=== PATIENT | female | born 1945 | race Caucasian/White ===

== ENCOUNTER 2017-04-05 08:14 | Inpatient (IN) | payer MEDICARE, OTHER ==
[~2017-04-05] VITALS: Ht 177.8 cm; Wt 104.3 kg
[2017-04-05] VITALS (7 sets, daily range): BP systolic 123–159; BP diastolic 62–77
[~2017-04-05 08:14] MED LIST: FLUT1AER IH; GLUC-144 PO; IRON150C3 PO; KCL20TCR; LOSA1TAB20 PO; LOSA1TAB70 PO; METO-272 PO; MTP25TSR; NF-SOLIF5T PO
[2017-04-05 09:19] LABS: BASOPHILS % (AUTO) 1 % (0-10); EOSINOPHILS # (AUTO) 0.6 10^3/uL (0.0-0.3); EOSINOPHILS % (AUTO) 8 % (0-10); LYMPHOCYTES # (AUTO) 1.2 X 10^3 (1.0-4.0); LYMPHOCYTES % (AUTO) 17 % (12-44); MEAN CORPUSCULAR HEMOGLOBIN 17 PG (25-34); MEAN CORPUSCULAR HGB CONC 27 G/DL (32-36); MEAN CORPUSCULAR VOLUME 64 FL (80-99); MONOCYTES # (AUTO) 0.7 X 10^3 (0.0-1.0); MONOCYTES % (AUTO) 9 % (0-12); NEUTROPHILS # (AUTO) 4.9 X 10^3 (1.8-7.8); NEUTROPHILS % (AUTO) 66 % (42-75); PLATELET COUNT 246 10^3/uL (130-400); RED BLOOD COUNT 4.01 10^6/uL (4.35-5.85); RED CELL DISTRIBUTION WIDTH 22.9 % (10.0-14.5); WHITE BLOOD COUNT 7.4 10^3/uL (4.3-11.0)
[2017-04-05 09:24] LABS: BILIRUBIN,URINE NEGATIVE (NEGATIVE); KETONES,URINE NEGATIVE (NEGATIVE); LEUKOCYTE ESTERASE ,URINE 3+ (NEGATIVE); NITRITE,URINE NEGATIVE (NEGATIVE); PH,URINE 6 (5-9); PROTEIN,URINE 3+ (NEGATIVE); UROBILINOGEN,URINE NORMAL (NORMAL)
[2017-04-05 09:28] LABS: CALCIUM OXALATE CRYSTALS,UR RARE /LPF; SQUAMOUS EPITHELIAL CELL,UR 25-50 /HPF
[2017-04-05 09:30] LABS: INR 1.2 (0.8-1.4)
[2017-04-05 09:38] LABS: ALANINE AMINOTRANSFERASE 16 U/L (0-55); ALBUMIN 3.4 GM/DL (3.2-4.5); ANION GAP 10 MMOL/L (5-14); ASPARTATE AMINO TRANSFERASE 16 U/L (5-34); BILIRUBIN,TOTAL 0.7 MG/DL (0.1-1.0); BLOOD UREA NITROGEN 14 MG/DL (7-18); BUN/CREATININE RATIO 20 (0-20); CALCIUM 8.9 MG/DL (8.5-10.1); CARBON DIOXIDE 26 MMOL/L (21-32); CHLORIDE 104 MMOL/L (98-107); CREATININE SERUM 0.69 MG/DL (0.60-1.30); GFR ESTIMATED > 60; GLUCOSE 115 MG/DL (70-105); HEMOLYSIS 1 (-100-29); ICTERUS 0.6 (-100-1.9); LIPEMIA -3 (-100-49); POTASSIUM 3.8 MMOL/L (3.6-5.0); SODIUM 140 MMOL/L (135-145); TOTAL PROTEIN 6.2 GM/DL (6.4-8.2); hs C REACTIVE PROTEIN 2.14 MG/DL (0.00-0.50)
--- NOTE | 2017-04-05 09:39 | Diagnostic Imaging Report ---
INDICATION: Cough and congestion, shortness of breath. Compared 03/28/2016 FINDINGS: The lungs are clear. The heart and vessels normal. There is no effusion or pneumothorax. IMPRESSION: No acute appearing abnormality Dictated by: Dictated on workstation # [id number]
--- NOTE | 2017-04-05 09:46 | ED General ---
General Chief Complaint: Cough/Cold/Flu Symptoms Stated Complaint: ANEMIA Nursing Triage Note: pt has had cough for several weeks. she was seen at [facility] et had testing done. she reports persistent weakness et soa. diagnosed with severe anemia. she had positive occult stool. started taking iron . plans to have colonoscopy after 04/14/17. Nursing Sepsis Screen: No Definite Risk Source of Information: Patient, Old Records Exam Limitations: No Limitations History of Present Illness Time Seen by Provider: 08:24 Initial Comments This 71-year-old woman presents to the emergency room with complaints of significant weakness and dyspnea on exertion for about a month. She notes not feeling well since January when she had a bladder procedure done at [facility]. She has a history of bladder cancer which has been intermittently treated for about the last 10 years. She has had some other minor abnormalities she notes including some bruising under the left eye and a gout flare about 10 days ago. She was evaluated for anemia by Hemoccult card at Dr. Chavez's office. She was notified this was positive. Arrangements were made for endoscopy scheduled in April. Review of her chart reveals EGD and colonoscopy performed by Dr. Grayson last May. There was evidence of possible gastric, duodenal, and colon hemorrhage. She was on NSAIDs at the time and has since stopped NSAIDs and has been taking antacid therapy. She denies any pain at this time. She also has had a cough recently but no fever. Allergies and Home Medications Allergies Coded Allergies: No Known Drug Allergies (Verified , 05/19/07) Home Medications Ferrous Sulfate 325 Mg Tablet, 325 MG PO BID, (Reported) Fluticasone/Vilanterol 1 Each Blst.w.dev, 1 EACH IH BID PRN for WHEEZING, ( Reported) Hydrocodone/Acetaminophen 1 Each Tablet, 1 EACH PO Q8H PRN for PAIN, (Reported) Losartan/Hydrochlorothiazide 1 Each Tablet, 1 EACH PO DAILY, (Reported) Metoprolol Succinate 50 Mg Tab.sr.24h, 50 MG PO DAILY, (Reported) Solifenacin Succinate 5 Mg Tablet, 5 MG PO DAILY, (Reported) Constitutional: see HPI EENTM: see HPI Respiratory: see HPI Cardiovascular: no symptoms reported Gastrointestinal: see HPI Genitourinary: see HPI : No Musculoskeletal: no symptoms reported Skin: see HPI Psychiatric/Neurological: No Symptoms Reported Hematologic/Lymphatic: See HPI Immunological/Allergic: see HPI Past Jtvfgbx-Ahoqox-Zabjgs Hx Patient Social History Alcohol Use: Denies Use Recreational Drug Use: No Type Used: Cigarettes Recent Foreign Travel: No Contact w/Someone Who Travel: No Recent Infectious Disease Expo: No Immunizations Up To Date Date of Pneumonia Vaccine: May 30, 2015 Surgeries HX Surgeries: Yes (left TKR) Surgeries: Abdominal (colonoscopy and EGD) Respiratory Hx Respiratory Disorders: No Cardiovascular Hx Cardiac Disorders: Yes Cardiac Disorders: Hypertension Neurological Hx Neurological Disorders: No Reproductive System : No Hx Reproductive Disorders: No Genitourinary Hx Genitourinary Disorders: Yes (bladder cancer) Gastrointestinal Hx Gastrointestinal Disorders: Yes Gastrointestinal Disorders: Gastrointestinal Bleed Musculoskeletal Hx Musculoskeletal Disorders: Yes (ARTHRITIS) Endocrine Hx Endocrine Disorders: No HEENT HX ENT Disorders: No Cancer Hx Cancer: Yes Cancer: Bladder Psychosocial Hx Psychiatric Problems: No Blood Transfusions Hx Blood Disorders: Yes (anemia) Physical Exam Vital Signs Vital Sign - Last 12Hours 04/05/17 04/05/17 04/05/17 08:43 11:03 11:25 Temp 97.8 Pulse 93 Resp 20 B/P (MAP) 148/62 Pulse Ox 98 O2 Delivery Room Air Capillary Refill : Less Than 3 Seconds General Appearance: No Apparent Distress, WD/WN HEENT: PERRL/EOMI, Normal ENT Inspection, Pharynx Normal Neck: Normal Inspection Respiratory: Lungs Clear, Normal Breath Sounds, No Accessory Muscle Use, No Respiratory Distress Cardiovascular: Regular Rate, Rhythm, No Edema, No Murmur Gastrointestinal: Normal Bowel Sounds, Non Tender, Soft Extremity: Normal Inspection Neurologic/Psychiatric: Alert, Oriented x3, No Motor/Sensory Deficits, Normal Mood/Affect, hand ii blocker II-XII Norm as Tested Skin: Normal Color, Warm/Dry Progress/Results/Core Measures Results/Orders Lab Results Laboratory Tests Test 04/05/17 09:08 04/05/17 09:10 04/05/17 21:55 04/06/17 06:10 Range/Units White Blood Count 7.4 4.3-11.0 10^3/uL Red Blood Count 4.01 L 4.35-5.85 10^6/uL Hemoglobin 6.9 *L 8.8 #L 8.6 L 11.5-16.0 G/DL Hematocrit 26 L 30 L 30 L 35-52 % Mean Corpuscular Volume 64 L 80-99 FL Mean Corpuscular Hemoglobin 17 L 25-34 PG Mean Corpuscular Hemoglobin Concent 27 L 32-36 G/DL Red Cell Distribution Width 22.9 H 10.0-14.5 % Platelet Count 246 130-400 10^3/uL Mean Platelet Volume 9.0 7.4-10.4 FL Neutrophils (%) (Auto) 66 42-75 % Lymphocytes (%) (Auto) 17 12-44 % Monocytes (%) (Auto) 9 0-12 % Eosinophils (%) (Auto) 8 0-10 % Basophils (%) (Auto) 1 0-10 % Neutrophils # (Auto) 4.9 1.8-7.8 X 10^3 Lymphocytes # (Auto) 1.2 1.0-4.0 X 10^3 Monocytes # (Auto) 0.7 0.0-1.0 X 10^3 Eosinophils # (Auto) 0.6 H 0.0-0.3 10^3/uL Basophils # (Auto) 0.0 0.0-0.1 10^3/uL Prothrombin Time 15.0 H 12.2-14.7 SEC INR Comment 1.2 0.8-1.4 Activated Partial Thromboplast Time 31 24-35 SEC Sodium Level 140 135-145 MMOL/L Potassium Level 3.8 3.6-5.0 MMOL/L Chloride Level 104 98-107 MMOL/L Carbon Dioxide Level 26 21-32 MMOL/L Anion Gap 10 5-14 MMOL/L Blood Urea Nitrogen 14 7-18 MG/DL Creatinine 0.69 0.60-1.30 MG/DL Estimat Glomerular Filtration Rate > 60 BUN/Creatinine Ratio 20 0-20 Glucose Level 115 H 70-105 MG/DL Calcium Level 8.9 8.5-10.1 MG/DL Iron Level 10 L 35-180 ug/dL Total Iron Binding Capacity 425 H 280-380 ug/dL Unsaturated Iron Binding Capacity 415 ug/dL Transferrin % Saturation 2 L 15-50 % Ferritin 22.1 15.0-150.0 ng/mL Total Bilirubin 0.7 0.1-1.0 MG/DL Aspartate Amino Transf (AST/SGOT) 16 5-34 U/L Alanine Aminotransferase (ALT/SGPT) 16 0-55 U/L Alkaline Phosphatase 95 40-136 U/L C-Reactive Protein High Sensitivity 2.14 H 0.00-0.50 MG/DL Total Protein 6.2 L 6.4-8.2 GM/DL Albumin 3.4 3.2-4.5 GM/DL Urine Color YELLOW Urine Clarity SLIGHTLY CLOUDY Urine pH 6 5-9 Urine Specific [place] 1.015 L 1.016-1.022 Urine Protein 3+ H NEGATIVE Urine Glucose (UA) NEGATIVE NEGATIVE Urine Ketones NEGATIVE NEGATIVE Urine Nitrite NEGATIVE NEGATIVE Urine Bilirubin NEGATIVE NEGATIVE Urine Urobilinogen NORMAL NORMAL MG/DL Urine Leukocyte Esterase 3+ H NEGATIVE Urine RBC (Auto) 1+ H NEGATIVE Urine RBC RARE /HPF Urine WBC 10-25 H /HPF Urine Squamous Epithelial Cells 25-50 H /HPF Urine Crystals PRESENT H /LPF Urine Calcium Oxalate Crystals RARE H /LPF Urine Bacteria NEGATIVE /HPF Urine Casts NONE /LPF Urine Mucus NEGATIVE /LPF Urine Culture Indicated YES Micro Results Microbiology 04/05/17 Urine Culture - Preliminary, Resulted My Orders Orders - IVAN HARRELL MD Saline Lock/Iv-Start (04/05/17 08:24) Cbc With Automated Diff (04/05/17 08:24) Comprehensive Metabolic Panel (04/05/17 09:04) Hs C Reactive Protein (04/05/17 09:04) Protime With Inr (04/05/17 09:04) Partial Thromboplastin Time (04/05/17 09:04) Ua Culture If Indicated (04/05/17 09:04) Chest Pa/Lat (2 View) (04/05/17 09:04) Urine Culture (04/05/17 09:10) Red Cells Leukocytes Reduced (04/05/17 09:30) Type And Screen (04/05/17 09:30) Ns Iv 1000 Ml (Sodium Chloride 0.9%) (04/05/17 10:03) Red Cells Leukocytes Reduced (04/05/17 10:07) Pantoprazole Injection (Protonix Injecti (04/05/17 10:15) Iron Tibc %Sat & Ferritin (04/05/17 10:14) Medications Given in ED Vital Signs/I&O Vital Sign - Last 12Hours 04/06/17 04/06/17 04/06/17 04:00 08:00 09:00 Temp 98.4 97.1 Pulse 82 80 Resp 18 20 B/P (MAP) 152/82 135/61 Pulse Ox 92 97 O2 Delivery Room Air Room Air Room Air Blood Pressure Mean: 90 Progress Note : Progress Note Patient was found to be severely anemic. 2 units of PRBCs were ordered for transfusion with 2 units to be held. Protonix 40 mg IV was ordered to be given in the ER. Urinary tract infection will be treated with Rocephin on the floor. Blood transfusion will be started on the floor as well. I reviewed risks and benefits of transfusion with the patient and she verbally consents. Diagnostic Imaging Diagonstic Imaging: Xray Plain Films/CT/US/NM/MRI: chest Comments Chest X reviewed by me and report reviewed. See report below: NAME: EDITH ROMERO [facility] REC#: [id number] PT STATUS: REG ER : 1945 PHYSICIAN: IVAN HARRELL MD ADMIT DATE: 04/05/17/ER Draft Date of Exam:04/05/17 CHEST PA/LAT (2 VIEW) INDICATION: Cough and congestion, shortness of breath. Compared 03/28/2016 FINDINGS: The lungs are clear. The heart and vessels normal. There is no effusion or pneumothorax. IMPRESSION: No acute appearing abnormality Dictated on workstation # [id number] Dict: 04/05/1721 Trans: 04/05/17 0939 [facility] [id number] Interpreted by: DIONNA KENYON Departure Communication Time/Spoke to Admitting Phy: 10:[address] tAkinson Time/Spoke to Consulting Physi: 10:05 Communication/Consulting Dr. Freeman Impression Impression: Primary Impression: Severe anemia Additional Impressions: Dyspnea on exertion GI bleed Qualified Codes: K92.2 - Gastrointestinal hemorrhage, unspecified Urinary tract infection Qualified Codes: N39.0 - Urinary tract infection, site not specified History of bladder cancer Generalized weakness Disposition: ADMITTED INPATIENT Condition: Improved Decision to Admit Reason: Admit from ER (General) Decision to Admit/Date: Apr 05, 2017 Time/Decision to Admit Time: 09:45 Departure-Patient Inst. Referrals: KEYONA CHAVEZ DO (PCP/Family) Primary Care Physician IVAN HARRELL MD Apr 05, 2017 09:46
[2017-04-05] MEDS ORDERED: NS IV 1000 ML 1,000 ML IV ONE (10:03)
[2017-04-05] MEDS ORDERED: PANTOPRAZOLE 40 MG/10 ML (PROTONIX) VIAL IV ONE (10:15)
[2017-04-05] MEDS ORDERED: CATHETER FLUSH 10 ML SYR IV PRN (11:45)
[2017-04-05] MEDS ORDERED: ONDANSETRON 4 MG/2 ML (SDV) Z0FRAN IV PRN (11:45)
[2017-04-05] MEDS: cefTRIAXone 1 GM/NS 50 ML IVPB IV SCH ×2 (11:46)
[2017-04-05] MEDS: NS IV 1000 ML 1,000 ML IV SCH (11:51)
--- NOTE | 2017-04-05 12:34 | History & Physical-Hospitalist ---
HPI History of Present Illness: HPI/Chief Complaint CC: Severe weakness and dyspnea with severe anemia with hemoglobin 6.9 HPI: This is a 71-year-old white female clinic patient of Dr. Chavez with a past medical history of GI bleed due to ulcers in May 2016 after she was scoped by Dr. Grayson and history of bladder cancer managed at [facility] with recent bladder procedure in January 2017 the presents to the hospital due to weakness and dyspnea that worsened to the point that she can no longer make it around her house. She was found to have hemoglobin of 6.9 and had a history of Hemoccult positive at Dr. Chavez's office so Scopes were arranged at that time for April but she is worsen to the point that she has to have transfusions and likely endoscopy while she is in the hospital. Currently she denies any abdominal pain no melena and no hematochezia and no hematemesis. Source: patient Exam Limitations: no limitations Date Seen 04/05/17 Time Seen by Provider: 11:15 Attending Physician Cyndy Lilly DO PCP Ian Chavez DO Referring Physician Date of Admission Apr 05, 2017 at 10:33 Home Medications & Allergies Home Medications Reviewed patient Home Medication Reconciliation Form Allergies Allergies Coded Allergies No Known Drug Allergies (Verified05/19/07) Past Ternpcm-Aitdep-Floahz Hx Patient Social History Marrital Status: Employed/Student: retired Alcohol Use: Denies Use Recreational Drug Use: No Type Used: Cigarettes Recent Foreign Travel: No Contact w/other who traveled: No Recent Infectious Disease Expo: No Immunizations Up To Date Date of Pneumonia Vaccine: May 30, 2015 Surgeries HX Surgeries: Yes (left TKR) Surgeries: Abdominal (colonoscopy and EGD) Respiratory Hx Respiratory Disorders: No Cardiovascular Hx Cardiovascular Disorders: Yes Cardiac Disorders: Hypertension Neurological Hx Neurological Disorders: No Reproductive System : No Hx Reproductive Disorders: No Genitourinary Hx Genitourinary Disorders: Yes (bladder cancer) Genitourinary Disorders: Bladder Infection Gastrointestinal Hx Gastrointestinal Disorders: Yes Gastrointestinal Disorders: Gastrointestinal Bleed, Esophagitis Musculoskeletal Hx Musculoskeletal Disorders: Yes (ARTHRITIS) Musculoskeletal Disorders: Arthritis Endocrine Hx Endocrine Disorders: No HEENT HX ENT Disorders: No Cancer Hx Cancer: Yes Cancer: Bladder Psychosocial Hx Psychiatric Problems: No Blood Transfusions Hx Blood Disorders: Yes (anemia) Review of Systems Date Seen by Provider: Apr 05, 2017 Time Seen by Provider: 11:15 Constitutional: see HPI, dizziness, weakness EENTM: no symptoms reported Respiratory: dyspnea on exertion Cardiovascular: no symptoms reported Gastrointestinal: constipation Genitourinary: no symptoms reported Musculoskeletal: back pain Skin: no symptoms reported Psychiatric/Neurological: No Symptoms Reported All Other Systems Reviewed Negative Unless Noted: Yes Physical Exam Physical Exam Vital Signs Vital Sign - Last 12Hours 04/05/17 08:43 Temp 97.8 Pulse 93 Resp 20 B/P (MAP) 148/62 Capillary Refill : Less Than 3 Seconds General Appearance: No Apparent Distress, WD/WN, Chronically ill, Other (pale) Eyes: Bilateral Eye Normal Inspection, Bilateral Eye PERRL HEENT: PERRL/EOMI, Normal ENT Inspection, Pharynx Normal Neck: Full Range of Motion, Normal Inspection, Non Tender, Supple, Carotid Bruit Respiratory: Chest Non Tender, Lungs Clear, Normal Breath Sounds, No Accessory Muscle Use, No Respiratory Distress Cardiovascular: Regular Rate, Rhythm, No Edema, No Gallop, No JVD, No Murmur, Normal Peripheral Pulses Gastrointestinal: Normal Bowel Sounds, No Organomegaly, No Pulsatile Mass, Non Tender, Soft Back: Normal Inspection, No CVA Tenderness, No Vertebral Tenderness Extremity: Normal Capillary Refill, Normal Inspection, Normal Range of Motion, Non Tender, No Calf Tenderness, No Pedal Edema Neurologic/Psychiatric: Alert, Oriented x3, No Motor/Sensory Deficits, Normal Mood/Affect Skin: Normal Color, Warm/Dry Lymphatic: No Adenopathy Results Results/Procedures Lab Laboratory Tests 04/05/17 09:08 Assessment/Plan Admission Diagnosis Assessment: Dyspnea with weakness and severe anemia hemoglobin 6.9 in need of transfusions with a history of gastric ulcer bleed last year History of bladder cancer managed at [facility] Hypertension GERD Asthma Assessment and Plan Plan: Transfuse 2 units of packed red blood cells Consult Dr. Freeman for endoscopies Iron workup Reconcile all home meds when completed CYNDY LILLY DO Apr 05, 2017 12:34
[2017-04-05] MEDS ORDERED: HYDR-3812 PO (12:37)
[2017-04-05] MEDS ORDERED: FERR-74 PO (12:39)
--- NOTE | 2017-04-05 16:26 | Consultation ---
History of Present Illness History of Present Illness Patient Consulted On(cielo/time) 04/05/17 12:40 Date of Admission History of Present Illness consult for anemia from Dr. Atkinson Patientis a 71-year-old female who states that she's been feeling weak for approximately 5 weeks. Patient states that she would get short of breath while walking around her house. Patient was found to have occult positive stool recently in Dr. Chavez's office. She has history of gastric ulcer in 2016 she states, she was noted to have angiodysplasia of the GI tract along with gastritis. Patient does not have any significant abdominal pain she states. She is just easily fatigued. She has not noticed any blood in her stools. She does state there dark but she does take iron. She denies any nausea vomiting fever sweats chills or chest pain. Allergies and Home Medications Allergies Coded Allergies: No Known Drug Allergies (Verified , 05/19/07) Home Medications Ferrous Sulfate 325 Mg Tablet, 325 MG PO BID, (Reported) Fluticasone/Vilanterol 1 Each Blst.w.dev, 1 EACH IH BID PRN for WHEEZING, ( Reported) Glucosamine HCl/Chondr [place] A Na 1 Each Tablet, 1 EACH PO DAILY, (Reported) Hydrocodone/Acetaminophen 1 Each Tablet, 1 EACH PO Q8H PRN for PAIN, (Reported) Losartan/Hydrochlorothiazide 1 Each Tablet, 1 EACH PO DAILY, (Reported) Metoprolol Succinate 50 Mg Tab.sr.24h, 50 MG PO DAILY, (Reported) Solifenacin Succinate 5 Mg Tablet, 5 MG PO DAILY, (Reported) Past Chposud-Thdacf-Edlkkt Hx Patient Social History Alcohol Use: Denies Use Recreational Drug Use: No Type Used: Cigarettes Recent Foreign Travel: No Contact w/Someone Who Travel: No Recent Infectious Disease Expo: No Recent Hopitalizations: No Physical Abuse Screen: No Sexual Abuse: No Immunizations Up To Date Date of Pneumonia Vaccine: May 30, 2015 Seasonal Allergies Seasonal Allergies: No Surgeries HX Surgeries: Yes (left TKR) Surgeries: Abdominal, Hysterectomy Respiratory Hx Respiratory Disorders: No Respiratory Disorders: Pneumonia Cardiovascular Hx Cardiac Disorders: Yes Cardiac Disorders: Hypertension Neurological Hx Neurological Disorders: No Reproductive System : No Hx Reproductive Disorders: No Sexually Transmitted Disease: No HIV/AIDS: No Female Reproductive Disorders: Denies Genitourinary Hx Genitourinary Disorders: Yes (bladder cancer) Genitourinary Disorders: Bladder Infection Gastrointestinal Hx Gastrointestinal Disorders: Yes Gastrointestinal Disorders: Gastrointestinal Bleed, Esophagitis Musculoskeletal Hx Musculoskeletal Disorders: Yes (ARTHRITIS) Musculoskeletal Disorders: Arthritis Endocrine Hx Endocrine Disorders: No HEENT HX ENT Disorders: No HEENT Disorders: Cataract Loss of Vision: Denies Hearing Impairment: Denies Cancer Hx Cancer: Yes Cancer: Bladder Psychosocial Hx Psychiatric Problems: No Blood Transfusions Hx Blood Disorders: Yes (anemia) Family Medical History Significant Family History: No Pertinent Family Hx Review of Systems-General Date Seen by Provider: Apr 05, 2017 Time Seen by Provider: 12:40 Constitutional: weakness EENTM: no symptoms reported Respiratory: dyspnea on exertion Cardiovascular: no symptoms reported Gastrointestinal: see HPI Genitourinary: no symptoms reported Musculoskeletal: no symptoms reported Skin: no symptoms reported Psychiatric/Neurological: No Symptoms Reported Physical Exam-General Problems Physical Exam Vital Signs Vital Sign - Last 12Hours 04/05/17 04/05/17 04/05/17 08:43 11:03 11:25 Temp 97.8 Pulse 93 Resp 20 B/P (MAP) 148/62 Pulse Ox 98 O2 Delivery Room Air Capillary Refill : Less Than 3 Seconds General Appearance: no apparent distress HEENT: PERRL/EOMI, normal ENT inspection Neck: supple Respiratory: no respiratory distress, no accessory muscle use Cardiovascular: regular rate, rhythm Gastrointestinal: non tender, soft, No distended, No guarding, No rebound Rectal: deferred Back: normal inspection Extremities: non-tender, normal inspection Neurologic/Psychiatric: alert, normal mood/affect, oriented x 3 Skin: warm/dry Data Review Labs Laboratory Tests 04/05/17 09:08: White Blood Count 7.4, Red Blood Count 4.01L, Hemoglobin 6.9*L, Hematocrit 26L, Mean Corpuscular Volume 64L, Mean Corpuscular Hemoglobin 17L, Mean Corpuscular Hemoglobin Concent 27L, Red Cell Distribution Width 22.9H, Platelet Count 246, Mean Platelet Volume 9.0, Neutrophils (%) (Auto) 66, Lymphocytes (%) (Auto) 17, Monocytes (%) (Auto) 9, Eosinophils (%) (Auto) 8, Basophils (%) (Auto) 1, Neutrophils # (Auto) 4.9, Lymphocytes # (Auto) 1.2, Monocytes # (Auto) 0.7, Eosinophils # (Auto) 0.6H, Basophils # (Auto) 0.0, Prothrombin Time 15.0H, INR Comment 1.2, Activated Partial Thromboplast Time 31, Sodium Level 140, Potassium Level 3.8, Chloride Level 104, Carbon Dioxide Level 26, Anion Gap 10, Blood Urea Nitrogen 14, Creatinine 0.69, Estimat Glomerular Filtration Rate > 60 , BUN/Creatinine Ratio 20, Glucose Level 115H, Calcium Level 8.9, Total Bilirubin 0.7, Aspartate Amino Transf (AST/SGOT) 16, Alanine Aminotransferase ( ALT/SGPT) 16, Alkaline Phosphatase 95, C-Reactive Protein High Sensitivity 2.14H , Total Protein 6.2L, Albumin 3.4 04/05/17 09:10: Urine Color YELLOW, Urine Clarity SLIGHTLY CLOUDY, Urine pH 6, Urine Specific [place] 1.015L, Urine Protein 3+H, Urine Glucose (UA) NEGATIVE, Urine Ketones NEGATIVE, Urine Nitrite NEGATIVE, Urine Bilirubin NEGATIVE, Urine Urobilinogen NORMAL, Urine Leukocyte Esterase 3+H, Urine RBC (Auto) 1+H, Urine RBC RARE, Urine WBC 10-25H, Urine Squamous Epithelial Cells 25-50H, Urine Crystals PRESENTH, Urine Calcium Oxalate Crystals RAREH, Urine Bacteria NEGATIVE, Urine Casts NONE, Urine Mucus NEGATIVE, Urine Culture Indicated YES Assessment/Plan Assessment/Plan Assessment/Plan patient is 71-year-old female with severe anemia with a hemoglobin of 6.9. She is recent outpatient Hemoccult positive stool she has a history of gastric ulcer and angiodysplasia along the GI tract, history of bladder cancer hypertension Patient is being transfused 2 units packed red blood cells. We will continue to monitor hemoglobin. Would place on Protonix 40 mg IV twice a day. Will transfuse as needed. We'll possibly plan on endoscopy inpatient if does not stabilize. Nothing by mouth after midnight Clinical Quality Measures DVT/VTE Risk/Contraindication: Risk Factor Score Per Nursin RFS Level Per Nursing on Admit: 4+=Very High TRACE ROMERO DO Apr 05, 2017 4:25 pm
[2017-04-05] MEDS ORDERED: fentaNYL INJECTION 100 MCG/2 ML AMP IVP PRN (17:00)
[2017-04-05] MEDS ORDERED: ACETAMINOPHEN 500 MG TAB (TYLENOL) PO PRN (17:00)
[2017-04-05] MEDS ORDERED: ONDANSETRON 4 MG/2 ML (SDV) Z0FRAN IVP PRN (17:00)
[2017-04-05] MEDS ORDERED: HYDROcodone/APAP 5 MG/325 MG (LORTAB) TAB PO PRN (17:00)
[2017-04-05] MEDS ORDERED: ALPRAZolam 0.25 MG (XANAX) TAB PO PRN (17:00)
[2017-04-05] MEDS ORDERED: RT-ADVAIR HFA 115/21 MCG PER PUFF IH PRN (20:00)
[2017-04-05] MEDS: PANTOPRAZOLE 40 MG/10 ML (PROTONIX) VIAL IV SCH (21:52)
[2017-04-06] VITALS: BP 131/67
[2017-04-06] MEDS: NS IV 1000 ML 1,000 ML IV SCH (01:41)
[2017-04-06 04:00] VITALS: BP 152/82
[2017-04-06] MEDS ORDERED: TROSPIUM 20 MG (SANCTURA) TAB PO SCH (06:00)
[2017-04-06 06:55] LABS: FERRITIN 22.1 ng/mL (15.0-150.0)
[2017-04-06 08:00] VITALS: BP 135/61
[2017-04-06] MEDS ORDERED: IRON SUCROSE INJECTION 200 MG in NS (IVPB) 100 ML IV SCH (08:00)
[2017-04-06] MEDS: PANTOPRAZOLE 40 MG/10 ML (PROTONIX) VIAL IV SCH (08:54)
[2017-04-06] MEDS: cefTRIAXone 1 GM/NS 50 ML IVPB IV SCH ×2 (08:55)
[2017-04-06] MEDS ORDERED: HYDROCHLOROTHIAZIDE 25 MG (HCTZ) TAB PO SCH (09:00)
[2017-04-06] MEDS ORDERED: meTOproloL SUCCINATE 50 MG (TOPROL XL) TAB PO SCH (09:00)
[2017-04-06] MEDS ORDERED: LOSARTAN 50 MG (COZAAR) TAB PO SCH (09:00)
--- NOTE | 2017-04-06 09:12 | Progress Note ---
Subjective Time Seen by Provider: 08:40 Subjective/Events-last exam Patient sitting up by her bed. Even respirations. No distress. Denies any n/v. Denies any dark tarry stools. Objective Exam Vital Signs Date Time Temp Pulse Resp B/P (MAP) Pulse Ox O2 Delivery O2 Flow Rate FiO2 04/06/17 04:00 98.4 82 18 152/82 92 Room Air 04/06/17 00:00 98.0 78 16 131/67 95 Room Air 04/05/17 19:15 99.4 83 20 159/68 95 Room Air 04/05/17 19:15 99.4 83 20 159/68 95 Room Air 04/05/17 17:02 99.0 89 20 147/75 96 Room Air 04/05/17 16:45 98.9 84 20 144/77 97 Room Air 04/05/17 16:45 98.9 84 20 144/77 97 Room Air 04/05/17 15:02 98.7 78 20 151/77 98 Room Air 04/05/17 13:05 98.2 80 20 123/70 98 Room Air 04/05/17 12:41 98.7 85 20 133/62 99 Room Air 04/05/17 12:00 Room Air 04/05/17 11:25 99.3 85 18 133/62 99 Room Air 04/05/17 11:03 90 18 98 I & O 04/06/17 07:00 Intake Total 0 ml Output Total 600 ml Balance -600 ml Capillary Refill : Less Than 3 Seconds General Appearance: No Apparent Distress, WD/WN, Chronically ill, Other (pale) HEENT: PERRL/EOMI, Normal ENT Inspection, Pharynx Normal Neck: Full Range of Motion, Normal Inspection, Non Tender Respiratory: Chest Non Tender, No Accessory Muscle Use, No Respiratory Distress Cardiovascular: Regular Rate, Rhythm, Normal Peripheral Pulses Gastrointestinal: non tender, soft, no organomegaly, No distended, No guarding , No rebound Extremity: Normal Capillary Refill, Normal Inspection, Normal Range of Motion, Non Tender, No Calf Tenderness, No Pedal Edema Neurologic/Psychiatric: Alert, Oriented x3, No Motor/Sensory Deficits, Normal Mood/Affect Skin: Normal Color, Warm/Dry Lymphatic: No Adenopathy Results Lab Laboratory Tests Test 04/05/17 09:08 6/25/17 09:10 04/05/17 21:55 04/06/17 06:10 Range/Units White Blood Count 7.4 4.3-11.0 10^3/uL Red Blood Count 4.01 L 4.35-5.85 10^6/uL Hemoglobin 6.9 *L 8.8 #L 8.6 L 11.5-16.0 G/DL Hematocrit 26 L 30 L 30 L 35-52 % Mean Corpuscular Volume 64 L 80-99 FL Mean Corpuscular Hemoglobin 17 L 25-34 PG Mean Corpuscular Hemoglobin Concent 27 L 32-36 G/DL Red Cell Distribution Width 22.9 H 10.0-14.5 % Platelet Count 246 130-400 10^3/uL Mean Platelet Volume 9.0 7.4-10.4 FL Neutrophils (%) (Auto) 66 42-75 % Lymphocytes (%) (Auto) 17 12-44 % Monocytes (%) (Auto) 9 0-12 % Eosinophils (%) (Auto) 8 0-10 % Basophils (%) (Auto) 1 0-10 % Neutrophils # (Auto) 4.9 1.8-7.8 X 10^3 Lymphocytes # (Auto) 1.2 1.0-4.0 X 10^3 Monocytes # (Auto) 0.7 0.0-1.0 X 10^3 Eosinophils # (Auto) 0.6 H 0.0-0.3 10^3/uL Basophils # (Auto) 0.0 0.0-0.1 10^3/uL Prothrombin Time 15.0 H 12.2-14.7 SEC INR Comment 1.2 0.8-1.4 Activated Partial Thromboplast Time 31 24-35 SEC Sodium Level 140 135-145 MMOL/L Potassium Level 3.8 3.6-5.0 MMOL/L Chloride Level 104 98-107 MMOL/L Carbon Dioxide Level 26 21-32 MMOL/L Anion Gap 10 5-14 MMOL/L Blood Urea Nitrogen 14 7-18 MG/DL Creatinine 0.69 0.60-1.30 MG/DL Estimat Glomerular Filtration Rate > 60 BUN/Creatinine Ratio 20 0-20 Glucose Level 115 H 70-105 MG/DL Calcium Level 8.9 8.5-10.1 MG/DL Iron Level 10 L 35-180 ug/dL Total Iron Binding Capacity 425 H 280-380 ug/dL Unsaturated Iron Binding Capacity 415 ug/dL Transferrin % Saturation 2 L 15-50 % Ferritin 22.1 15.0-150.0 ng/mL Total Bilirubin 0.7 0.1-1.0 MG/DL Aspartate Amino Transf (AST/SGOT) 16 5-34 U/L Alanine Aminotransferase (ALT/SGPT) 16 0-55 U/L Alkaline Phosphatase 95 40-136 U/L C-Reactive Protein High Sensitivity 2.14 H 0.00-0.50 MG/DL Total Protein 6.2 L 6.4-8.2 GM/DL Albumin 3.4 3.2-4.5 GM/DL Urine Color YELLOW Urine Clarity SLIGHTLY CLOUDY Urine pH 6 5-9 Urine Specific Parkin 1.015 L 1.016-1.022 Urine Protein 3+ H NEGATIVE Urine Glucose (UA) NEGATIVE NEGATIVE Urine Ketones NEGATIVE NEGATIVE Urine Nitrite NEGATIVE NEGATIVE Urine Bilirubin NEGATIVE NEGATIVE Urine Urobilinogen NORMAL NORMAL MG/DL Urine Leukocyte Esterase 3+ H NEGATIVE Urine RBC (Auto) 1+ H NEGATIVE Urine RBC RARE /HPF Urine WBC 10-25 H /HPF Urine Squamous Epithelial Cells 25-50 H /HPF Urine Crystals PRESENT H /LPF Urine Calcium Oxalate Crystals RARE H /LPF Urine Bacteria NEGATIVE /HPF Urine Casts NONE /LPF Urine Mucus NEGATIVE /LPF Urine Culture Indicated YES Laboratory Tests 04/05/17 09:08: White Blood Count 7.4, Red Blood Count 4.01L, Hemoglobin 6.9*L, Hematocrit 26L, Mean Corpuscular Volume 64L, Mean Corpuscular Hemoglobin 17L, Mean Corpuscular Hemoglobin Concent 27L, Red Cell Distribution Width 22.9H, Platelet Count 246, Mean Platelet Volume 9.0, Neutrophils (%) (Auto) 66, Lymphocytes (%) (Auto) 17, Monocytes (%) (Auto) 9, Eosinophils (%) (Auto) 8, Basophils (%) (Auto) 1, Neutrophils # (Auto) 4.9, Lymphocytes # (Auto) 1.2, Monocytes # (Auto) 0.7, Eosinophils # (Auto) 0.6H, Basophils # (Auto) 0.0, Prothrombin Time 15.0H, INR Comment 1.2, Activated Partial Thromboplast Time 31, Sodium Level 140, Potassium Level 3.8, Chloride Level 104, Carbon Dioxide Level 26, Anion Gap 10, Blood Urea Nitrogen 14, Creatinine 0.69, Estimat Glomerular Filtration Rate > 60 , BUN/Creatinine Ratio 20, Glucose Level 115H, Calcium Level 8.9, Iron Level 10L , Total Iron Binding Capacity 425H, Unsaturated Iron Binding Capacity 415, Transferrin % Saturation 2L, Ferritin 22.1, Total Bilirubin 0.7, Aspartate Amino Transf (AST/SGOT) 16, Alanine Aminotransferase (ALT/SGPT) 16, Alkaline Phosphatase 95, C-Reactive Protein High Sensitivity 2.14H, Total Protein 6.2L, Albumin 3.4 04/05/17 09:10: Urine Color YELLOW, Urine Clarity SLIGHTLY CLOUDY, Urine pH 6, Urine Specific Parkin 1.015L, Urine Protein 3+H, Urine Glucose (UA) NEGATIVE, Urine Ketones NEGATIVE, Urine Nitrite NEGATIVE, Urine Bilirubin NEGATIVE, Urine Urobilinogen NORMAL, Urine Leukocyte Esterase 3+H, Urine RBC (Auto) 1+H, Urine RBC RARE, Urine WBC 10-25H, Urine Squamous Epithelial Cells 25-50H, Urine Crystals PRESENTH, Urine Calcium Oxalate Crystals RAREH, Urine Bacteria NEGATIVE, Urine Casts NONE, Urine Mucus NEGATIVE, Urine Culture Indicated YES 04/05/17 21:55: Hemoglobin 8.8#L, Hematocrit 30L 04/06/17 06:10: Hemoglobin 8.6L, Hematocrit 30L Microbiology 04/05/17 Urine Culture - Preliminary, Resulted Assessment/Plan Assessment/Plan Assessment/Plan Anemia- H&H- 8.6 and 30 this morning HX bladder Cancer Hx gastric Ulcer HTN We will continue with Protonix IV 40 mg bid. Transfuse PRBC as needed. EGD this afternoon. Continue NPO. Freeman- Patient with no new complaints. Wanting food. Transfused yesterday. Denies n/v fever sweats chills shortness of breath or chest pain. general no acute distress heart reg lungs nonlabored abdomen soft no organomegaly nontender ext nontender alert and oriented anemia secondary to gi bleed, history of gastric ulcer angiodysplasia along gi tract hx bladder cancer, htn we discussed options wishes to proceed with egd for further evaluation npo protonix bid further recs pending egd Clinical Quality Measures DVT/VTE Risk/Contraindication: Risk Factor Score Per Nursin RFS Level Per Nursing on Admit: 4+=Very High REBECA JHA SENIOR OFFICER Apr 06, 2017 9:12 am TRACE FREEMNA DO Apr 06, 2017 11:00 am
--- NOTE | 2017-04-06 09:41 | Discharge Summary-Hospitalist ---
Diagnosis/Chief Complaint Date of Admission Apr 05, 2017 at 10:33 Date of Discharge Admission Diagnosis Assessment: Dyspnea with weakness and severe anemia hemoglobin 6.9 in need of transfusions with a history of gastric ulcer bleed last year History of bladder cancer managed at [facility] Hypertension GERD Asthma Discharge Diagnosis Assessment: Dyspnea with weakness and severe anemia hemoglobin 6.9 in need of transfusions with a history of gastric ulcer bleed last year and EGD revealed duodenitis and gastric ulcer again placed on appropriate meds History of bladder cancer managed at [facility] Hypertension GERD Asthma Plan: Transfuse 2 units of packed red blood cells Consult Dr. Freeman for endoscopies Iron workup Reconcile all home meds when completed Reason Hospital Visit/Course CC: Severe weakness and dyspnea with severe anemia with hemoglobin 6.9 HPI: This is a 71-year-old white female clinic patient of Dr. Chavez with a past medical history of GI bleed due to ulcers in May 2016 after she was scoped by Dr. Grayson and history of bladder cancer managed at [facility] with recent bladder procedure in January 2017 the presents to the hospital due to weakness and dyspnea that worsened to the point that she can no longer make it around her house. She was found to have hemoglobin of 6.9 and had a history of Hemoccult positive at Dr. Chavez's office so Scopes were arranged at that time for April but she is worsen to the point that she has to have transfusions and likely endoscopy while she is in the hospital. Currently she denies any abdominal pain no melena and no hematochezia and no hematemesis. Had an uneventful hospital course. Received 2 units of blood. EGD revealed no active bleeding but ulcers as likely source and was placed on Carafate and PPI and DC home in stable condition. Discharge Summary Discharge Physical Examination Allergies: Coded Allergies: No Known Drug Allergies (Verified , 05/19/07) Vitals & I&Os Vital Signs Date Time Temp Pulse Resp B/P (MAP) Pulse Ox O2 Delivery O2 Flow Rate FiO2 04/06/17 16:05 75 20 177/76 99 Room Air 04/06/17 12:00 98.2 Hospital Course Labs (last 24 hrs) Laboratory Tests 04/05/17 21:55: Hemoglobin 8.8#L, Hematocrit 30L 04/06/17 06:10: Hemoglobin 8.6L, Hematocrit 30L 04/06/17 14:04: Hemoglobin 8.5L, Hematocrit 29L Microbiology 04/05/17 Urine Culture - Preliminary, Resulted Pending Labs Laboratory Tests 04/06/17 14:04: Hemoglobin 8.5, Hematocrit 29 Discharge Home Medications: Active Scripts Active Carafate (Sucralfate) 1 Gm Tablet 1 Gm PO Q6H Protonix (Pantoprazole Sodium) 40 Mg Tablet.dr 40 Mg PO BID Reported Ferrous Sulfate 325 Mg Tablet 325 Mg PO BID Hydrocodon -Acetaminophen 5-325 (Hydrocodone/Acetaminophen) 1 Each Tablet 1 Each PO Q8H PRN Vesicare (Solifenacin Succinate) 5 Mg Tablet 5 Mg PO DAILY Breo Ellipta 100-25 Mcg INH (Fluticasone/Vilanterol) 1 Each Blst.w.dev 1 Each IH BID PRN Losartan-Hctz 100-25 mg Tab (Losartan/Hydrochlorothiazide) 1 Each Tablet 1 Each PO DAILY Metoprolol Succinate Xl 50 Mg (Metoprolol Succinate) 50 Mg Tab.sr.24h 50 Mg PO DAILY Instructions to patient/family Please see electonic discharge instructions given to patient. Clinical Quality Measures DVT/VTE Risk/Contraindication: Risk Factor Score Per Nursin RFS Level Per Nursing on Admit: 4+=Very High PRABHAKAR LILLY DO Apr 06, 2017 09:41
[2017-04-06 12:00] VITALS: BP 177/76
[2017-04-06] MEDS ORDERED: proPOfol 200 MG/20 ML (DIPRIVAN) VIAL IV ONE (13:08)
[2017-04-06] MEDS ORDERED: HURRICAINE EXT TUBE (BENZOCAINE) ONE (13:08)
[2017-04-06] MEDS ORDERED: NS IV 500 ML 500 ML ONE (13:08)
[2017-04-06] MEDS ORDERED: MIDAZOLAM 2 MG/2 ML (VERSED) VIAL ONE (13:18)
--- NOTE | 2017-04-06 13:40 | Progress Note-Post Operative ---
Post-Operative Progess Note Surgeon (s)/Graphics Specialist (s) Surgeon TRACE ROMERO DO Graphics Specialist: na Pre-Operative Diagnosis gi bleed, anemia Post-Operative Diagnosis duodenitis, small antral ulcer, small hiatal hernia Procedure & Operative Findings Date of Procedure 04/06/17 Procedure Performed/Findings egd c biopsy Anesthesia Type per mda Estimated Blood Loss Estimated blood loss (mL): none Specimens/Packing Specimens Removed antrum TRACE ROMERO DO Apr 06, 2017 1:40 pm
[2017-04-06] MEDS ORDERED: NS IV 500 ML 500 ML IV ONE (13:45)
[2017-04-06] MEDS ORDERED: HURRICAINE EXT TUBE (BENZOCAINE) XX ONE (13:45)
[2017-04-06] MEDS ORDERED: SUCR1TAB36 PO (14:07)
[2017-04-06] MEDS ORDERED: PANT40TA2 PO (14:07)
[2017-04-06 16:05] VITALS: BP 177/76
--- OUTSIDE RECORDS SUMMARY | 2017-04-06 18:19 | XMS REPORT | Continuity of Care Document ---
Author Author [facility] Organization [facility] Address Unknown Phone Unavailable Care Team Providers Care Apprentice Technician Name Role Phone Ian Chavez III PCP [phone] Source Comments Some departments are not documenting in the electronic medical record. If you do not see the information that you expected, contact Release of Information in the Health Information Management department at [phone] for further assistance in locating additional records.[facility] Active Allergies and Adverse Reactions No Known Allergies Current Medications Prescription Sig. Disp. Refills Start End Date Status Date losartan/hydrochlorothiaz Take by mouth daily. Active elisabeth (HYZAAR) 50/12.5 mg tablet solifenacin(+) (VESICARE) Take 10 mg by mouth Active 10 mg tablet daily. metoprolol XL (TOPROL XL) Take 50 mg by mouth Active 50 mg tablet daily. calcium carbonate Take 1,250 mg by mouth Active (OS-DANNIE) 1250 mg tablet daily. ferrous sulfate (FEOSOL, Take 325 mg by mouth Active FEROSUL) 325 mg (65 mg daily. Take on an empty iron) tablet stomach at least 1 hour before or 2 hours after food. ciprofloxacin (CIPRO) 500 Take 1 Tab by mouth twice 2 Tab 0 01/07/20 Active mg tablet daily. 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 Patient in agreement with plan. Smoking cessation counseling given. Most Recent Encounters Date Type Specialty Providers Description 01/26/2017 Hospital Truong Guan MD Bladder cancer (HCC) Encounter 01/26/2017 Anesthesia Sal Cancino MD Event 01/26/2017 Surgery Truong Guan MD BLUE LIGHT CYSTOSCOPY WITH TRANSURETHRAL RESECTION OF BLADDER TUMOR, BILATERAL RETROGRADE PYLEOGRAM, AND RIGHT URETEROSCOPY 01/09/2017 Prep for Case Urology Truong Guan MD 01/06/2017 [facility] Truong Guan MD Malignant neoplasm of Encounter bladder, unspecified (HCC) 01/06/2017 Procedure visit Urology Truong Guan MD Malignant neoplasm of urinary bladder, unspecified site (Primary Dx); Malignant neoplasm of overlapping sites of bladder (HCC) Social History Tobacco Use Types Packs/Day Years Used Date Current Every Day Smoker Cigarettes 1 50 Smokeless Tobacco: Never Used Alcohol Use Drinks/Week oz/Week Comments No 0 Standard 0.0 drinks or equivalent Last Filed Vital Signs Vital Sign Reading Time Taken Blood Pressure 165/44 01/26/2017 12:00 PM CDT Pulse 76 01/26/2017 12:00 PM CDT Temperature 36.7 C (98.1 F) 01/26/2017 11:30 AM CDT Respiratory Rate 14 12/02/2013 10:17 AM NUCLEAR MEDICINE PHYSICIAN Height 1.778 m (5' 10") 01/26/2017 8:43 AM CDT Weight 105.5 kg (232 lb 9.4 oz) 01/26/2017 8:43 AM CDT Body Mass Index 33.37 01/26/2017 8:43 AM CDT Oxygen Saturation 94% 01/26/2017 12:00 PM CDT Plan of Care Health Maintenance Due Date Last Done Comments Hepatitis C Screening 1945 Physical (Comprehensive) 1952 Exam Pertussis Vaccine 1956 Tetanus Vaccine 1962 Breast Cancer Screening 1985 Colorectal Cancer 1995 Screening Shingles Vaccine 2005 Osteoporosis Screening 2010 Prevnar/Pneumovax (#1) 2010 Influenza Vaccine 06/12/2017 Procedures from Last 3 Months Procedure Name Priority Date/Time Associated Diagnosis Comments TELEMETRY STRIPS-SCAN 01/27/2017 Results for this 12:35 PM CDT procedure are in the results section. BLUE LIGHT CYSTOSCOPY 01/26/2017 Bladder cancer (HCC) WITH TRANSURETHRAL 10:40 AM CDT RESECTION OF BLADDER TUMOR, BILATERAL RETROGRADE PYLEOGRAM, AND RIGHT URETEROSCOPY [place] CYSTOURETHROSCOPY Routine 01/11/2017 Malignant neoplasm of Results for this 4:56 PM CDT urinary bladder, procedure are in the unspecified site (HCC) results section. Results from Last 3 Months * TELEMETRY STRIPS-SCAN (01/27/2017 12:35 PM) Narrative Ordered by an unspecified provider. * NON-ASSISTANT SUPERINTENDENT FOR CURRICULUM CYTOLOGY (BODY FLUIDS/TISSUE) (01/26/2017 12:23 PM) Only the most recent of 2 results within the time period is included. Component Value Range Cytology [facility] [email or web address] Charissa Sesay MD, Director Cytopathology Department of Pathology and Laboratory Medicine [address] [place] [id number] Office: [phone] CYTOLOGY REPORT NAME: ZAIDA DEJESUS CYTOLOGY #: [id number] MR #: [id number] ALT ID #: [id number] #: [id number] LOCATION: DATE OF PROCEDURE: 01/26/2017 12:23 AGE: 71 SEX: F DATE RECEIVED: 01/26/2017 : 1945 TIME RECEIVED: 12:23 PHYSICIAN: TRUONG GUAN DATE OF REPORT: 01/27/2017 COPY TO: DATE OF PRINTIN01/27/2017 HISTORY: Date of Last Menstrual Period: None Given Menstrual History: None Given Contraceptive History: None Given Cancer History: None Given Infection History: None Given Treatment History: None Given Other Clinical Conditions: None Given CLINICAL DIAGNOSIS: 71 year old woman with history of high grade urothelial carcinoma. MATERIAL RECEIVED: A: Other Source (Cyto)-Upper tract kidney washing ################################################## ###################### Final Diagnosis: A. Upper tract kidney washing: Atypical urothelial cells present. Attestation: By this signature, I attest that I have personally formulated the final interpretation expressed in this report and that the above diagnosis is based upon my examination of the slides and/or other material indicated in this report. af/01/27/2017 +++Electronically Signed Out By Charissa Sesay MD, Attending Physician+++ Cervical cytology is a SCREENING TEST primarily for detecting cancers and precancerous lesions. This screening test has a well documented false negative rate. Your patient's pap test results should be interpreted in conjunction with history and clinical findings. Reported using [employer] terminology. ################################################## ###################### * SURGICAL PATHOLOGY (01/26/2017 11:11 AM) Component Value Range PATHOLOGY REPORT [facility] [email or web address] Charissa Sesay MD, PhD, Director of Anatomic Pathology Department of Pathology and Laboratory Medicine [address] [place] [id number] Surgical Pathology Office: [phone] SURGICAL PATHOLOGY REPORT NAME: ZAIDA DEJESUS SURG PATH #: [id number] MR #: [id number] SPECIMEN CLASS: SR BILLING #: [id number] ALT ID #: LOCATION: [id number] DATE OF PROCEDURE: 01/26/2017 AGE: 71 SEX: F DATE RECEIVED: 01/26/2017 : 1945 TIME RECEIVED: 11:11 PHYSICIAN: TRUONG GUAN DATE OF REPORT: 02/02/2017 COPY TO: DATE OF PRINTIN02/02/2017 ################################################## ###################### Final Diagnosis: A. Urothelial and squamous mucosa and muscularis propria, "bladder chips", transurethral resection: Marked inflammation, predominantly chronic with numerous eosinophils and focal detached acute inflammatory exudate, focal urothelial hyperplasia and focal reactive type atypia. Muscularis propria present. Attestation: By this signature, I attest that I have personally formulated the final interpretation expressed in this report and that the above diagnosis is based upon my examination of the slides and/or other material indicated in this report. +++Electronically Signed Out By+++ ksw/01/26/2017 Interpreted by: Larry Kahn MD, Attending Physician John Smith M.D. Resident 02/02/2017 ################################################## ###################### Material Received: A: bladder chips History: 71-year-old female with a clinical history of bladder cancer. Gross Description: A. Received in formalin labeled "bladder chips" is a 2.0 x 1.0 x 0.4 cm aggregate of irregular, pale evans, glistening soft tissue fragments. The specimen is entirely submitted in cassettes A1-A3. (jrz) jz/01/26/2017 John Smith M.D. Resident * CYSTOSCOPY (01/11/2017 4:56 PM) Narrative Truong Guan MD 01/11/20174:56 PM Surgeon:Truong Guan MD Preprocedure Diagnosis:Bladder cancer. Postprocedure Diagnosis:Bladder cancer. Operative Procedure:Cystourethroscopy. Anesthesia:Viscous lidocaine jelly, 10 cc. Indications for Operative Procedure:Zaida Dejesus is a 71 y.o. 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 She is now s/p BCG. Informed consent was obtained prior to proceeding. Description of Operative Procedure:The patient was taken to the procedure room and placed in a dorsal lithotomy position.Her genitalia were prepped in sterile fashion.10 cc of viscous lidocaine jelly was instilled per the urethra.The scope was placed at the meatus and then advanced into the bladder.The urethra was without any abnormalities. The bladder was entered without difficulty.There were no bladder neck contractures. Both ureteral orifices were identified in normal size, shape, and position.There multiple red injected areas in the bladder. There was no trabeculation of bladder wall.There are no tumor, stones and foreign bodies identified in the bladder. Retroflex view was performed.No new findings were made. The patient tolerated the procedure well. Plan: Will await cytology, but will likely proceed to blue light cystoscopy and TURBT: I discussed blue light cystoscopy and transurethral resection of bladder tumor in the operating room in detail. Risks, benefits, alternatives, and logistics were discussed. Risks discussed included but not limited to infection, bleeding, injury to urethra/bladder/ureter, bladder perforation, need for open surgery/urethral catheter/ureteral stent/blood transfusion/re-operation, inability to remove tumor, heart attack, stroke, deep venous thrombosis, pulmonary embolus, and . Informed consent was obtained. MD Roge Irving MD
--- OUTSIDE RECORDS SUMMARY | 2017-04-06 18:19 | XMS REPORT ---
Author Author [facility] Organization [facility] Address [address] [place], [place] [id number] Care Team Providers Care Oncology Physician Name Role Phone PCP Unavailable Allergies and Adverse Reactions Name Reaction Notes NO KNOWN DRUG ALLERGIES Plan of Treatment Not available. Medications Active Name Start Date Estimated Completion Date SIG Comments hydrocodone-acetaminophen oral tablet 5-325 mg losartan-hydrochlorothiazide oral tablet 50-12.5 mg metoprolol tartrate oral solifenacin oral trimethoprim oral tablet 100 mg Take one tablet BID for 2 days following each treatment Cipro oral tablet 250 mg take 1 tablet (250 mg) by oral route every 12 hours for 5 days Problem List Description Status Onset Cancer of bladder Active 01/15/2015 Cancer of bladder Active 02/05/2015 Carcinoma of bladder Active 02/12/2015 Carcinoma of bladder Active 02/20/2015 Cancer of bladder Active 04/26/2015 Carcinoma of bladder Active 04/26/2015 Vital Signs Date Time BP-Sys(mm[Hg] BP-Crys(mm[Hg]) HR(bpm) RR(rpm) Temp WT HT HC BMI BSA BMI Percentile O2 Sat(%) 01/08/2015 10:55:00 AM 232.75 lbs 70 in 33.40 kg/m2 2.28 m2 Social History Name Description Comments Alcohol Tobacco Current every day smoker History of Procedures Not available. Results Summary Data and Description Results 05/02/2015 8:53 AM COLOR YELLOW APPEARANCE HAZY SPEC GRAV 1.015 pH 5.0 PROTEIN TRACE GLUCOSE NEGATIVE KETONE NEGATIVE BILIRUBIN NEGATIVE BLOOD LARGE NITRITE NEGATIVE LEUK SCREEN MODERATE CASTS/LPF NEGATIVE CRYSTALS NEGATIVE MUCOUS THRDS NEGATIVE BACTERIA FEW EPITH CELLS NEGATIVE TRICHOMONAS NEGATIVE YEAST NEGATIVE History Of Immunizations Not available. History of Past Illness Name Date of Onset Comments Cancer of bladder 04/26/2015 Carcinoma of bladder 04/26/2015 Cancer of bladder Jan 15 2015 10:32AM Cancer of bladder Jan 22 2015 12:09PM Recurrent Cancer of bladder Jan 29 2015 2:32PM Recurrent Cancer of bladder Feb 05 2015 2:02PM Recurrent Carcinoma of bladder Feb 12 2015 1:41PM Recurrent Carcinoma of bladder Feb 20 2015 1:07PM Recurrent Cancer of bladder Apr 26 2015 2:33PM Recurrent Carcinoma of bladder Apr 26 2015 3:40PM Urinary incontinence May 01 2015 3:57PM Payers Insurance Name Company Name Plan Name Plan Number Policy Number Policy Group Number Start Date Medicare Part B Medicare Of [place] [id number] N/A [employer] [place] /AETNA Medicare Supplement Claims [id number] N /A History of Encounters Visit Date Visit Type Provider 04/26/2015 Procedures V Robert Gallegos MD 04/19/2015 Procedures V Robert Gallegos MD 02/19/2015 Office visit V Robert Gallegos MD 02/12/2015 Procedures V Robert Gallegos MD 02/05/2015 Procedures V Robert Gallegos MD 01/29/2015 Procedures V Robert Gallegos MD 01/22/2015 Procedures V Robert Gallegos MD 01/15/2015 Office visit V Robert Gallegos MD 01/08/2015 Office visit V Robert Gallegos MD
--- OUTSIDE RECORDS SUMMARY | 2017-04-06 18:19 | XMS REPORT ---
Author Author [facility] Organization [facility] Address [address] [place] [id number] Care Team Providers Care Rigger Apprentice Name Role Phone PCP Unavailable Allergies and Adverse Reactions Name Reaction Notes NO KNOWN DRUG ALLERGIES Plan of Treatment Not available. 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 Results Summary Not available. History Of Immunizations Not available. History of Past Illness Name Date of Onset Comments Cancer of bladder 02/05/2015 Carcinoma of bladder 02/12/2015 Cancer of bladder Jan 15 2015 10:32AM Cancer of bladder Jan 22 2015 12:09PM Recurrent Cancer of bladder Jan 29 2015 2:32PM Recurrent Cancer of bladder Feb 05 2015 2:02PM Recurrent Carcinoma of bladder Feb 12 2015 1:41PM Payers Insurance Name Company Name Plan Name Plan Number Policy Number Policy Group Number Start Date Medicare Part B Medicare Of [place] [id number] N/A [place] /AETNA Medicare Supplement Claims [id number] N /A History of Encounters Visit Date Visit Type Provider 02/12/2015 Procedures V Robert Gallegos MD 02/05/2015 Procedures V Robert Gallegos MD 01/29/2015 Procedures V Robert Gallegos MD 01/22/2015 Procedures V Robert Gallegos MD 01/15/2015 Office visit V Robert Gallegos MD 01/08/2015 Office visit V Robert Gallegos MD
--- OUTSIDE RECORDS SUMMARY | 2017-04-06 18:19 | XMS REPORT ---
Author Author [facility] Organization [facility] Address [address] [place] [phone] Care Team Providers Care Pens And Pencils Repairer Name Role Phone PCP Unavailable Allergies and Adverse Reactions Name Reaction Notes NO KNOWN DRUG ALLERGIES Plan of Treatment Not available. Medications Active Name Start Date Estimated Completion Date SIG Comments hydrocodone-acetaminophen oral tablet 5-325 mg losartan-hydrochlorothiazide oral tablet 50-12.5 mg metoprolol tartrate oral solifenacin oral Problem List Description Status Onset Cancer of bladder Active 01/15/2015 Cancer of bladder Active 02/05/2015 Vital Signs Date Time BP-Sys(mm[Hg] BP-Crys(mm[Hg]) HR(bpm) [...] of Onset Comments Cancer of bladder 02/05/2015 Cancer of bladder Jan 15 2015 10:32AM Cancer of bladder Jan 22 2015 12:09PM Recurrent Cancer of bladder Jan 29 2015 2:32PM Recurrent Cancer of bladder Feb 05 2015 2:02PM Payers Insurance Name Company Name Plan Name Plan Number Policy Number Policy Group Number Start Date Medicare Part B Medicare Of [place] [id number] N/A [place] /AETNA Medicare Supplement Claims [id number] N /A History of Encounters Visit Date Visit Type Provider 02/05/2015 Procedures V Robert Gallegos MD 01/29/2015 Procedures V Robert Gallegos MD 01/22/2015 Procedures Erlin Gallegos MD 01/15/2015 Office visit V Robert Gallegos MD 01/08/2015 Office visit Erlin Gallegos MD
--- OUTSIDE RECORDS SUMMARY | 2017-04-06 18:19 | XMS REPORT ---
Author Author [facility] Organization [facility] Address [address] [place] [phone] Care Team Providers Care Concrete Form Setter Name Role Phone PCP Unavailable Allergies and [...] Active 02/12/2015 Carcinoma of bladder Active 02/20/2015 Vital Signs Date Time BP-Sys(mm[Hg] BP-Crys(mm[Hg]) HR(bpm) [...] Cancer of bladder 02/05/2015 Carcinoma of bladder 02/20/2015 Cancer of bladder Jan 15 2015 10:32AM Cancer of bladder Jan 22 2015 12:09PM Recurrent Cancer of bladder Jan 29 2015 2:32PM Recurrent Cancer of bladder Feb 05 2015 2:02PM Recurrent Carcinoma of bladder Feb 12 2015 1:41PM Recurrent Carcinoma of bladder Feb 20 2015 1:07PM Payers Insurance Name Company Name Plan Name Plan Number Policy Number Policy Group Number Start Date Medicare Part B Medicare Of [place] [id number] N/A [place] /AETNA Medicare Supplement Claims [id number] N /A History of Encounters Visit Date Visit Type Provider 02/19/2015 Office visit V Robert Gallegos MD 02/12/2015 Procedures V Robert Gallegos MD 02/05/2015 Procedures V Robert Gallegos MD 01/29/2015 Procedures V Robert Gallegos MD 01/22/2015 Procedures V Robert Gallegos MD 01/15/2015 Office visit V Robert Gallegos MD 01/08/2015 Office visit V Robetr Gallegos MD
--- OUTSIDE RECORDS SUMMARY | 2017-04-06 18:20 | XMS REPORT | Continuity of Care Document ---
Author Author [facility] Organization [facility] Address Unknown Phone Unavailable Allergies Active Description Code Type Severity Reaction Onset Reported/Identified Relationship to Patient Clinical Status Yes NKANo Known Allergies NKA Miscellaneous Allergy Unknown N/ A 12/07/2006 Yes No Known Drug Allergies [id number] Drug Allergy Unknown N/ A 05/30/2016 Medications Problems Date Dx Coded Attending Type Code Diagnosis Diagnosed By 12/29/2011 Ot 786.2 COUGH 02/15/2013 YENI VENEGAS MD Ot 562.10 DIVERTICULOSIS COLON (W/O MENT OF HEMORR 02/15/2013 YENI VENEGAS MD Ot V12.72 PERSONAL HISTORY OF COLONIC POLYPS 02/15/2013 RUBI GUERERRO, YENI Dsouza Ot V76.51 SCREEN MAL NEOP-COLON 05/03/2015 PRECIOUS GUERRERO, CARLOS Sifuentes Ot 466.0 05/17/2015 Ot 188.9 05/17/2015 YENI VENEGAS MD Ot V72.84 05/17/2015 JUDD GUERRERO, VIOLETA Enamorado Ot 188.9 05/17/2015 JACKELIN LUNA MD Ot V76.12 05/17/2015 CARLOS LANG MD Ot 466.0 05/17/2015 Ot 786.2 05/17/2015 Ot 780.60 06/19/2015 KEYONA CORADO DO Ot V76.12 03/28/2016 Ot 786.2 COUGH 03/28/2016 Ot 780.60 FEVER, UNSPECIFIED 03/28/2016 Ot 188.9 MALIG ANTON BLADDER NOS 03/28/2016 YENI VENEGAS MD Ot V72.84 EXAM PRE-OPERATIVE NOS 03/28/2016 JUDD GUERRERO, VIOLETA Enamorado Ot 188.9 MALIG ANTON BLADDER NOS 03/28/2016 JACKELIN LUNA MD Ot V76.12 OTH SCREEN MAMMO-MALIGN NEOPLASM OF JANINA 03/28/2016 PRECIOUS GUERRERO, CARLOS Sifuentes Ot 466.0 ACUTE BRONCHITIS 03/28/2016 KEYONA CORADO DO Ot V76.12 OTH SCREEN MAMMO-MALIGN NEOPLASM OF JANINA 03/28/2016 Ot 786.2 COUGH 03/28/2016 Ot 780.60 FEVER, UNSPECIFIED 03/28/2016 KEYONA CORADO DO Ot V76.12 OTH SCREEN MAMMO-MALIGN NEOPLASM OF JANINA 04/10/2016 EDITH CORADOP Ot J44.9 CHRONIC OBSTRUCTIVE PULMONARY DISEASE, U 04/16/2016 EDITH CORADOP Ot J44.9 CHRONIC OBSTRUCTIVE PULMONARY DISEASE, U 04/18/2016 KEYONA CORADO DO Ot J44.9 CHRONIC OBSTRUCTIVE PULMONARY DISEASE, U 05/01/2016 EDITH CORADOP Ot J44.9 CHRONIC OBSTRUCTIVE PULMONARY DISEASE, U 05/28/2016 Ot 786.2 COUGH 05/28/2016 RUBI GUERRERO, YENI Dsouza Ot D64.9 ANEMIA, UNSPECIFIED 05/28/2016 RUBI GUERRERO, YENI Dsouza Ot R19.5 OTHER FECAL ABNORMALITIES 05/28/2016 RUBI GUERRERO, YENI Dsouza Ot Z01.818 ENCOUNTER FOR OTHER PREPROCEDURAL EXAMIN 05/29/2016 YENI VENEGAS MD Ot D64.9 ANEMIA, UNSPECIFIED 05/29/2016 YENI VENEGAS MD Ot R19.5 OTHER FECAL ABNORMALITIES 05/29/2016 RUBI GUERRERO, YENI Dsouza Ot Z01.818 ENCOUNTER FOR OTHER PREPROCEDURAL EXAMIN 05/30/2016 Ot 786.2 COUGH 05/30/2016 Ot 780.60 FEVER, UNSPECIFIED 05/30/2016 Ot 188.9 MALIG ANTON BLADDER NOS 05/30/2016 YENI VENEGAS MD Ot V72.84 EXAM PRE-OPERATIVE NOS 05/30/2016 JUDD GUERRERO, VOILETA Enamorado Ot 188.9 MALIG ANTON BLADDER NOS 05/30/2016 CHERYL GUERRERO, JACKELIN June Ot V76.12 OTH SCREEN MAMMO-MALIGN NEOPLASM OF JANINA 05/30/2016 PRECIOUS GUERRERO, CARLOS Sifuentes Ot 466.0 ACUTE BRONCHITIS 05/30/2016 KEYONA CORADO DO Ot V76.12 OTH SCREEN MAMMO-MALIGN NEOPLASM OF JANINA 05/30/2016 EDITH CORADO RACING MECHANIC Ot J44.9 CHRONIC OBSTRUCTIVE PULMONARY DISEASE, U 05/30/2016 KEYONA CORADO DO, Ot J44.9 CHRONIC OBSTRUCTIVE PULMONARY DISEASE, U 05/30/2016 YENI VENEGAS MD Ot D50.9 IRON DEFICIENCY ANEMIA, UNSPECIFIED 05/30/2016 YENI VENEGAS MD Ot K29.71 GASTRITIS, UNSPECIFIED, WITH BLEEDING 05/30/2016 YENI VENEGAS MD Ot K31.819 ANGIODYSPLASIA OF STOMACH AND DUODENUM W 05/30/2016 YENI VENEGAS MD Ot K55.20 ANGIODYSPLASIA OF COLON WITHOUT HEMORRHA 05/30/2016 YENI VENEGAS MD Ot K57.30 DVRTCLOS OF LG INT W/O PERFORATION OR AB 05/30/2016 YENI VENEGAS MD Ot R19.5 OTHER FECAL ABNORMALITIES 06/06/2016 YENI VENEGAS MD Ot D50.9 IRON DEFICIENCY ANEMIA, UNSPECIFIED 06/06/2016 YEIN VENEGAS MD Ot K29.71 GASTRITIS, UNSPECIFIED, WITH BLEEDING 06/06/2016 YENI VENEGAS MD Ot K31.819 ANGIODYSPLASIA OF STOMACH AND DUODENUM W 06/06/2016 YENI VENEGAS MD Ot K55.20 ANGIODYSPLASIA OF COLON WITHOUT HEMORRHA 06/06/2016 YENI VENEGAS MD Ot K57.30 DVRTCLOS OF LG INT W/O PERFORATION OR AB 06/06/2016 YENI VENEGAS MD Ot R19.5 OTHER FECAL ABNORMALITIES Procedures Results Encounters ACCT No. Visit Date/Time Discharge Status Pt. Type Provider Facility Loc./Unit Complaint [id number] 05/30/2016 09:40:00 2015 12:45:00 DIS Outpatient YENI VENEGAS MD [facility] ANEMIA; OCCULT POSITIVE STOOLS [id number] 05/28/2016 05:51:00 2015 14:30:00 DIS Outpatient YENI VENEGAS MD [facility] PREOP ANEMIA; OCCULT POSITIVE STOOLS [id number] 05/17/2015 10:31:00 2014 23:59:59 CLS Outpatient KEYONA CORADO DO [facility] RAD SCREENING [id number] 04/11/2015 11:39:00 2014 23:59:59 CLS Outpatient CARLOS LANG MD [facility] RAD SOB [id number] 10/26/2013 09:42:00 2013 23:59:59 CLS Outpatient JACKELIN LUNA MD [facility] RAD SCREENING [id number] 02/15/2013 08:21:00 2012 23:59:59 CLS Outpatient VIOLETA WHALEY MD [facility] RAD MALIGNANT NEOPLASM OF BLADDER [id number] 02/15/2013 08:12:00 2012 12:25:00 DIS Outpatient YENI VENEGAS MD [facility] SDC HISTORY OF POLYPS [id number] 02/10/2013 07:18:00 2012 23:59:59 CLS Outpatient YENI VENEGAS MD [facility] PREOP HISTORY OF POLYPS [id number] 04/09/2016 09:28:00 ACT Outpatient EDITH CORADO [facility] RT J44.9 [id number] 03/28/2016 10:03:00 ACT Outpatient KEYONA CORADO DO [facility] RAD CHRONIC OBSTRUCTIVE PULM DISEASE [id number] 03/28/2016 10:03:00 Document Registration [id number] 05/17/2015 10:32:00 Document Registration [id number] 05/17/2015 10:32:00 Document Registration [id number] 05/17/2015 10:31:00 Document Registration [id number] 12/30/2011 00:00:00 Document Registration [id number] 09/30/2011 10:51:00 Document Registration
--- OUTSIDE RECORDS SUMMARY | 2017-04-06 18:27 | XMS REPORT | Continuity of Care Document ---
Author Author [facility] Organization [facility] Address Unknown Phone Unavailable Care Team Providers Care Labor Relations Officer Name Role Phone Ian Chavez III PCP [phone] Source Comments Some departments are not documenting in the electronic medical record. 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 Results from Last 3 Months * TELEMETRY STRIPS-SCAN (01/27/2017 12:35 PM) Narrative Ordered by an unspecified provider. * NON-ANESTHESIA ASSISTANT CYTOLOGY (BODY FLUIDS/TISSUE) (01/26/2017 12:23 PM) Only the most recent of 2 results within the time period is included. Component Value Range Cytology [facility] [email or web address] Charissa Sesay MD, Director Cytopathology Department of Pathology and Laboratory Medicine [address] [place] [id number] Office: [phone] CYTOLOGY REPORT NAME: ZAIDA DEJESUS CYTOLOGY #: [id number] MR #: [id number] ALT ID #: BILLING #: [id number] LOCATION: DATE OF PROCEDURE: 01/26/2017 12:23 AGE: [...] with history and clinical findings. Reported using [employer] terminology. ################################################## ###################### * SURGICAL PATHOLOGY (01/26/2017 11:11 AM) Component Value Range PATHOLOGY REPORT [facility] [email or web address] Charissa Sesay MD, PhD, Director of Anatomic Pathology Department of Pathology and Laboratory Medicine [address] [place] [id number] Surgical Pathology Office: [phone] SURGICAL PATHOLOGY REPORT NAME: ZAIDA DEJESUS SURG PATH #: [id number] MR #: [id number] SPECIMEN CLASS: SR BILLING #: [id number] ALT ID #: LOCATION: [facility] DATE OF [...]
--- OUTSIDE RECORDS SUMMARY | 2017-04-06 18:27 | XMS REPORT | Continuity of Care Document ---
Author Author [facility] Organization [facility] Address Unknown Phone Unavailable Allergies Active Description Code Type Severity Reaction Onset Reported/Identified Relationship to Patient Clinical Status Yes NKANo Known Allergies NKA Miscellaneous Allergy Unknown N/ A 12/07/2006 Yes No Known Drug Allergies [id number] Drug Allergy Unknown N/ A 05/30/2016 Medications Problems Date Dx Coded Attending Type Code Diagnosis Diagnosed By 12/29/2011 Ot 786.2 COUGH 02/15/2013 YENI VENEGAS MD Ot 562.10 DIVERTICULOSIS COLON (W/O MENT OF HEMORR 02/15/2013 YENI VENEGAS MD Ot V12.72 PERSONAL HISTORY OF COLONIC POLYPS 02/15/2013 RUBI GUERRERO, YENI Dsouza Ot V76.51 SCREEN MAL NEOP-COLON [...] V72.84 EXAM PRE-OPERATIVE NOS 05/30/2016 JUDD GUERRERO, VIOLETA Enamorado Ot 188.9 MALIG ANTON BLADDER NOS 05/30/2016 CHERYL GUERRERO, JACKELIN June Ot V76.12 OTH SCREEN MAMMO-MALIGN NEOPLASM OF JANINA 05/30/2016 PRECIOUS GUERRERO, CARLOS Sifuentes Ot 466.0 ACUTE BRONCHITIS 05/30/2016 KEYONA CORADO DO Ot V76.12 OTH SCREEN MAMMO-MALIGN NEOPLASM OF JANINA 05/30/2016 EDITH CORADO NURSING HOME DIRECTOR Ot J44.9 CHRONIC OBSTRUCTIVE PULMONARY DISEASE, U [...] Ot D50.9 IRON DEFICIENCY ANEMIA, UNSPECIFIED 06/06/2016 YENI VENEGAS MD Ot K29.71 GASTRITIS, UNSPECIFIED, [...] Status Pt. Type Provider Facility Loc./Unit Complaint [id number] 05/30/2016 09:40:00 2015 12:45:00 DIS Outpatient YENI VENEGAS MD [facility] ANEMIA; OCCULT POSITIVE STOOLS [id number] 05/28/2016 05:51:00 2015 14:30:00 DIS Outpatient YENI VENEGAS MD [facility] PREOP ANEMIA; OCCULT POSITIVE STOOLS [id number] 05/17/2015 10:31:00 2014 23:59:59 CLS Outpatient KEYONA CORADO DO [facility] RAD SCREENING [id number] 04/11/2015 11:39:00 2014 23:59:59 CLS Outpatient CARLOS LANG MD [facility] RAD SOB [id number] 10/26/2013 09:42:00 2013 23:59:59 CLS Outpatient JACKELIN LUNA MD [facility] RAD SCREENING [id number] 02/15/2013 08:21:00 2012 23:59:59 CLS Outpatient VILOETA WHALEY MD [facility] RAD MALIGNANT NEOPLASM OF BLADDER [id number] 02/15/2013 08:12:00 2012 12:25:00 DIS Outpatient YENI VENEGAS MD [facility] SDC HISTORY OF POLYPS [id number] 02/10/2013 07:18:00 2012 23:59:59 CLS Outpatient YENI VENEGAS MD [facility] PREOP HISTORY OF POLYPS [id number] 04/09/2016 09:28:00 ACT Outpatient EDITH CORADO [facility] RT J44.9 [id number] 03/28/2016 10:03:00 ACT Outpatient KEYONA CORADO DO [facility] RAD CHRONIC OBSTRUCTIVE PULM DISEASE [id number] 03/28/2016 10:03:00 Document Registration [id number] 05/17/2015 10:32:00 Document Registration [id number] 05/17/2015 10:32:00 Document Registration [id number] 05/17/2015 10:31:00 Document Registration [id number] 12/30/2011 00:00:00 Document Registration [id number] 09/30/2011 10:51:00 Document Registration
--- NOTE | 2017-04-07 00:11 | OPERATIVE REPORT ---
DATE OF SERVICE: 04/06/2017 PREOPERATIVE DIAGNOSES: 1. Gastrointestinal bleed. 2. Anemia. POSTOPERATIVE DIAGNOSES: 1. Duodenitis. 2. Small antral ulcers. 3. Small hiatal hernia. PROCEDURE: EGD with biopsy. SURGEON: Trace Freeman DO ANESTHESIA: Per MDA. ESTIMATED BLOOD LOSS: None. COMPLICATIONS: None. INDICATIONS: The patient is a 71-year-old female who was found to be anemic with hemoglobin of 6.9. She was transfused. The patient was recommended to have an EGD for further evaluation. She understands the risks and benefits of procedure and wished to proceed with the procedure. Consent was signed in the chart. DESCRIPTION OF PROCEDURE: The patient was taken to the endoscopy suite. Timeout was performed. Scope was inserted in the mouth, down into esophagus, stomach and into the duodenum without difficulty. In the second portion of the duodenum, there are no polyps, mass or ulcerations. The scope continued to slowly track back. In the first portion, there is small amount of duodenitis present. Scope was continuously retracted back. At the pylorus, a small area of erythematous changes that also moved into the antrum, possibly a healing ulcer was present. The scope was continuously retracted back further into the stomach where it was further insufflated noting some small antral ulcers. There is no active bleeding. Biopsy of the antrum and one of the ulcers was obtained. The scope was then retroflexed noting a small hiatal hernia. There is no other pathology noted. The scope was returned to its normal position, slowly withdrawn into the esophagus. There are no polyps, mass or ulcerations within the duodenum. The scope was slowly retracted until completely removed. The patient tolerated the procedure well without any complications. She was taken to the recovery room in stable condition. RECOMMENDATIONS: The patient is to be on Protonix 40 mg b.i.d. and Carafate 1 gram four times a day. We will slowly advance diet starting off with clear liquids. We will continue long-term on Protonix 40 mg daily after 2 to 4 weeks of the twice a day treatment. Job ID: [id number] DocumentID: [id number] Dictated Date: 04/06/2017 14:16:48 Power Supply Engineer Date: 04/06/2017 23:54:04 Dictated By: TRACE FREEMAN DO
== END 2017-04-06 10:10 | disposition home or self-care (01) | DRG 379 ==
LOC: EDUNIT# 08:14 → ER 08:15 → 4TH 10:33 → ENPENDDIS 04-06 16:00
PROVIDERS: ADMIT Internal Medicine; ATTEND Internal Medicine
PROC: 0DB78ZX Excision of Stomach, Pylorus, Via Natural or Artificial Opening Endoscopic, Diagnostic (ICD-10-PCS; principal; 2017-04-06 14:15)
DX: K25.4 Chronic or unspecified gastric ulcer with hemorrhage (principal); D64.9 Anemia, unspecified; K29.80 Duodenitis without bleeding; K44.9 Diaphragmatic hernia without obstruction or gangrene; C67.9 Malignant neoplasm of bladder, unspecified; I10 Essential (primary) hypertension; K21.9 Gastro-esophageal reflux disease without esophagitis; J45.909 Unspecified asthma, uncomplicated; M19.90 Unspecified osteoarthritis, unspecified site; Z96.652 Presence of left artificial knee joint
CPT/HCPCS: 36415; 71020; 80053; 81000; 82728; 83540; 85014; 85018; 85025; 85610; 85730; 86141; 86850; 86900; 86901; 86920; 87088; 96361; 96374

== ENCOUNTER → 2017-06-25 | Outpatient (CLI) | payer MEDICARE, OTHER ==
[~2017-06-25] MED LIST changes: +FERR-74 PO; +HYDR-3812 PO; +PANT40TA2 PO; +SUCR1TAB36 PO
--- NOTE | 2017-06-25 13:46 | Diagnostic Imaging Report ---
PROCEDURE: CT chest, abdomen, and pelvis without contrast. TECHNIQUE: Multiple contiguous axial images were obtained through the chest, abdomen, and pelvis without the use of intravenous contrast. INDICATION: Right groin mass. Lymphadenopathy. FINDINGS: CT chest: In the left lower lobe, there is a 9 mm nodule, image 41. This was not seen on 06/25/2012 exam. The etiology is uncertain. There is mild upper lobe predominant emphysema seen. There is no significant consolidation. There is mild atelectasis or scarring in the left lung base. The heart is normal in size. There is a small pericardial effusion. There is a tiny right pleural effusion. The mediastinum demonstrates no significantly enlarged lymph nodes. No axillary lymphadenopathy is seen. The osseous structures appear grossly unremarkable. CT abdomen and pelvis: The liver demonstrates diffuse fatty infiltration. The gallbladder, the pancreas, and the adrenal glands appear unremarkable. The spleen is at the upper limits of normal. The kidneys demonstrate multiple cystic lesions. There is no hydronephrosis. No urinary tract stones are seen. The urinary bladder demonstrates no focal lesion. It has lobulated contour. There are surgical markers placed around the bladder. Correlate with surgical history. There is evidence of hysterectomy. No bowel obstruction. No significant free fluid or fluid collection in the abdomen or pelvis is seen. There is a 4.1 x 2.8 x 4.6 cm enlarged lymph node in the right inguinal region new when compared to 2012 exam. The osseous structures demonstrate severe degenerative changes in the hip joints and lower lumbar spine. IMPRESSION: CT chest: 1. Indeterminate pulmonary nodule measuring 9 mm in the left lower lobe. This could be neoplastic or sequela of prior inflammation or infection. PET/CT evaluation would be helpful. 2. Small pericardial effusion. CT abdomen and pelvis: A 4.6 cm lymph nodes mass in the right inguinal lesion. This is concerning for neoplastic etiology. Evaluation with ultrasound-guided biopsy is suggested. Report faxed to Dr. Francisco at 1:46 p.m. 06/25/2017/jayleen Dictated by: Dictated on workstation # [id number]
== END ==
LOC: RAD 12:03
PROVIDERS: ATTEND Family Medicine
DX: R91.1 Solitary pulmonary nodule (principal); J90 Pleural effusion, not elsewhere classified; R59.0 Localized enlarged lymph nodes
CPT/HCPCS: 71250; 74176

== ENCOUNTER → 2017-07-01 | Outpatient (CLI) | payer MEDICARE, OTHER ==
[~2017-07-01] VITALS: Ht 177.8 cm; Wt 95.3 kg
[~2017-07-01] MED LIST changes: +HYDR-3816 PO; +LIDOCAINE 1% INJ 20 ML (XYLOCAINE) VIAL INJ ONE; +LIDOCAINE 1% INJ 20 ML (XYLOCAINE) VIAL ONE; +LOSA1TAB23 PO; -LOSA1TAB70 PO; +METO-370 PO; +RIVA20TA PO
[2017-07-01 08:35] VITALS: BP 124/69
[2017-07-01 09:08] VITALS: BP 125/71
--- NOTE | 2017-07-01 09:28 | Diagnostic Imaging Report ---
EXAMINATION: US-guided core biopsy-right groin mass. INDICATION: Right groin mass. Current history and physical and other medical records are reviewed prior to the procedure. CONSENT: Informed consent was obtained from the patient. The risks, benefits, potential complications and alternatives were reviewed and all questions answered to the patient's satisfaction. The patient's vital signs, cardiac rhythm, and pulse oximetry with observed throughout the procedure by qualified nursing personnel. Sedation/medications: none. FINDINGS: Right groin lymph node mass. PROCEDURE: After maximal sterile barrier technique preparation and draping, 1% lidocaine was utilized for local anesthesia. With the patient in supine position, and via anterior approach, a 17-gauge guide needle is introduced into the right inguinal mass under live ultrasound guidance. After confirming adequate positioning with saved ultrasound images, multiple 18 gauge core biopsy specimens were obtained. The patient tolerated the procedure well with no immediate complications. IMPRESSION: Successful US-guided core biopsy of right inguinal mass. Dictated by: Dictated on workstation # [id number]
== END ==
LOC: RAD 08:13
PROVIDERS: ATTEND Family Medicine
DX: R19.09 Other intra-abdominal and pelvic swelling, mass and lump; Z85.51 Personal history of malignant neoplasm of bladder
CPT/HCPCS: 76942; 88305; 88341; 88342

== ENCOUNTER 2017-08-25 11:24 | Outpatient (CLI) | payer MEDICARE, OTHER ==
[~2017-08-25] VITALS: Ht 177.8 cm; Wt 91.2 kg
[~2017-08-25 11:24] MED LIST changes: -HYDR-3816 PO; -LIDOCAINE 1% INJ 20 ML (XYLOCAINE) VIAL INJ ONE; -LIDOCAINE 1% INJ 20 ML (XYLOCAINE) VIAL ONE; -LOSA1TAB23 PO; +LOSA1TAB70 PO; -METO-370 PO; -RIVA20TA PO
[2017-08-25] MEDS ORDERED: RIVA20TA PO (11:33)
[2017-08-25] MEDS ORDERED: METO-370 PO (11:33)
== END 2017-08-25 11:48 ==
LOC: PREOP 11:24
PROVIDERS: ATTEND Surgery
DX: Z01.818 Encounter for other preprocedural examination (principal); C67.9 Malignant neoplasm of bladder, unspecified

== ENCOUNTER 2017-08-27 10:03 | Day surgery (SDC) | payer MEDICARE, OTHER ==
[~2017-08-27] VITALS: Ht 177.8 cm; Wt 91.2 kg
[~2017-08-27 10:03] MED LIST changes: +METO-370 PO; +RIVA20TA PO
--- OUTSIDE RECORDS SUMMARY | 2017-08-27 10:08 | XMS REPORT | Continuity of Care Document ---
Author Author [employer] Organization [facility] Address Unknown Phone Unavailable Care Team Providers Care Clinic [facility] Name Role Phone [employer] Unavailable Unavailable Problems Medications Allergies, Adverse Reactions, Alerts Immunizations Results Vital Signs Encounters Location Location Details Encounter Type Encounter Number Reason For Visit Attending Provider ADM Date DC Date Status Source SPECIMEN [id number] TRUONG WHITMORE 07/17/2017 07/17/2017 Active [facility] OP SURGERY [id number] OPAL METCALF Active [facility] O TRUONG WHITMORE Active [facility] Procedures Plan of Care Social History Assessment and Plan Family History Value Date Source Advance Directives Order Name Results Value Date Source
--- OUTSIDE RECORDS SUMMARY | 2017-08-27 10:09 | XMS REPORT | Encounter Summary ---
Author Author [facility] Organization [facility] Address Unknown Phone Unavailable Care Team Providers Care Early Childhood Associate Name Role Phone PCP Unavailable Reason for Referral * Radiology Services Status Reason Specialty Diagnoses / Referred By Referred To Procedures Contact Contact New Request Radiology Diagnoses Bradley Guan MD Malignant [address] urinary bladder, [place] [address] unspecified site [place], [place] ([facility]) [address] P Phone: Med[employer] [phone] CT CHEST W Fax: CONTRAST [phone] * Radiology Services Status Reason Specialty Diagnoses / Referred By Referred To Procedures Contact Contact New Request Radiology Diagnoses Di Bobby MD neoplasm of [address] urinary bladder, Blvd unspecified site [place] [address] (HCC) [place], [place] P [address] rocedures Phone: CT ABD/PELV W [phone] CONTRAST Encounter Details Date Type Department Care Team Description 08/24/2017 Orders Only [facility] Bradley Guan MD Malignant neoplasm of Physicians - Urology [address] urinary bladder, 2ND FLOOR POD A [place] [address] unspecified site ([facility]) [address] [place] [address] OFFICE BLDG [phone] [place] [address] Social History Tobacco Use Types Packs/Day Years Used Date Current Every Day Smoker Cigarettes 1 50 Smokeless Tobacco: Never Used Alcohol Use Drinks/Week oz/Week Comments No 0 Standard 0.0 drinks or equivalent Sex Assigned at Date Recorded Not on file as of this encounter Plan of Treatment Not on fileas of this encounter Results * CT CHEST W CONTRAST (08/11/2017) Specimen Performing Laboratory [facility] in this encounter Visit Diagnoses Diagnosis Malignant neoplasm of urinary bladder, unspecified site (HCC) in this encounter
--- OUTSIDE RECORDS SUMMARY | 2017-08-27 10:09 | XMS REPORT | Encounter Summary ---
Author Author [facility] Organization [facility] Address Unknown Phone Unavailable Care Team Providers Care Hotel General Manager Name Role Phone PCP Unavailable Reason for Referral * Consult, Test & Treat Status Reason Specialty Diagnoses / Referred By Referred To Procedures Contact Contact New Request Specialty Oncology Diagnoses Bradley Guan MD Cc - Ww Cl Services Malignant [address] Exm/Proc Rm Required neoplasm of bl[address] urinary bladder, [place] [address] unspecified site [place], [place] ([facility]) [phone] Phone: Fax: * Radiology Services Status Reason Specialty Diagnoses / Referred By Referred To Procedures Contact Contact New Request Radiology Diagnoses Bradley Guan MD Malignant [address] urinary bladder, [place] [address] unspecified site [place], [place] ([facility]) [address] P Phone: [employer] [phone] CT ABD/PELV W Fax: CONTRAST [phone] * Radiology Services Status Reason Specialty Diagnoses / Referred By Referred To Procedures Contact Contact New Request Radiology Diagnoses Bradley Guan MD Malignant [address] urinary bladder, [place] [address] unspecified site [place], [place] ([facility]) [address] P Phone: [employer] [phone] CT CHEST W Fax: CONTRAST [phone] Encounter Details Date Type Department Care Team Description 08/10/2017 Orders Only [facility] Bradley Guan MD Malignant neoplasm of Physicians - Urology [address] urinary bladder, 2ND FLOOR POD A [place] [address] unspecified site ([facility]) [address] [place] [address] (Primary Dx) OFFICE [facility] [phone] [place] [address] Social History Tobacco Use Types Packs/Day Years Used Date Current Every Day Smoker Cigarettes 1 50 Smokeless Tobacco: Never Used Alcohol Use Drinks/Week oz/Week Comments No 0 Standard 0.0 drinks or equivalent Sex Assigned at Date Recorded Not on file as of this encounter Plan of Treatment Name Priority Associated Diagnoses Order Schedule CT ABD/PELV W CONTRAST Routine Malignant neoplasm of Expected: 2016 urinary bladder, (Approximate), Expires: unspecified site (HCC) 08/10/2018 Name Priority Associated Diagnoses Order Schedule AMB REFERRAL TO ONCOLOGY Routine Malignant neoplasm of Ordered: 2016 urinary bladder, unspecified site (HCC) as of this encounter Results * CT CHEST W CONTRAST (08/11/2017) Specimen Performing Laboratory [facility] in this encounter Visit Diagnoses Diagnosis Malignant neoplasm of urinary bladder, unspecified site (HCC) - Primary in this encounter
--- OUTSIDE RECORDS SUMMARY | 2017-08-27 10:09 | XMS REPORT | Clinical Summary ---
Author Author [facility] Organization [facility] Address Unknown Phone Unavailable Care Team Providers Care Research Program Manager Name Role Phone PCP Unavailable Source Comments Some departments are not documenting in the electronic medical record. If you do not see the information that you expected, contact Release of Information in the Health Information Management department at [phone] for further assistance in locating additional records.[facility] Allergies No Known Allergies Current Medications Prescription Sig. [...] hour before or 2 hours after food. HYDROcodone/acetaminophen Take 1 Tab by mouth every 15 Tab 0 01/27/20 Active (NORCO) 5/325 mg tablet 6 hours as needed for 17 Pain polyethylene glycol 3350 Take 1 packet by mouth 12 each 3 07/28/20 Active (MIRALAX) 17 g twice daily. Indications: 17 packetIndications: CONSTIPATION CONSTIPATION senna/docusate Take 1 tablet by mouth 15 tablet 0 07/28/20 Active (SENOKOT-S) 8.6/50 mg twice daily. Indications: 17 tabletIndications: CONSTIPATION CONSTIPATION ciprofloxacin (CIPRO) 500 Take 1 tablet by mouth 6 tablet 0 07/28/20 Active mg tablet twice daily. 17 apixaban (ELIQUIS) 5 mg Take 1 tablet by mouth 60 tablet 0 07/28/20 Active tabletIndications: twice daily. 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 I reviewed that bladder cancer metastatic to the inguinal nodes is an unusual finding given previous negative cystoscopy and TURBTs. We reviewed possibility of urothelial cancer in the urethra. I reviewed EUA, cystoscopy, possible TURBT or urethral tumor. We will also perform exicisional biopsy of inguinal node/ Encounters Date Type Specialty Care Team Description 08/24/2017 Orders Only Urology Truong Guan MD Malignant neoplasm of urinary bladder, unspecified site (HCC) 08/19/2017 Documentation Oncology Nigel Mills, RN 08/10/2017 Orders Only Urology Truong Guan MD Malignant neoplasm of urinary bladder, unspecified site (HCC) (Primary Dx) 08/07/2017 Orders Only Urology Truong Guan MD Malignant neoplasm of urinary bladder, unspecified site (HCC) (Primary Dx) 07/27/2017 Hospital Truong Guan MD Malignant neoplasm of - Encounter overlapping sites of 07/28/2017 bladder (HCC) 07/27/2017 Procedure Pass 07/27/2017 Surgery Truong Guan MD CYSTOSCOPY 07/26/2017 Anesthesia Juan Luis Thomson MD Event 07/23/2017 Prep for Case Truong Guan MD 07/17/2017 [facility] Truong Guan MD Malignant neoplasm of Encounter bladder, unspecified (HCC) 07/17/2017 Office Visit Urology Truong Guan MD Malignant neoplasm of overlapping sites of bladder (HCC) 07/10/2017 Ancillary Radiology Outpatient, Radiologist Diagnosis unknown Orders 07/01/2017 Hospital Radiology Encounter 06/25/2017 Hospital Radiology Encounter from Last 3 Months Social History Tobacco Use Types Packs/Day Years Used Date Current Every Day Smoker Cigarettes 1 50 Smokeless Tobacco: Never Used Alcohol Use Drinks/Week oz/Week Comments No 0 Standard 0.0 drinks or equivalent Sex Assigned at Date Recorded Not on file Last Filed Vital Signs Vital Sign Reading Time Taken Blood Pressure 140/64 07/28/2017 7:31 AM CDT Pulse 82 07/28/2017 7:31 AM CDT Temperature 36.3 C (97.4 F) 07/28/2017 7:31 AM CDT Respiratory Rate 14 12/02/2013 10:17 AM PHYSICIAN ANESTHESIOLOGIST Oxygen Saturation 93% 07/28/2017 7:31 AM CDT Inhaled Oxygen - - Concentration Weight 92.4 kg (203 lb 12.8 oz) 07/27/2017 10:51 PM CDT Height 177.8 cm (5' 10") 07/27/2017 10:51 PM CDT Body Mass Index 29.24 07/27/2017 10:51 PM CDT Plan of Treatment Health Maintenance Due Date Last Done Comments HEPATITIS C SCREENING 1945 PHYSICAL (COMPREHENSIVE) 1952 EXAM PERTUSSIS VACCINE 1956 TETANUS VACCINE 1962 BREAST CANCER SCREENING 1985 COLORECTAL CANCER 1995 SCREENING SHINGLES VACCINE 2005 OSTEOPOROSIS SCREENING 2010 PREVNAR/PNEUMOVAX (#1) 2010 INFLUENZA VACCINE 05/12/2017 Procedures Procedure Name Priority Date/Time Associated Diagnosis Comments ECG-SCAN 08/05/2017 Results for this 7:58 AM CDT procedure are in the results section. ECG-SCAN 08/05/2017 Results for this 7:58 AM CDT procedure are in the results section. ECG-SCAN 08/05/2017 Results for this 7:58 AM CDT procedure are in the results section. ECG-SCAN 08/05/2017 Results for this 7:58 AM CDT procedure are in the results section. ECG-SCAN 08/05/2017 Results for this 7:58 AM CDT procedure are in the results section. ECG-SCAN 08/05/2017 Results for this 7:58 AM CDT procedure are in the results section. ECG-SCAN 08/05/2017 Results for this 7:58 AM CDT procedure are in the results section. ECG-SCAN 08/05/2017 Results for this 7:58 AM CDT procedure are in the results section. ECG-SCAN 08/05/2017 Results for this 7:58 AM CDT procedure are in the results section. ECG-SCAN 08/05/2017 Results for this 7:58 AM CDT procedure are in the results section. ECG-SCAN 08/05/2017 Results for this 7:58 AM CDT procedure are in the results section. ECG-SCAN 07/28/2017 Results for this 9:40 PM CDT procedure are in the results section. ECG-SCAN 07/27/2017 Results for this 10:30 PM CDT procedure are in the results section. EXCISION OF RIGHT 07/27/2017 Malignant neoplasm of INGUINAL NODE 12:40 PM CDT overlapping sites of bladder (HCC) Special Needs CYSTOSCOPY 07/27/2017 Malignant neoplasm of 12:40 PM CDT overlapping sites of bladder (HCC) Special Needs from Last 3 Months Results * CT CHEST W CONTRAST (08/11/2017) Specimen Performing Laboratory [facility] * ECG-SCAN (08/05/2017 7:58 AM) Narrative Ordered by an unspecified provider. * ECG-SCAN (08/05/2017 7:58 AM) Narrative Ordered by an unspecified provider. * ECG-SCAN (08/05/2017 7:58 AM) Narrative Ordered by an unspecified provider. * ECG-SCAN (08/05/2017 7:58 AM) Narrative Ordered by an unspecified provider. * ECG-SCAN (08/05/2017 7:58 AM) Narrative Ordered by an unspecified provider. * ECG-SCAN (08/05/2017 7:58 AM) Narrative Ordered by an unspecified provider. * ECG-SCAN (08/05/2017 7:58 AM) Narrative Ordered by an unspecified provider. * ECG-SCAN (08/05/2017 7:58 AM) Narrative Ordered by an unspecified provider. * ECG-SCAN (08/05/2017 7:58 AM) Narrative Ordered by an unspecified provider. * ECG-SCAN (08/05/2017 7:58 AM) Narrative Ordered by an unspecified provider. * ECG-SCAN (08/05/2017 7:58 AM) Narrative Ordered by an unspecified provider. * ECG-SCAN (07/28/2017 9:40 PM) Narrative Ordered by an unspecified provider. * CBC (07/28/2017 5:21 AM) Component Value Ref Range White Blood Cells 8.8 4.5 - 11.0 K/UL RBC 5.82 (H) 4.0 - 5.0 M/UL Hemoglobin 14.2 12.0 - 15.0 GM/DL Hematocrit 43.7 36 - 45 % MCV 75.2 (L) 80 - 100 FL MCH 24.4 (L) 26 - 34 PG MCHC 32.4 32.0 - 36.0 G/DL RDW 19.0 (H) 11 - 15 % Platelet Count 213 150 - 400 K/UL MPV 7.7 7 - 11 FL Specimen Performing Laboratory [facility] [address] [place] [address] * BASIC METABOLIC PANEL (07/28/2017 5:21 AM) Component Value Ref Range Sodium 136 (L) 137 - 147 MMOL/L Potassium 4.3Comment: SLT HEMOLYSIS 3.5 - 5.1 MMOL/L Chloride 104 98 - 110 MMOL/L CO2 25 21 - 30 MMOL/L Anion Gap 7 3 - 12 Glucose 124 (H) 70 - 100 MG/DL Blood Urea Nitrogen 17 7 - 25 MG/DL Creatinine 0.76 0.4 - 1.00 MG/DL Calcium 9.4 8.5 - 10.6 MG/DL eGFR Non >60 >60 mL/min Comment: The eGFR is not validated for use in drug dosing adjustments. Continue to use estimated creatinine clearance per dosing reference text. Please contact the Clinical Pharmacist for questions. eGFR >60 >60 mL/min Comment: The eGFR is not validated for use in drug dosing adjustments. Continue to use estimated creatinine clearance per dosing reference text. Please contact the Clinical Pharmacist for questions. Specimen Performing Laboratory [facility] [address] [place] [id number] * ECG-SCAN (07/27/2017 10:30 PM) Narrative Ordered by an unspecified provider. * SURGICAL PATHOLOGY (07/27/2017 6:08 AM) Component Value Ref Range PATHOLOGY REPORT [facility] [email or web address] Charissa Sesay MD, PhD, Director of Anatomic Pathology Department of Pathology and Laboratory Medicine [address] [place] [phone] Surgical Pathology Office: [phone] SURGICAL PATHOLOGY REPORT NAME: ZAIDA DEJESUS SURG PATH #: [id number] MR #: [id number] SPECIMEN CLASS: SR BILLING #: [id number] ALT ID #: LOCATION: [id number] DATE OF PROCEDURE: 07/27/2017 AGE: 71 SEX: F DATE RECEIVED: 07/28/2017 : 1945 TIME RECEIVED: 06:08 PHYSICIAN: TRUONG GUAN DATE OF REPORT: 07/30/2017 COPY TO: DATE OF PRINTIN07/30/2017 ################################################## ###################### Final Diagnosis: A. 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 Comment: Immunohistochemical stains show the tumor cells are positive for CK7, CK20, GATA3 & p63 supporting the above diagnosis. Attestation: By this signature, I attest that I have personally formulated the final interpretation expressed in this report and that the above diagnosis is based upon my examination of the slides and/or other material indicated in this report. 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 She then presented with an enlarged inguinal lymph node that was biopsied at an outside institution (pathology: metastatic carcinoma consistent with urinary bladder) and now presents for excision. Gross Description: A. Received in formalin labeled "right inguinal lymph node" is a 7.7 x 3.5 x 2.6 cm pink-evans possible lymph node. The specimen is serially sectioned to reveal a white-evans cut surface grossly involved with tumor. Administrative Support Specialist sections of the specimen are submitted in cassettes A1 and A2. (nc) nc/07/28/2017 If immunohistochemical stains and/or in situ hybridization are cited in this report, the performance characteristics were determined by the Department of Pathology and Laboratory Medicine of the [facility] ([employer]) in compliance with CLIA'88 regulations. Some of these tests rely on the use of "analyte specific reagents" and are subject to specific labeling requirements by the FDA. Known positive and negative control tissues demonstrate appropriate staining. Results should be interpreted with caution given the likelihood of false negativity on decalcified specimens. This testing was developed by the Department of Pathology and Laboratory Medicine of the [facility]. It has not been cleared or approved by the FDA. The FDA has determined that such clearance or approval is not necessary. Specimen Performing Laboratory [facility] * OUTSIDE PATHOLOGY CONSULT (07/17/2017 4:22 PM) Component Value Ref Range PATHOLOGY REPORT [facility] [email or web address] Charissa Sesay MD, PhD, Director of Anatomic Pathology Department of Pathology and Laboratory Medicine [address] [place] [phone] Surgical Pathology Office: [phone] PATHOLOGY CONSULTATION NAME: ZAIDA DEJESUS SURG PATH #: [id number] MR #: [id number] ALT ID #: LOCATION: UROL DATE OF PROCEDURE: 07/17/2017 AGE: 71 SEX: F DATE RECEIVED: 07/17/2017 : 1945 TIME RECEIVED: 16:22 PHYSICIAN: TRUONG GUAN DATE OF REPORT: 07/20/2017 COPY TO: DATE OF PRINTIN07/20/2017 ################################################## ###################### Final Diagnosis: A. Outside case [id number] (Date Collected: 07/01/2017) Soft tissue, "lymph node, right inguinal", needle biopsy: Poorly differentiated carcinoma consistent with metastasis from urinary bladder carcinoma. Comment: Submitted immunohistochemical stains for SYED and p63 support the above diagnosis. Attestation: By this signature, I attest that I have personally formulated the final interpretation expressed in this report and that the above diagnosis is based upon my examination of the slides and/or other material indicated in this report. +++ +++ paj/07/17/2017 ################################################## ###################### Material Received: A: Outside Slides x3 [id number], [facility], Attn: Technical Secretaries, [address] [place] [address] History: 71-year-old female with a clinical history of bladder cancer. Gross Description: A. Received are three (3) outside slides labeled "[id number]", and a properly identified surgical pathology report from [facility], Attn: Technical Secretaries, [address] [place] [address]. ; . pa/07/17/2017 If immunohistochemical stains and/or in situ hybridization are cited in this report, the performance characteristics were determined by the Department of Pathology and Laboratory Medicine of the [facility] ([employer]) in compliance with CLIA'88 regulations. Some of these tests rely on the use of "analyte specific reagents" and are subject to specific labeling requirements by the FDA. Known positive and negative control tissues demonstrate appropriate staining. Results should be interpreted with caution given the likelihood of false negativity on decalcified specimens. This testing was developed by the Department of Pathology and Laboratory Medicine of the [facility]. It has not been cleared or approved by the FDA. The FDA has determined that such clearance or approval is not necessary. Specimen Performing Laboratory [facility] * [facility] EXTERNAL IMAGING (07/01/2017) Narrative This order has been auto finalized and does not contain a result. * CT CHEST/ABD/PEL EXTERNAL IMAGING (06/25/2017) Narrative This order has been auto finalized and does not contain a result. from Last 3 Months
--- OUTSIDE RECORDS SUMMARY | 2017-08-27 10:09 | XMS REPORT | Encounter Summary ---
Author Author [facility] Organization [facility] Address Unknown Phone Unavailable Care Team Providers Care Charge Entry Name Role Phone PCP Unavailable Encounter Details Date Type Department Care Team Description 08/19/2017 Documentation [facility] Nigel Mills RN [facility] Exam [address] [place] [address] [place] [address] [phone] Social History Tobacco Use Types Packs/Day Years Used Date Current Every Day Smoker Cigarettes 1 50 Smokeless Tobacco: Never Used Alcohol Use Drinks/Week oz/Week Comments No 0 Standard 0.0 drinks or equivalent Sex Assigned at Date Recorded Not on file as of this encounter Progress Notes * Nigel Mills RN - 08/19/2017 10:11 AM DENTAL MOLD MAKER Received referral from Dr. Guan for patient to be seen by [facility]. I spoke with patient she has decided to get treatment closer to home with Dr. Schmidt in [place], [place] which is only 20 miles from her home. in this encounter Plan of Treatment Not on fileas of this encounter Visit Diagnoses Not on filein this encounter
--- OUTSIDE RECORDS SUMMARY | 2017-08-27 10:12 | XMS REPORT | Encounter Summary ---
Author Author [facility] Organization [facility] Address Unknown Phone Unavailable Care Team Providers Care Site Engineer Name Role Phone PCP Unavailable Reason for Referral * Radiology Services Status Reason Specialty Diagnoses / Referred By Referred To Procedures Contact Contact New Request Radiology Diagnoses Di Bobby MD neoplasm of [address] urinary bladder, Blvd unspecified site [place] [address] (HCC) [place], [place] [address] rocedures Phone: CT CHEST W [phone] CONTRAST * Radiology Services Status Reason Specialty Diagnoses / Referred By Referred To Procedures Contact Contact New Request Radiology Diagnoses Di Bobby MD neoplasm of [address] urinary bladder, Blvd unspecified site [place] [address] (HCC) [place], [place] [address] rocedures Phone: CT ABD/PELV W [phone] CONTRAST Encounter Details Date Type Department Care Team Description 08/07/2017 Orders Only [facility] Bradley Guan MD Malignant neoplasm of Physicians - Urology [address] urinary bladder, 2ND FLOOR POD A [address] unspecified site ([facility]) [address] [place] [address] (Primary Dx) OFFICE BLDG [phone] [place] [address] Social History Tobacco Use Types [...] urinary bladder, (Approximate), Expires: unspecified site (HCC) 08/07/2018 CT CHEST W CONTRAST Routine Malignant neoplasm of Expected: 08/07/2017 urinary bladder, (Approximate), Expires: unspecified site (HCC) 08/07/2018 as of this encounter Visit Diagnoses Diagnosis Malignant neoplasm of urinary bladder, unspecified site (HCC) - Primary in this encounter
--- OUTSIDE RECORDS SUMMARY | 2017-08-27 10:13 | XMS REPORT | Encounter Summary ---
Author Author [facility] Organization [facility] Address Unknown Phone Unavailable Care Team Providers Care Engineering Design Supervisor Name Role Phone PCP Unavailable Reason for Visit * Auth/Cert Status Reason Specialty Diagnoses / Referred By Referred To Procedures Contact Contact Diagnoses Malignant neoplasm of overlapping sites of bladder (HCC) UNKNOWN P rocedures NV CYSTO W/REMOVAL OF TUMORS SMALL NV BIOPSY/EXCISION, LYMPH NODE(S) CYSTOSCOPY WITH TRANSURETHRAL RESECTION LESION BLADDER; Encounter Details Date Type Department Care Team Description 07/27/2017 Anesthesia Main Operating Room Juan Luis Thomson MD [address] [facility] [address] [place] [address] Social History Tobacco Use Types Packs/Day Years Used Date Current Every Day Smoker Cigarettes 1 50 Smokeless Tobacco: Never Used Alcohol Use Drinks/Week oz/Week Comments No 0 Standard 0.0 drinks or equivalent Sex Assigned at Date Recorded Not on file as of this encounter OR Notes * Anesthesia Postprocedure Evaluation - Jaime Cobian MD - 07/27/2017 9: 53 PM CDT Post-Anesthesia Evaluation Name: Zaida Dejesus : 1945 Age: 71 y.o. Sex: female Procedure Date: 07/27/2017 Procedure: Procedure(s) with comments: CYSTOSCOPY - CASE LENGTH 1 HOUR EXCISION OF RIGHT INGUINAL NODE Surgeon: Surgeon(s): MD Michael Irving MD Post-Anesthesia Vitals BP: 149/50 (07/27 2145) Temp: 36.6 C (97.9 F) (07/27 2103) Pulse: 97 (07/27 2145) Respirations: 17 PER MINUTE (07/27 2145) SpO2: 97 % (07/27 2145) O2 Delivery: Nasal Cannula (07/27 2145) SpO2 Pulse: 94 (07/27 2145) Height: 177.8 cm (70") (07/27 1117) Post Anesthesia Evaluation Note Evaluation location: Pre/Post Patient participation: recovered; patient participated in evaluation Level of consciousness: alert Pain score: 1 Pain management: adequate Hydration: normovolemia Temperature: 36.0C - 38.4C Airway patency: adequate Perioperative Events Perioperative events: no Post-op nausea and vomiting: no PONV Postoperative Status Cardiovascular status: hemodynamically stable (Patient is in a-fib. She has been assessed by cardiology) Respiratory status: spontaneous ventilation Follow-up needed: none Perioperative Events Perioperative Event: No Emergency Case Activation: No Associated attestation - Warner Corral MD - 07/28/2017 6:39 AM CDT Formatting of this note may be different from the original. ATTESTATION Post-Anesthesia Evaluation Attestation: I reviewed and agree the indicated post- anethesia care was provided. Staff name: Warner Corral MD Date: 07/28/2017 * Anesthesia Preprocedure Evaluation - Antonia Caballero MD - 07/27/2017 11:21 AM CDT Formatting of this note may be different from the original. Anesthesia Pre-Procedure Evaluation Name: Zaida Dejesus : 1945 Age: 71 y.o. Sex: female Procedure Date: 07/27/2017 Procedure: Procedure(s) with comments: CYSTOSCOPY WITH TRANSURETHRAL RESECTION LESION BLADDER - CASE LENGTH 1 HOUR EXCISIONAL BIOPSY OF RIGHT INGUINAL NODE Physical Assessment Vital Signs (last filed in past 24 hours): BP: 143/82 (07/27 1117) Temp: 36.4 C (97.5 F) (07/27 1117) Pulse: 85 (07/27 1117) Respirations: 18 PER MINUTE (07/27 1117) SpO2: 95 % (07/27 1117) O2 Delivery: None (Room Air) (07/27 1117) Height: 177.8 cm (70") (07/27 1117) Weight: 91.5 kg (201 lb 11.5 oz) (07/27 1117) Patient History No Known Allergies Current Medications Medication Directions calcium carbonate (OS-DANNIE) 1250 mg tablet Take 1,250 mg by mouth daily. ferrous sulfate (FEOSOL, FEROSUL) 325 mg (65 mg iron) tablet Take 325 mg by mouth daily. Take on an empty stomach at least 1 hour before or 2 hours after food. HYDROcodone/acetaminophen (NORCO) 5/325 mg tablet Take 1 Tab by mouth every 6 hours as needed for Pain losartan/hydrochlorothiazide (HYZAAR) 50/12.5 mg tablet Take by mouth daily. metoprolol XL (TOPROL XL) 50 mg tablet Take 50 mg by mouth daily. solifenacin(+) (VESICARE) 10 mg tablet Take 10 mg by mouth daily. Review of Systems/Medical History Patient summary reviewed Nursing notes reviewed Pertinent labs reviewed PONV Screening: Female gender and Postoperative opioids No history of anesthetic complications Airway - negative Pulmonary Current smoker Cardiovascular Exercise tolerance: >4 METS Beta Demarco therapy: Yes Beta blockers within 24 hours: Yes Hypertension, Dysrhythmias; atrial fibrillation GI/Hepatic/Renal Cirrhosis Neuro/Psych - negative Musculoskeletal Arthritis Endocrine/Other Malignancy (Bladder Cancer) Physical Exam Airway Findings Mallampati: III TM distance: >3 FB Neck ROM: full Mouth opening: good Dental Findings: Cardiovascular Findings: Rhythm: irregular Rate: normal Pulmonary Findings: Breath sounds clear to auscultation. Decreased breath sounds. No wheezes. 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 Use of blood products discussed with patient; consented to blood products. Plan discussed with: anesthesiologist and resident. ADDENDUM Patient arrived for surgery with atrial fibrillation without prior history. She is asymptomatic and hemodynamically stable. An ECG was obtained and confirmed diagnosis. This information was discussed with Dr. Guan and he agrees that procedure should be postponed until this is worked up. Antonia Caballero MD 07/27/17 11:21 AM Cardiology consult obtained while patient was in-house. Cardiology recommends continuing rate control with beta demarco perioperatively for today's scheduled procedure. Post operatively, she should start anticoagulation with Eliquis for primary prevention of stroke as soon as safe from surgical perspective, which will be advised by the surgical team. Ms. Dejesus's intends to see a railroad track inspector tomorrow or as soon as possible. Antonia Caballero MD 07/27/17 2:07 PM in this encounter Plan of Treatment Not on fileas of this encounter Visit Diagnoses Not on filein this encounter Administered Medications Medication Order MAR Action Action Date Dose Rate Site acetaminophen (OFIRMEV) 1,000 mg Given 07/27/2017 1,000 mg injection 100 mL 19:48 CDT 1,000 mg, Intravenous, 100 mL, Administer over 15 Minutes, ONCE, 1 dose, 07/27/17 at 1915 ceFAZolin (ANCEF) IVP 2 g Given 07/27/2017 2 g 2 g, Intravenous, ONCE, 1 dose, Mon 19:09 CDT 07/27/17 at 1100, Give Pre-Op < 60 minutes prior to first incision. (Given in OR). IV PUSH -- RECONSTITUTE each 1 g vial by adding 10 mL 0.9% NACL dexamethasone (DECADRON) injection Given 07/27/2017 4 mg Intravenous, INTRA-PROCEDURE MED, 19:08 CDT Starting 07/27/17 at 1908, Until Thu07/29/17 at 1307, Nausea/Vomiting Injectable, Anesthesia Intra-op dextran 70/hypromellose (NATURAL BALANCE Given 07/27/2017 2 drops TEARS) 0.1/0.3 % ophthalmic solution 19:04 CDT INTRA-PROCEDURE MED, Starting Thu07/27/17 at 1904, Until Thu07/29/17 at 1307, Dry Eyes, Irritated Eyes, Anesthesia Intra-op ePHEDrine 50 mg/mL 50 mg in sodium Given - New 07/27/2017 5 mg chloride PF 0.9% 5 mL IV syringe Bag 19:31 CDT 5 mL, INTRA-PROCEDURE MED(CONT), Starting Thu07/27/17 at 1936, Until Thu07/29/17 at 1307, Anesthesia Intra-op Given - New Bag 07/27/2017 10 mg 19:36 CDT famotidine (PEPCID) injection Given 07/27/2017 20 mg INTRA-PROCEDURE MED, Starting Mon 19:08 CDT 07/27/17 at 1908, Until Thu07/29/17 at 1307, Indigestion/Heartburn, Anesthesia Intra-op fentaNYL citrate PF (SUBLIMAZE) Given 07/27/2017 50 mcg injection 18:57 CDT INTRA-PROCEDURE MED, Starting Thu07/27/17 at 1857, Until Thu07/29/17 at 1307, Pain Injectable, Anesthesia Intra-op Given 07/27/2017 50 mcg 19:00 CDT Given 07/27/2017 50 mcg 20:33 CDT lactated ringers infusion Given - New 07/27/2017 1,000 mL 20 mL/hr 1,000 mL, 1,000 mL, Intravenous, at 20 Bag 11:12 CDT mL/hr, CONTINUOUS, Starting Thu07/27/17 at 1100, Until Thu07/27/17 at 2333, Pre-Op Given - New Bag 07/27/2017 19:21 CDT lidocaine (PF) injection Given 07/27/2017 90 mg INTRA-PROCEDURE MED, Starting Mon 19:01 CDT 07/27/17 at 1901, Until Thu07/29/17 at 1307, Anesthesia Intra-op ondansetron (ZOFRAN) injection Given 07/27/2017 4 mg Intravenous, INTRA-PROCEDURE MED, 20:26 CDT Starting Thu07/27/17 at 2026, Until Thu07/29/17 at 1307, Nausea/Vomiting Injectable, Anesthesia Intra-op phenylephrine in NS Injection Given 07/27/2017 50 mcg Intravenous, INTRA-PROCEDURE MED, 19:45 CDT Starting Thu07/27/17 at 1915, Until Thu07/29/17 at 1307, Symptomatic Hypotension, Anesthesia Intra-op Given 07/27/2017 100 mcg 20:09 CDT Given 07/27/2017 100 mcg 20:27 CDT propofol (DIPRIVAN) injection Given 07/27/2017 20 mg INTRA-PROCEDURE MED, Starting Thu 19:36 CDT 07/27/17 at 1901, Until Thu07/29/17 at 1307, Anesthesia Intra-op Given 07/27/2017 20 mg 20:06 CDT Given 07/27/2017 20 mg 20:31 CDT scopolamine (TRANSDERM-SCOP) patch 1 Patch 07/27/2017 1 patch Ear, Behind patch Applied 13:50 CDT 1 patch, Transdermal, Administer over 72 Hours, EVERY 72 HOURS, First dose on Thu07/27/17 at 1445, Until Discontinued Given 07/27/2017 1 patch 18:30 CDT succinylcholine (ANECTINE) injection Given 07/27/2017 90 mg Intravenous, INTRA-PROCEDURE MED, 19:02 CDT Starting Thu07/27/17 at 1902, Until Thu07/29/17 at 1307, Anesthesia Intra-op in this encounter
--- OUTSIDE RECORDS SUMMARY | 2017-08-27 10:13 | XMS REPORT | Encounter Summary ---
Author Author [facility] Organization [facility] Address Unknown Phone Unavailable Care Team Providers Care Ophthalmology Assistant Name Role Phone PCP Unavailable Reason for Visit * Auth/Cert Status Reason Specialty Diagnoses / Referred By Referred To Procedures Contact Contact Diagnoses Malignant neoplasm of overlapping sites of bladder (HCC) UNKNOWN P rocedures UT CYSTO W/REMOVAL OF TUMORS SMALL UT BIOPSY/EXCISION, LYMPH NODE(S) CYSTOSCOPY WITH TRANSURETHRAL RESECTION LESION BLADDER; Encounter Details Date Type Department Care Team Description 07/27/2017 Surgery Main Operating Room Truong Whitmore MD CYSTOSCOPY [address] [facility] [address] [place] [address] [place] [address] [place], [place] [id number] Social History Tobacco Use Types Packs/Day Years Used Date Current Every Day Smoker Cigarettes 1 50 Smokeless Tobacco: Never Used Alcohol Use Drinks/Week oz/Week Comments No 0 Standard 0.0 drinks or equivalent Sex Assigned at Date Recorded Not on file as of this encounter Last Filed Vital Signs Vital Sign Reading Time Taken Blood Pressure 140/64 07/28/2017 7:31 AM CDT Pulse 82 07/28/2017 7:31 AM CDT Temperature 36.3 C (97.4 F) 07/28/2017 7:31 AM CDT Respiratory Rate - - Oxygen Saturation 93% 07/28/2017 7:31 AM CDT Inhaled Oxygen - - Concentration Weight 92.4 kg (203 lb 12.8 oz) 07/27/2017 10:51 PM CDT Height 177.8 cm (5' 10") 07/27/2017 10:51 PM CDT Body Mass Index 29.24 07/27/2017 10:51 PM CDT in this encounter Medications at Time of Discharge Medication Sig. Disp. Refills Start Date End Date apixaban (ELIQUIS) 5 mg Take 1 tablet by mouth 60 tablet 0 07/28/2017 tabletIndications: twice daily. Indications: PREVENT THROMBOEMBOLISM PREVENT THROMBOEMBOLISM IN CHRONIC ATRIAL IN CHRONIC ATRIAL FIBRILLATION FIBRILLATION calcium carbonate Take 1,250 mg by mouth (OS-DANNIE) 1250 mg tablet daily. ciprofloxacin (CIPRO) 500 Take 1 tablet by mouth 6 tablet 0 2016 mg tablet twice daily. ferrous sulfate (FEOSOL, Take 325 mg by mouth FEROSUL) 325 mg (65 mg daily. Take on an empty iron) tablet stomach at least 1 hour before or 2 hours after food. HYDROcodone/acetaminophen Take 1 Tab by mouth every 15 Tab 0 2016 (NORCO) 5/325 mg tablet 6 hours as needed for Pain losartan/hydrochlorothiaz Take by mouth daily. elisabeth (HYZAAR) 50/12.5 mg tablet metoprolol XL (TOPROL XL) Take 50 mg by mouth 50 mg tablet daily. polyethylene glycol 3350 Take 1 packet by mouth 12 each 3 07/28/2017 (MIRALAX) 17 g twice daily. Indications: packetIndications: CONSTIPATION CONSTIPATION senna/docusate Take 1 tablet by mouth 15 tablet 0 07/28/2017 (SENOKOT-S) 8.6/50 mg twice daily. Indications: tabletIndications: CONSTIPATION CONSTIPATION solifenacin(+) (VESICARE) Take 10 mg by mouth 10 mg tablet daily. as of this encounter Progress Notes * Abbie Yin RN - 07/28/2017 10:54 AM CDT Reviewed all discharge paperwork with patient and daughter. All questions and concerns were addressed. DC'd patient's IV. Patient wheeled down to lobby by transport. * Lynette Bob RN - 07/28/2017 6:28 AM CDT Pt has only 300 UOP for awake overnight counselor since receiving pt around 2230. Pt bladder scanned around 0500 on 07/[address] with [address] Dimas doe Urology team notified during rounds at 0615. * Lynette Bob, LISETH - 07/28/2017 5:50 AM CDT Pt's tele shows a fib with 4.13 sec pause. Pt denies chest pain, shortness of breath, or any other symptoms at this time. Pt notes she had a coughing fit around this same time. notified and will put in for EKG and will be up to round on pt shortly. RN will continue to monitor. * Jason Cochran MD - 07/28/2017 5:39 AM CDT Formatting of this note may be different from the original. Urology Progress Note 07/28/2017 ASSESSMENT: Edith Dejesus is a 71 y.o. 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 Whitmore - Pain control: PO, antispasmodics - Diet/FEN: regular - Cardiac: still in A. Fib, will talk to cardiology but will need anticoagulation - GI: bowel regimen - : voiding spontaneously - OOB/Amb - Dispo: Discharge home today Prophylaxis Review: - DVT: Lovenox - GI: No - Catheter: No - Abx: No Jason Cochran M.D. Please page urology photovoltaic subcontractor with questions SUBJECTIVE: Overnight events: No acute events. Pain controlled. Tolerating regular diet without nausea or emesis. + ambulation. OBJECTIVE: Vital Signs: Most Recent Vital Signs: Past 24 Hours BP: 139/57 (07/28 500) Temp: 36.4 C (97.5 F) (07/28 500) Pulse: 74 (07/28 500) Respirations: 16 PER MINUTE (07/28 500) SpO2: 96 % (07/28 500) O2 Delivery: None (Room Air) (07/28 500) Height: 177.8 cm (70") (07/27 2251) Weight: 92.4 kg (203 lb 12.8 oz) (07/27 2251) BP: (139-168)/(50-88) Temp: [36.4 C (97.5 F)-36.6 C (97.9 F)] Pulse: [74-113] Respirations: [16 PER MINUTE-28 PER MINUTE] SpO2: [93 %-98 %] O2 Delivery: None (Room Air) General: alert, oriented, no acute distress. Pulm: non-labored, equal chest rise CV: regular rate, still in atrial fibrillation Abd: soft, non-distended Incisions / Wounds: Appropriately tender to palpation. Right groin incision C/D/ I with steri strips Extremities: No edema, SCD's in place : no CVA tenderness Labs: Hematology Chemistry No results for input(s): WBC, HGB, PLTCT, PTT, INR in the last 72 hours. No results for input(s): NA, K, CL, CO2, BUN, CR, GFR, GLU, CA, PO4 in the last 72 hours. Invalid input(s): MAG Associated attestation - Truong Whitmore MD - 07/28/2017 8:09 AM CDT Patient seen and examined. Pertinent radiology and laboratory reviewed. I agree with the resident's note and plan. Truong Whitmore MD * Kimberly Munson, RN - 07/27/2017 1:29 PM CDT Pt's case had been cancelled due to a new onset of A-Fib. After cardiology consult, it was decided the pt was stable for her surgical procedure today with Dr. Whitmore and would be sent home with a rx of Eliquis and to follow up with her division traffic superintendent. Dr. Wyman with cardiology and Dr. Whitmore spoke, and Dr. Whitmore is aware of the Eliquis rx. in this encounter H&P Notes * Michael Hall MD - 07/27/2017 1:32 PM CDT History and Physical Update Note Allergies: Review of patient's allergies indicates no known allergies. Lab/Radiology/Other Diagnostic Tests: 24-hour labs: No results found for this visit on 07/27/17 (from the past 24 hour(s)). Point of Care Testing: (Last 24 hours): I have examined the patient, and the following changes are noted from the previous H&P performed on 07/17/17. New onset Afib diagnosed pre-operatively. Evaluated by cardiology and cleared for procedure. Will need outpatient following and possibly long-term anticoagulation in addition to current rate control. -- To OR as indicated; risks reviewed and consent in chart Michael Hall MD Pager [phone] * Truong Whitmore MD - 07/17/2017 9:15 AM CDT Formatting of this note may be different from the original. Date of Service: 07/17/2017 Subjective: Edith Dejesus is a 71 y.o. female. History of Present Illness Pt here for follow up for bladder cancer Presented to PCP noting right groin node CT AP single right enlarged inguinal node FNA: urothelial cancer She feels well and denies pain, hematuria, dysuria Past Medical History: Diagnosis Date Arthritis Bladder cancer (HCC) Bronchitis 01/23/16 Hypertension Incontinence Urinary tract infection Past Surgical History: Procedure Laterality Date UT CYSTOURETHROSCOPY W/DEST &/RMVL MED BLADDER ALEC 01/05/2014 UT CYSTOURETHROSCOPY W/DEST &/RMVL MED BLADDER ALEC N/A 02/28/2016 CYSTOSCOPY WITH TRANSURETHRAL RESECTION BLADDER TUMOR, BLUE LIGHT CYSTOSCOPY AND BILATERAL RETROGRADE PYELOGRAMS performed by Truong Whitmore MD at Main OR/ Periop UT CYSTOURETHROSCOPY W/DEST &/RMVL MED BLADDER ALEC N/A 01/26/2017 BLUE LIGHT CYSTOSCOPY WITH TRANSURETHRAL RESECTION OF BLADDER TUMOR, BILATERAL RETROGRADE PYLEOGRAM, AND RIGHT URETEROSCOPY performed by Truong Whitmore MD at Main OR/Periop BLADDER TUMOR EXCISION CYSTOSCOPY HX HYSTERECTOMY HX JOINT REPLACEMENT No family history on file. Social History Social History Marital status: Spouse name: N/A Number of children: N/A Years of education: N/A Social History Main Topics Smoking status: Current Every Day Smoker Packs/day: 1.00 Years: 50.00 Types: Cigarettes Smokeless tobacco: Never Used Alcohol use No Drug use: No Sexual activity: No Other Topics Concern None Social History Narrative Review of Systems Constitutional: Negative for activity change, appetite change, chills and fever. Respiratory: Negative for cough and shortness of breath. Cardiovascular: Negative for chest pain and leg swelling. Gastrointestinal: Negative for abdominal pain, constipation and diarrhea. Genitourinary: Negative for dysuria, enuresis, flank pain, frequency and hematuria. Musculoskeletal: Negative for joint swelling. Skin: Negative for rash and wound. Neurological: Negative for syncope, weakness, light-headedness and headaches. Hematological: Negative for adenopathy. Psychiatric/Behavioral: Negative for confusion. Objective: calcium carbonate (OS-DANNIE) 1250 mg tablet Take [...] tablet Take 10 mg by mouth daily. Vitals: 07/17/17 0928 BP: 138/71 Pulse: 93 Weight: 93.7 kg (206 lb 9.6 oz) Height: 177.8 cm (70") Body mass index is 29.64 kg/(m^2). Physical Exam Constitutional: She appears well-developed and well-nourished. No distress. Eyes: Pupils are equal, round, and reactive to light. Neck: Neck supple. Cardiovascular: Normal rate and regular rhythm. Pulmonary/Chest: Breath sounds normal. No respiratory distress. Abdominal: Soft. She exhibits no distension and no mass. There is no tenderness. Musculoskeletal: She exhibits no edema. Skin: No erythema. Assessment and Plan: Problem Bladder Cancer (Hcc) Followed in [place] since 2007 Probable CIS Underwent BCG Cytology and FISH positive Blue light, TURBT 12/2013: (-) 11/2014: cis 02/2016: (-) 01/2017: (-) Presented to PCP noting right groin node CT AP single right enlarged inguinal node FNA: urothelial cancer Bladder cancer (HCC) I had a detailed discussion with the patient and her family. I reviewed that bladder cancer metastatic to the inguinal nodes is an unusual finding given previous negative cystoscopy and TURBTs. We reviewed possibility of urothelial cancer in the urethra. I reviewed EUA, cystoscopy, possible TURBT or urethral tumor. We will also perform exicisional biopsy of inguinal node/ Roge Huerta MD in this encounter Consult Notes * Garo Lock MD - 07/27/2017 12:55 PM CDT Associated Order(s): CONSULT CARDIOLOGY PHYSICIAN Formatting of this note may be different from the original. CARDIOLOGY CONSULT NOTE ATT: I have discussed with fellow and residents and agree with assessment and plan. Exam No s3,rales,edema. Probably [place] standing Afib asymptomatic. Would go ahead with Lymph node BX resection and then do AC as out pt with follow up with her brothers division traffic superintendent locally. Spoke with pt and her family at [facility]. Reason for Consult: New onset atrial fibrillation, CHADSVASC: 3 (age, female, hypertension) History of Present Illness Mrs. Dejesus is a pleasant 71-year-old female with past medical history significant for hypertension as well as long-standing history of carcinoma of the bladder status post multiple interventionsdisease who presents today for lymph node biopsy. Mrs. Dejesus was observed to be in atrial fibrillation with a ventricular rate of 70-80s. No observation for hemodynamic instability. She has no known previous history of atrial arrhythmias or any other sig cardiovascular history per report. She has no significant family history of any atrial arrhythmias, cardiomyopathy or coronary disease previously. She is currently managed from standpoint of hypertension on Lopressor 50mg ext release as well as a combination losartan/chlorothiazide pill. Per report her blood pressures in the 150s-70s historically. She does have a significant smoking history smoking 1 pack for many decades. She is currently actively smoking. She has no known history of COPD or lung disease of consequence. Of note the patient per her report does snore. She has never had any official obstructive sleep apnea evaluation. Regarding her functional status, it is typically limited by her long history of arthritis of the knee and hips. She status post a left knee replacement many years prior. She denies any history of shortness of air, dyspnea exertion, dyspnea at rest, chest pressure/pressure. She is not appreciating palpitation or elevated heart rate. She currently remains a stomatic for the observed atrial for ablation. Assessment & Recs Edith Dejesus is a 71 y.o. patient with the following problems: Principal Problem: Malignant neoplasm of overlapping sites of bladder (HCC) # atrial fibrillation, new onset; CHADSVASC: 3 - patient is fortunately not symptomatic for the rhythm. As such, hard to tell how long the patient may have been in the rhythm prior to her admission. - can proceed with LN biopsy - would recommend continue rate control with lopressor as previously prescribed and begin anticoagulation with eliquis 5 BID for primary stroke prevention when able to from surgical standpoint with follow-up with local division traffic superintendent for cont eval and treatment Thank you for allowing us to participate in the care of this patient. Discussed with Dr. Lock who agrees with plan above. Kumar Wyman II MD Fellow, Division of Cardiovascular Medicine [facility] Pager # [phone] Home Medications Prescriptions Prior to Admission Medication Sig calcium carbonate (OS-DANNIE) 1250 mg tablet Take [...] tablet Take 10 mg by mouth daily. Current Medications Scheduled Meds: ceFAZolin (ANCEF) IVP 2 g 2 g Intravenous ONCE Continuous Infusions: lactated ringers infusion 1,000 mL (07/27/17 1112) PRN and Respiratory Meds: Allergies No Known Allergies Past Medical History Past Medical History: Diagnosis Date Arthritis Bladder cancer (HCC) Bronchitis 01/23/16 Hypertension Incontinence Urinary tract infection Past Surgical History Past Surgical History: Procedure Laterality Date UT CYSTOURETHROSCOPY W/DEST &/RMVL MED BLADDER ALEC 01/05/2014 UT CYSTOURETHROSCOPY W/DEST &/RMVL MED BLADDER ALEC N/A 02/28/2016 CYSTOSCOPY WITH TRANSURETHRAL RESECTION BLADDER TUMOR, BLUE LIGHT CYSTOSCOPY AND BILATERAL RETROGRADE PYELOGRAMS performed by Truong Whitmore MD at Main OR/ Periop UT CYSTOURETHROSCOPY W/DEST &/RMVL MED BLADDER ALEC N/A 01/26/2017 BLUE LIGHT CYSTOSCOPY WITH TRANSURETHRAL RESECTION OF BLADDER TUMOR, BILATERAL RETROGRADE PYLEOGRAM, AND RIGHT URETEROSCOPY performed by Truong Whitmore MD at Main OR/Periop BLADDER TUMOR EXCISION CYSTOSCOPY HX HYSTERECTOMY HX JOINT REPLACEMENT Social History Social History Social History Marital status: Spouse name: N/A Number of children: N/A Years of education: N/A Occupational History Not on file. Social History Main Topics Smoking status: Current Every Day Smoker Packs/day: 1.00 Years: 50.00 Types: Cigarettes Smokeless tobacco: Never Used Alcohol use No Drug use: No Sexual activity: No Other Topics Concern Not on file Social History Narrative Family History History reviewed. No pertinent family history. Review of Systems 10 point ROS completed and negative except as noted per HPI. Vital Signs: Most Recent Vital Signs: 24 Hour Range BP: 143/82 (07/27 1117) Temp: 36.4 C (97.5 F) (07/27 1117) Pulse: 85 (07/27 1117) Respirations: 18 PER MINUTE (07/27 1117) SpO2: 95 % (07/27 1117) O2 Delivery: None (Room Air) (07/27 1117) Height: 177.8 cm (5' 10") (07/27 1117) BP: (143)/(82) Temp: [36.4 C (97.5 F)] Pulse: [85] Respirations: [18 PER MINUTE] SpO2: [95 %] O2 Delivery: None (Room Air) Vitals: 07/27/17 1117 Weight: 91.5 kg (201 lb 11.5 oz) No intake or output data in the 24 hours ending 07/27/17 1255 Physical Exam GENERAL: The patient is well developed, well nourished, resting comfortably and in no distress. HEENT: No abnormalities of the visible dusty-nasopharynx, conjunctiva or sclera are noted. NECK: There is no jugular venous distension. Carotids are palpable and without bruits. There is no thyroid enlargement. Chest: Lung nguyễn are clear to auscultation w/ + end exp wheezing. CV: There is a irregular irreg rhythm. The first and second heart sounds are normal. There are no murmurs, gallops or rubs. ABD: The abdomen is soft and supple with normal bowel sounds. There is no hepatosplenomegaly, ascites, tenderness, masses or bruits. Neuro: There are no focal motor defects. Ambulation is normal. Cognitive function appears normal. Ext: There is no edema or evidence of deep vein thrombosis. Peripheral pulses are satisfactory. SKIN: There are no rashes and no cellulitis PSYCH: The patient is calm, rationale and oriented. Lab/Radiology/Other Diagnostic Tests: 24-hour labs: No results found for this visit on 07/27/17 (from the past 24 hour(s)). in this encounter Miscellaneous Notes * Case Mgmt DC Plan - Stephanie Loya - 07/28/2017 9:21 AM CDT Case Management Progress Note NAME:Edith Dejesus :[birth year] AGE: 71 y.o. ADMISSION DATE: 07/27/2017 DAYS ADMITTED: LOS: 0 days Todays Date: 07/28/2017 Plan JOVANI reviewed EMR and discussed in interdisciplinary huddle. Pt here as extended recovery for excision of right inguinal node and Cystoscopy. Pt developed Afib overnight. New prescription for Elaquist 5mg BID called to patient's home pharmacy, [facility] [phone]. Her cost would be $ 198.00. [facility] called [employer] [phone], to obtain preferred anticoagulant list. They would approve Xarelto, Savaysa, or Bevyxxa. [facility] notified [employer] who discussed with cardiology. LINA called Xarelto 20mg PO daily #30 with 2 refills to patient's home pharmacy. The cost for this will be $47.00. LINA met with patient at bedside to discuss. Pt states she is able to afford the copay Interventions ? Support Support: Pt/Family Updates re:POC or DC Plan ? Info or Referral ? Discharge Planning ? Medication Needs Medication Needs: Co-Pay Check (Elaquist 5mg BID) ? Financial ? Legal ? Other Disposition ? Discharge Preparation Type of Residence: Private residence Patient expects to be discharged to: Private residence Was the patient receiving home care services?: No ? Expected Discharge ? Discharge Disposition Disposition: Home with No Needs (includes snf, [place]) ? [facility] Stephanie Loya RN, BSN, [facility] [phone] * Care Plan - Lynette Bob RN - 07/28/2017 2:27 AM CDT Problem: Discharge Planning Goal: Participation in plan of care Outcome: Goal Ongoing Pt takes an active role in POC. All questions answered at this time and pt verbally acknowledges understanding. Goal: Knowledge regarding plan of care Outcome: Goal Ongoing Pt anticipates discharge and engages in plan of care accordingly. Goal: Prepared for discharge Outcome: Goal Ongoing Pt anticipates discharge and engages in plan of care accordingly. Problem: Pain Goal: Management of pain Outcome: Goal Ongoing No c/o pain at this time. Goal: Knowledge of pain management Outcome: Goal Ongoing Pt is aware of options for pain control. * Operative Report (Direct Entry) - Truong Whitmore MD - 07/27/2017 10:36 PM CDT Formatting of this note may be different from the original. OPERATIVE REPORT Name: Edith Dejesus is a 71 y.o. female : 1945 DATE OF OPERATION: 07/27/2017 Surgeon(s) and Role: * Truong Whitmore MD - Primary * Michael Hall MD - Resident - Assisting Preoperative Diagnosis: * Malignant neoplasm of overlapping sites of bladder (HCC) [C67.8] Post-op Diagnosis * Malignant neoplasm of overlapping sites of bladder (HCC) [C67.8] Procedure(s) (LRB): CYSTOSCOPY EXCISION OF RIGHT INGUINAL NODE (Right) Anesthesia Type: General Patient is a 71-year-old female with history of recurrent CIS. She was found to have right inguinal adenopathy on surveillance imaging. This instigated a fine- needle aspiration that identified metastatic bladder cancer. This would be an abnormal distribution in terms of metastatic spread; therefore, she has elected to undergo cystoscopy with excisional lymph node biopsy. Description and Findings of Operative Procedure: Findings: 1. Large right inguinal lymph node 2. No urethral or bladder tumors Patient was identified and consented. She was then taken back to the operating room and placed in supine positioning. IV antibiotics were given before smooth induction of endotracheal anesthesia. She was then placed in dorsal lithotomy with care to pad all pressure points. SCDs were on and functioning. Her genitals were prepped and draped in normal sterile fashion. A timeout was performed confirming the correct patient and procedure. On exam her urethral meatus appeared indurated but there is no apparent masses or lesions. The meatus was rubbery on palpation but not fixed. Rigid cystoscopy did not identify any urethral lesions. Following evaluation of the urethra we then turned our attention to the right inguinal node. She was taken out of dorsal lithotomy and re-prepped and draped in normal sterile fashion. A 4 cm incision was made over the palpable node. We carried this incision down with electrocautery taking care to avoid both the femoral artery and vein. The lymph node was freed from its lateral attachments. Once liberated from the inguinal space, the node was sent off the table for specimen. The resection site was re-examined and appeared to be hemostatic. No artery or venous injuries were identified. The groin was closed in layers using 2-0 Vicryl. The skin was closed in a running subcuticular fashion using 4-0 Monocryl. Prior to closure the wound was irrigated with sterile water. Also 10cc of quarter percent Marcaine was injected for local analgesia. Finally, steri-strips were applied. The patient tolerated all this very well. She was then awoken from anesthesia, dressed, taken to PACU in stable condition. Dr. Whitmore was present for all alfonso portions of the case. Estimated Blood Loss: 10cc Specimen(s) Removed/Disposition: ID Type Source Tests Collected by Time Destination 1 : RIGHT INGUINAL LYMPH NODE FOR ROUTINE Tissue Pelvis SURGICAL PATHOLOGY Truong Whitmore MD 07/27/20171950 Michael Hall MD Pager [phone] I performed this procedure with a resident. Truong Whtimore MD * Procedures (Immed Post or Bedside) - Michael Hall MD - 07/27/2017 8:55 PM CDT Formatting of this note may be different from the original. Brief Operative Note Name: Edith Dejesus is a 71 y.o. female : 1945 DATE OF OPERATION: 07/27/2017 Date: 07/27/2017 Preoperative Dx: Malignant neoplasm of overlapping sites of bladder (HCC) [C67.8] Post-op Diagnosis * Malignant neoplasm of overlapping sites of bladder (HCC) [C67.8] Procedure(s) (LRB): CYSTOSCOPY EXCISION OF RIGHT INGUINAL NODE (Right) Anesthesia Type: General Surgeon(s) and Role: * Michael Hall MD - Resident - Assisting * Truong Whitmore MD - Primary Findings: 1. Large right inguinal lymph node 2. No urethral or bladder tumors Estimated Blood Loss: Minimal Specimen(s) Removed/Disposition: ID Type Source Tests Collected by Time Destination 1 : RIGHT INGUINAL LYMPH NODE FOR ROUTINE Tissue Pelvis SURGICAL PATHOLOGY Truong Whitmore MD 07/27/20171950 Complications: None Implants: None Drains: None Disposition: PACU - stable Michael Hall MD Pager [phone] in this encounter Plan of Treatment Name Priority Associated Diagnoses Order Schedule SURGICAL PATHOLOGY Routine Malignant neoplasm of ONCE for 1 Occurrences overlapping sites of starting 07/27/2017 bladder (HCC) as of this encounter Procedures Procedure Name Priority Date/Time Associated Diagnosis [...] overlapping sites of bladder (HCC) Special Needs in this encounter Results * ECG-SCAN (08/05/2017 7:58 AM) Narrative Ordered [...] - 11 FL Specimen Performing Laboratory Blood [facility] [address] [place] [address] * BASIC METABOLIC PANEL (07/28/2017 5:21 AM) [...] Pharmacist for questions. Specimen Performing Laboratory [facility] [address] [place] [id number] * ECG-SCAN (07/27/2017 10:30 PM) Narrative Ordered by an unspecified provider. * SURGICAL PATHOLOGY (07/27/2017 6:08 AM) Component Value Ref Range PATHOLOGY REPORT [facility] [email or web address] Charissa Sesay MD, PhD, Director of Anatomic Pathology Department of Pathology and Laboratory Medicine [address] [place] [id number] Surgical Pathology Office: [phone] SURGICAL PATHOLOGY REPORT NAME: EDITH DEJESUS SURG PATH #: [id number] MR #: [id number] SPECIMEN CLASS: SR BILLING #: [id number] ALT ID #: LOCATION: 64 DATE OF PROCEDURE: 07/27/2017 AGE: 71 SEX: F DATE RECEIVED: 07/28/2017 : 1945 TIME RECEIVED: 06:08 PHYSICIAN: TRUONG WHITMORE DATE OF REPORT: 07/30/2017 COPY TO: DATE [...] material indicated in this report. +++ +++ Elizabeth Weinstein DO Resident [facility]/07/28/2017 ################################################## ###################### Material Received: A: right inguinal [...] white-evans cut surface grossly involved with tumor. Ccnp sections of the specimen are submitted in cassettes A1 and A2. (mn) mn/07/28/2017 If immunohistochemical stains and/or in situ hybridization are cited in this report, the performance characteristics were determined by the Department of Pathology and Laboratory Medicine of the [facility] ([employer]) in compliance with [...] of Pathology and Laboratory Medicine of the [facility]. It has not been cleared or approved by the FDA. The FDA has determined that such clearance or approval is not necessary. Specimen Performing Laboratory [facility] RESULTS in this encounter Visit Diagnoses Diagnosis Malignant neoplasm of overlapping sites of bladder (HCC) Malignant neoplasm of other specified sites of bladder in this encounter Admitting Diagnoses Diagnosis Malignant neoplasm of overlapping sites of bladder (HCC) - UNKNOWN Malignant neoplasm of other specified sites of bladder Bladder cancer (HCC) in this encounter Administered Medications Medication Order MAR Action Action Date Dose Rate Site bupivacaine 0.25%/EPINEPHrine 1:200,000 Given 07/27/2017 9 mL injection 20:35 CDT INTRA-PROCEDURE MED, Starting Thu07/27/17 at 2035, Until Thu07/27/17 at 2246, Intra-op enoxaparin (LOVENOX) syringe 40 mg Given 07/28/2017 40 mg Arm, Left 40 mg, Subcutaneous, DAILY, First dose 01:08 CDT on Thu07/27/17 at 2345, Until Discontinued, For patients undergoing surgery: Consult physician in advance -- enoxaparin is an anticoagulant and may need to be held for 12hr prior to surgery or invasive procedures. NOTE: This is a HIGH ALERT Medication. fentaNYL citrate PF (SUBLIMAZE) Given 07/27/2017 25 mcg injection 50 mcg 21:39 CDT 50 mcg, Intravenous, EVERY 5 MIN PRN, Starting Thu07/27/17 at 2105, Until Thu07/27/17 at 2246, Pain Injectable, For Pain Score 7-10, Maximum total dose of 200 mcg Hold for RR < 10 lactated ringers infusion Given - New 07/27/2017 1,000 mL 20 mL/hr 1,000 mL, 1,000 mL, Intravenous, at 20 Bag 11:12 CDT mL/hr, CONTINUOUS, Starting Thu07/27/17 at 1100, Until Thu07/27/17 at 2333, Pre-Op Given - New Bag 07/27/2017 19:21 CDT losartan (COZAAR) 50 mg, Given 07/28/2017 hydroCHLOROthiazide (HYDRODIURIL) 12.5 08:40 CDT mg per each dose Oral, DAILY, First dose on Thu07/28/17 at 0900, Until Discontinued, For Hyzaar 50-12.5 - Each ordered dose is delivered as one tablet each component metoprolol XL (TOPROL XL) tablet 50 mg Given 07/28/2017 50 mg 50 mg, Oral, DAILY, First dose on Thu 08:41 CDT 07/28/17 at 0900, Until Discontinued, Hold for heart rate < 60 bpm or systolic BP < 120 tablets may be cut in half, DO NOT CRUSH or CHEW oxybutynin XL (DITROPAN XL) tablet 5 mg Given 07/28/2017 5 mg 5 mg, Oral, DAILY, First dose on Thu 08:41 CDT 07/28/17 at 0900, Until Discontinued, Admission/Obs/Extended Recovery oxyCODONE (ROXICODONE, OXY-IR) tablet 5 Given 07/27/2017 5 mg mg 21:35 CDT 5 mg, Oral, ONCE PRN, 1 dose, Starting Thu07/27/17 at 2105, Until Thu07/27/17 at 2359, Pain PO, For Pain Score <4, PACU (only) polyethylene glycol 3350 (MIRALAX) Given 07/28/2017 17 g packet 17 g 01:09 CDT 17 g (1 packet), Oral, TWICE DAILY, First dose on Thu07/27/17 at 2345, Until Discontinued, 8.5 GRAMS=0.5 PACKET 17 GRAMS=1 PACKET 34 GRAMS=2 PACKETS Given 07/28/2017 17 g 08:40 CDT scopolamine (TRANSDERM-SCOP) patch 1 Patch 07/27/2017 1 patch Ear, Behind patch Applied 13:50 CDT 1 patch, Transdermal, Administer over 72 Hours, EVERY 72 HOURS, First dose on Thu07/27/17 at 1445, Until Discontinued Given 07/27/2017 1 patch 18:30 CDT senna/docusate (SENOKOT-S) tablet 2 Given 07/28/2017 2 tablets tablet 01:08 CDT 2 tablet, Oral, TWICE DAILY, First dose on Thu07/27/17 at 2345, Until Discontinued, Hold for loose stools Given 07/28/2017 2 tablets 08:41 CDT in this encounter
--- OUTSIDE RECORDS SUMMARY | 2017-08-27 10:13 | XMS REPORT | Encounter Summary ---
Author Author [facility] Organization [facility] Address Unknown Phone Unavailable Care Team Providers Care Testing Lead Name Role Phone PCP Unavailable Reason for Visit * Auth/Cert Status Reason Specialty Diagnoses / Referred By Referred To Procedures Contact Contact Diagnoses Malignant neoplasm of overlapping sites of bladder (HCC) UNKNOWN P rocedures HI CYSTO W/REMOVAL OF TUMORS SMALL HI BIOPSY/EXCISION, LYMPH NODE(S) CYSTOSCOPY WITH TRANSURETHRAL RESECTION LESION BLADDER; Encounter Details Date Type Department Care Team Description 07/27/2017 Hospital Renal/Organ Transplant Truong Whitmore MD Malignant neoplasm of - Encounter [address] overlapping sites of 07/28/2017 [place] [address] [address] bladder (HCC) [phone] [place], [place] [id number] Social History Tobacco Use Types Packs/Day Years [...] CDT Pt has only 300 UOP for night club manager since receiving pt around 2230. Pt bladder scanned around 0500 on 07/[address] with [address] Dimas doe Urology team notified during rounds at 0615. * Lynette Bob RN - 07/28/2017 5:50 AM CDT Pt's tele shows a fib with 4.13 sec pause. Pt denies chest pain, shortness of breath, or any other symptoms at this time. Pt notes she had a coughing fit around this same time. MD notified and will put in for EKG [...] No Jason Cochran M.D. Please page urology construction equipment technician with questions SUBJECTIVE: Overnight events: No acute [...] plan. Truong Whitmore MD * Kimberly Munson, LISETH - 07/27/2017 1:29 PM CDT Pt's case had been cancelled due to a new onset of A-Fib. After cardiology consult, it was decided the pt was stable for her surgical procedure today with Dr. Whitmore and would be sent home with a rx of Eliquis and to follow up with her neon molder. Dr. Wyman with cardiology and Dr. Whitmore spoke, and Dr. Wihtmore is aware of the Eliquis rx. 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 Spoke with pt and her family at [facility]. Reason for Consult: New onset atrial [...] from surgical standpoint with follow-up with local neon molder for cont eval and treatment Thank you for allowing us to participate in the care of this patient. Discussed with Dr. Lock who agrees with plan above. Kumar Wyman II MD Fellow, Division of Cardiovascular Medicine [facility] Pager # [phone] Home Medications Prescriptions Prior to Admission Medication [...] History Past Surgical History: Procedure Laterality Date HI CYSTOURETHROSCOPY W/DEST &/RMVL MED BLADDER ALEC 01/05/2014 HI CYSTOURETHROSCOPY W/DEST &/RMVL MED BLADDER ALEC N/A 02/28/2016 CYSTOSCOPY WITH TRANSURETHRAL RESECTION BLADDER TUMOR, BLUE LIGHT CYSTOSCOPY AND BILATERAL RETROGRADE PYELOGRAMS performed by Truong Whitmore MD at Main OR/ Periop HI CYSTOURETHROSCOPY W/DEST &/RMVL MED BLADDER ALEC N/A [...] 5mg BID called to patient's home pharmacy, [facility] [phone]. Her cost would be $ 198.00. [facility] called [facility] [phone], to obtain preferred anticoagulant list. They would approve Xarelto, Savaysa, or Bevyxxa. [facility] notified ADVERTISING WRITER who discussed with cardiology. LINA called Xarelto 20mg PO daily #30 with 2 refills to patient's home pharmacy. The cost for this will be $47.00. LINAM met with patient at bedside to discuss. [...] Disposition Disposition: Home with No Needs (includes custodial, [place]) ? [facility] Stephanie Loya RN, BSN, [facility] [phone] * Care Plan - Lynette Bob RN [...] Whitmore MD 07/27/20171950 Michael Hall MD Pager [phone] I performed this procedure with a resident. Truong Whitmore MD * Procedures (Immed Post or Bedside) [...] PACU - stable Michael Hall MD Pager [phone] in this encounter Plan of Treatment Name [...] Performing Laboratory [facility] [address] [place] [address] * BASIC METABOLIC PANEL (07/28/2017 5:21 AM) [...] questions. Specimen Performing Laboratory [facility] [address] [place] [address] * ECG-SCAN (07/27/2017 10:30 PM) Narrative Ordered by an unspecified provider. * SURGICAL PATHOLOGY (07/27/2017 6:08 AM) Component Value Ref Range PATHOLOGY REPORT [facility] [email or web address] Charissa Sesay MD, PhD, Director of Anatomic Pathology Department of Pathology and Laboratory Medicine [address] [place] [id number] Surgical Pathology Office: [phone] SURGICAL PATHOLOGY REPORT NAME: EDITH DEJESUS SURG PATH #: [id number] MR #: [id number] SPECIMEN CLASS: SR BILLING #: [id number] ALT ID #: LOCATION: 64 DATE OF [...] report. +++ +++ Elizabeth Weinstein DO Resident [facility]/07/28/2017 ################################################## ###################### Material Received: A: right inguinal [...] white-evans cut surface grossly involved with tumor. Dictaphone Typist sections of the specimen are submitted in cassettes A1 and A2. (nm) nm/07/28/2017 If immunohistochemical stains and/or in situ hybridization are cited in this report, the performance characteristics were determined by the Department of Pathology and Laboratory Medicine of the [facility] ([employer]) in compliance with CLIA'88 [...] of Pathology and Laboratory Medicine of the [facility]. It has not been cleared or approved by the FDA. The FDA has determined that such clearance or approval is not necessary. Specimen Performing Laboratory [facility] RESULTS in this encounter Visit Diagnoses Diagnosis Atrial fibrillation, chronic (HCC) - Primary Atrial fibrillation Malignant neoplasm of overlapping sites of bladder (HCC) Malignant neoplasm of other specified sites of bladder in this encounter Admitting Diagnoses Diagnosis Malignant neoplasm of overlapping sites of bladder (HCC) - UNKNOWN Malignant neoplasm of other specified sites of bladder Bladder cancer (HCC) in this encounter Administered Medications Medication Order MAR Action Action Date Dose Rate Site enoxaparin (LOVENOX) syringe 40 mg Given 07/28/2017 [...]
--- OUTSIDE RECORDS SUMMARY | 2017-08-27 10:13 | XMS REPORT | Encounter Summary ---
Author Author [facility] Organization [facility] Address Unknown Phone Unavailable Care Team Providers Care Slip Dumper Name Role Phone PCP Unavailable Encounter Details Date Type Department Care Team Description 07/27/2017 Procedure Pass Main Operating Room [address] [place], [place] [id number] Social History Tobacco Use Types Packs/Day Years [...]
--- OUTSIDE RECORDS SUMMARY | 2017-08-27 10:13 | XMS REPORT | Encounter Summary ---
Author Author [facility] Organization [facility] Address Unknown Phone Unavailable Care Team Providers Care Student Services Representative Name Role Phone PCP Unavailable Encounter Details Date Type Department Care Team Description 07/23/2017 Prep for Case ADMITTING Bradley Guan MD [address] [facility]. [address] [place] [address] [address] [place] [address] [phone] Social History Tobacco Use Types Packs/Day Years [...]
--- OUTSIDE RECORDS SUMMARY | 2017-08-27 10:13 | XMS REPORT | Encounter Summary ---
Author Author [facility] Organization [facility] Address Unknown Phone Unavailable Care Team Providers Care Material Inspector Name Role Phone PCP Unavailable Encounter Details Date Type Department Care Team Description 07/17/2017 [facility] Tru[facility] Guan MD Malignant neoplasm of Encounter [address] bladder, [place] [address] [address] ([facility]) [place] [address] [phone] Social History Tobacco Use Types Packs/Day Years Used Date Current Every Day Smoker Cigarettes 1 50 Smokeless Tobacco: Never Used Alcohol Use Drinks/Week oz/Week Comments No 0 Standard 0.0 drinks or equivalent Sex Assigned at Date Recorded Not on file as of this encounter Medications at Time of Discharge Medication Sig. Disp. Refills Start Date End Date calcium carbonate Take 1,250 mg by mouth (OS-DANNIE) 1250 mg tablet daily. ferrous sulfate [...] mg by mouth 50 mg tablet daily. solifenacin(+) (VESICARE) Take 10 mg by mouth 10 mg tablet daily. as of this encounter Plan of Treatment Not on fileas of this encounter Results * OUTSIDE PATHOLOGY CONSULT (07/17/2017 4:22 PM) Component Value Ref Range PATHOLOGY REPORT [facility] [email or web address] Charissa Sesay MD, PhD, Director of Anatomic Pathology Department of Pathology and Laboratory Medicine [address] [place] [id number] Surgical Pathology Office: [phone] PATHOLOGY CONSULTATION NAME: ZAIDA DEJESUS SURG PATH #: [id number] MR #: [id number] ALT ID #: LOCATION: UROL DATE OF PROCEDURE: 07/17/2017 AGE: 71 SEX: F DATE RECEIVED: 07/17/2017 : 1945 TIME RECEIVED: 16:22 PHYSICIAN: TRUONG GUAN DATE OF REPORT: 07/20/2017 COPY TO: DATE OF PRINTIN07/20/2017 ################################################## ###################### Final Diagnosis: A. Outside case [id number] (Date Collected: 07/01/2017) Soft tissue, "lymph node, [...] material indicated in this report. +++ +++ matthew/07/17/2017 ################################################## ###################### Material Received: A: Outside Slides x3 [id number], [facility] [place], Attn: Technical Secretaries, [address] [place] [address], [place] [address] History: 71-year-old female with a clinical history of bladder cancer. Gross Description: A. Received are three (3) outside slides labeled "[id number]", and a properly identified surgical pathology report from [facility] [place], Attn: Technical Secretaries, [address] [place] [address], [place] [address]. ; . januaryj/07/17/2017 If immunohistochemical stains and/or in situ hybridization are cited in this report, the performance characteristics were determined by the Department of Pathology and Laboratory Medicine of the [facility] ([employer]) in compliance with CLIA'88 regulations. [...] of Pathology and Laboratory Medicine of the [facility]. It has not been cleared or approved by the FDA. The FDA has determined that such clearance or approval is not necessary. Specimen Performing Laboratory [facility] RESULTS in this encounter Visit Diagnoses Not on filein this encounter Admitting Diagnoses Diagnosis Malignant neoplasm of bladder, unspecified (HCC) Malignant neoplasm of bladder, unspecified in this encounter
--- OUTSIDE RECORDS SUMMARY | 2017-08-27 10:14 | XMS REPORT | Encounter Summary ---
Author Author [facility] Organization [facility] Address Unknown Phone Unavailable Care Team Providers Care Manager State Name Role Phone PCP Unavailable Reason for Visit * Reason Comments Bladder Cancer Encounter Details Date Type Department Care Team Description 07/17/2017 Office Visit [facility] Bradley Guan MD Malignant neoplasm of Physicians - Urology [address] overlapping sites of 2ND FLOOR POD A [place] [address] bladder (HCC) [address] [place] [address] OFFICE BLDG [phone] [place] [address] Social History Tobacco Use Types Packs/Day Years Used Date Current Every Day Smoker Cigarettes 1 50 Smokeless Tobacco: Never Used Alcohol Use Drinks/Week oz/Week Comments No 0 Standard 0.0 drinks or equivalent Sex Assigned at Date Recorded Not on file as of this encounter Last Filed Vital Signs Vital Sign Reading Time Taken Blood Pressure 138/71 07/17/2017 9:28 AM CDT Pulse 93 07/17/2017 9:28 AM CDT Temperature - - Respiratory Rate - - Oxygen Saturation - - Inhaled Oxygen - - Concentration Weight 93.7 kg (206 lb 9.6 oz) 07/17/2017 9:28 AM CDT Height 177.8 cm (5' 10") 07/17/2017 9:28 AM CDT Body Mass Index 29.64 07/17/2017 9:28 AM CDT in this encounter Instructions * Patient Instructions - Marta Martinez LPN - 07/17/2017 9:15 AM CDT Formatting of this note may be different from the original. Surgical Procedure: excision bx of right node Date of Surgery: 07-27-17 Arrival Time at the Admission Office (Main Lobby): Will call To ensure that your surgery can proceed without delay, you will be contacted by a phone triage nurse from the Preoperative Assessment [facility] (PAC) to complete this process. If you have not been contacted in (3) business days, please call . Please review the information given to you by your surgeon. You will be called by the surgery staff with your arrival time after 2:30 PM the business day prior to surgery with arrival time confirmation. If you have not heard from them, please call to confirm your arrival time. Call if calling after 4:30 PM. Do not drink alcohol within 24 hours of surgery. Please do not eat or drink anything after midnight. No gum, mints, hard candy or chewing tobacco allowed after midnight before surgery. You may brush your teeth but be sure to rinse and spit. Please shower with an over the counter antibacterial soap the evening before or the morning of surgery. If your surgery is scheduled as an outpatient, you must arrange to have someone drive you home and have someone with you 24 hours after anesthesia. Your Physicians Name: Dr. Quinn Luther Administrative Non-Medical Questions -- Office Your Nurses Name: Marta Martinez LPN Medical Questions -- Office For emergencies during evenings nights, weekends and holidays, contact the Urology Resident service station helper at [phone]. General Perioperative Medication Instructions Guidelines: Triage Nurse Recommended Times to STOP PRIOR TO SURGERY : 1. 14 Days: Herbal supplements, vitamins, and natural products including: Vitamin C, B Vitamins (unless complex), Vitamin D, Iron, Potassium DO NOT need to be stopped Black Cohosh Echinacea Fish oil Garlic Gingko biloba Ginseng Kava Multivitamin Red Yeast Rice CHUN-e Saw Kodiak [place] Wort Turmeric Valerian root Vitamin E 2. Anti-inflammatory pain medications (NSAIDs) includin days: Diclofenac (Voltaren) Indomethacin (Indocin) Nabumetone Diflunisal Ketoprofen Naproxen (Aleve) Etodolac Ketorolac (Toradol) Piroxicam (Feldene) Flurbiprofen Meloxicam (Mobic) 24 hours: Ibuprofen (Advil, Motrin) Do NOT Take on Day of Surgery: 1. Bisphosphonates (Osteoporosis meds) 2. Cardiac Medications 3. Oral Diabetic Medications 4. Cholesterol agents (non-statin) 5. Potassium and iron supplements 6. Prescription topical products Patients taking medications in the following medications classes should receive instructions from a pharmacist: 1. Anticoagulants Apixaban (Eliquis) Dabigatran (Pradaxa) Dalteparin (Fragmin) Edoxaban (Savaysa) Enoxaparin (Lovenox) Fondaparinux (Arixtra) Heparin Pentoxifylline (Trental) Rivaroxaban (Xarelto) Warfarin (Coumadin, Jantoven) 2. Antiplatelets Aspirin Aspirin/Dipyridamole (Aggrenox) Cilostazol (Pletal) Clopidogrel (Plavix) Dipyridamole (Persantine) Prasugrel (Effient) Ticlodipine Ticagrelor (Brilinta) 3. Antiretrovirals 4. Immunosuppressants 5. Insulins 6. MAO Inhibitors 7. Pulmonary Hypertension NOTE: These lists are not inclusive. Please contact the PAC Pharmacist with any questions. in this encounter Progress Notes * Bradley Guan MD - 07/17/2017 9:15 AM CDT Formatting of this note may be different from the original. Date of Service: 07/17/2017 Subjective: Zaida Dejesus is a 71 y.o. female. History [...] infection Past Surgical History: Procedure Laterality Date NC CYSTOURETHROSCOPY W/DEST &/RMVL MED BLADDER ALEC 01/05/2014 NC CYSTOURETHROSCOPY W/DEST &/RMVL MED BLADDER ALEC N/A 02/28/2016 CYSTOSCOPY WITH TRANSURETHRAL RESECTION BLADDER TUMOR, BLUE LIGHT CYSTOSCOPY AND BILATERAL RETROGRADE PYELOGRAMS performed by Bradley Guan MD at Main OR/ Periop NC CYSTOURETHROSCOPY W/DEST &/RMVL MED BLADDER ALEC N/A 01/26/2017 BLUE LIGHT CYSTOSCOPY WITH TRANSURETHRAL RESECTION OF BLADDER TUMOR, BILATERAL RETROGRADE PYLEOGRAM, AND RIGHT URETEROSCOPY performed by Bradley Guan MD at Main OR/Periop BLADDER TUMOR EXCISION [...] Plan: Problem Bladder Cancer (Hcc) Followed in [place] since 2007 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 I reviewed that bladder cancer metastatic to the inguinal nodes is an unusual finding given previous negative cystoscopy and TURBTs. We reviewed possibility of urothelial cancer in the urethra. I reviewed EUA, cystoscopy, possible TURBT or urethral tumor. We will also perform exicisional biopsy of inguinal node/ in this encounter Plan of Treatment Not on fileas of this encounter Visit Diagnoses Diagnosis Malignant neoplasm of overlapping sites of bladder (HCC) Malignant neoplasm of other specified sites of bladder in this encounter
--- OUTSIDE RECORDS SUMMARY | 2017-08-27 10:15 | XMS REPORT | Encounter Summary ---
Author Author [facility] Organization [facility] Address Unknown Phone Unavailable Care Team Providers Care Personnel Counselor Name Role Phone PCP Unavailable Encounter Details Date Type Department Care Team Description 07/10/2017 Ancillary Rad Outpatient, Radiologist Diagnosis unknown Orders [address] [place] [address] Social History Tobacco Use Types Packs/Day Years Used Date Current Every Day Smoker Cigarettes 1 50 Smokeless Tobacco: Never Used Alcohol Use Drinks/Week oz/Week Comments No 0 Standard 0.0 drinks or equivalent Sex Assigned at Date Recorded Not on file as of this encounter Plan of Treatment Not on fileas of this encounter Results * US MISC EXTERNAL IMAGING (07/01/2017) Narrative This order has been auto finalized and does not contain a result. * CT CHEST/ABD/PEL EXTERNAL IMAGING (06/25/2017) Narrative This order has been auto finalized and does not contain a result. in this encounter Visit Diagnoses Diagnosis Diagnosis unknown Other unknown and unspecified cause of morbidity or mortality in this encounter
--- OUTSIDE RECORDS SUMMARY | 2017-08-27 10:15 | XMS REPORT | Encounter Summary ---
Author Author [facility] Organization [facility] Address Unknown Phone Unavailable Care Team Providers Care Commodity Analyst Name Role Phone PCP Unavailable Encounter Details Date Type Department Care Team Description 07/01/2017 Hospital [facility] Encounter Hospital Radiology [address] [place] [address] Social History Tobacco Use Types [...] on fileas of this encounter Results * [facility] EXTERNAL IMAGING (07/01/2017) Narrative This order has been auto finalized and does not contain a result. in this encounter Visit Diagnoses Diagnosis Diagnosis unknown Other unknown and unspecified cause of morbidity or mortality in this encounter
--- OUTSIDE RECORDS SUMMARY | 2017-08-27 10:18 | XMS REPORT | Encounter Summary ---
Author Author [facility] Organization [facility] Address Unknown Phone Unavailable Care Team Providers Care Die Cast Operator Name Role Phone PCP Unavailable Encounter Details Date Type Department Care Team Description 06/25/2017 Hospital [facility] Encounter Hospital Radiology [address] [place] [address] Social History Tobacco Use Types [...] fileas of this encounter Results * CT CHEST/ABD/PEL EXTERNAL IMAGING (06/25/2017) Narrative This order has been auto finalized and does not contain a result. in this encounter Visit Diagnoses Diagnosis Diagnosis unknown Other unknown and unspecified cause of morbidity or mortality in this encounter
[2017-08-27] MEDS ORDERED: ceFAZolin 1,000 MG (ANCEF) VIAL ONE (10:25)
[2017-08-27] MEDS ORDERED: NS (IVPB) 50 ML ONE (10:25)
[2017-08-27] MEDS ORDERED: ceFAZolin 1 GM/NS 50 ML IVPB IV ONE ×2 (10:45)
[2017-08-27] MEDS ORDERED: LACTATED RINGERS 1,000 ML IV PRN (11:00)
--- NOTE | 2017-08-27 11:21 | Progress Note-Pre Operative ---
Pre-Operative Progress Note H&P Reviewed The H&P was reviewed, patient examined and no changes noted. Date Seen by Provider: Aug 27, 2017 Time Seen by Provider: 11:20 Date H&P Reviewed: Aug 27, 2017 Time H&P Reviewed: 11:20 Pre-Operative Diagnosis: metastatic bladder cancer BENJAMIN GOFF MD Aug 27, 2017 11:20 am
[2017-08-27] MEDS ORDERED: ONDANSETRON 4 MG/2 ML (SDV) Z0FRAN IVP PRN ×2 (11:30→14:45)
[2017-08-27] MEDS ORDERED: morphine INJ 10 MG/ML 1ML (SYR OR VIAL) IVP PRN ×2 (11:30→14:45)
[2017-08-27] MEDS ORDERED: ACETAMINOPHEN 325 MG TABLET/CAPLET (TYLENOL) PO PRN (11:30)
[2017-08-27] MEDS ORDERED: HYDROcodone/APAP 5 MG/325 MG (LORTAB) TAB PO ONE (11:30)
[2017-08-27 11:35] VITALS: BP 105/41
[2017-08-27] MEDS ORDERED: PROPOFOL INJECTION 50 ML IV ONE (12:36)
[2017-08-27] MEDS ORDERED: fentaNYL INJECTION 100 MCG/2 ML AMP ONE (12:37)
[2017-08-27] MEDS ORDERED: MIDAZOLAM 2 MG/2 ML (VERSED) VIAL ONE (12:37)
[2017-08-27] MEDS ORDERED: KETAMINE HCL 100 MG/ML 5 ML VIAL ONE (12:50)
[2017-08-27] MEDS ORDERED: 0.9% SODIUM CHLORIDE PF INJ 20 ML VIAL ONE (12:59)
[2017-08-27] MEDS ORDERED: BUP/EPI 0.5% 1:200,000 (MARCAINE) 10ML VIAL IJ ONE (12:59)
[2017-08-27] MEDS ORDERED: HEParin (CENTRAL IV FLUSH) 500 UNIT/5 ML SYR ONE (12:59)
[2017-08-27] MEDS ORDERED: LIDOCAINE/EPI 1%-1:200,000 (XYLOCAINE) 10 ML VIAL ONE (13:04)
[2017-08-27] MEDS ORDERED: HYDR-3816 PO (14:36)
--- NOTE | 2017-08-27 14:37 | Discharge Inst-Surgical ---
D/C Lap Instructions-SHELL New, Converted, or Re-Newed RX: RX on Chart Follow Up PRN Activity as tolerated Regular Diet Symptoms to Report: Fever over 101 degree F, Nausea/Vomiting Infection Signs and Symptoms to report: Increased redness, Foul odor of wound, Increased drainage Bathing instructions: May shower Operative Area Clean/Dry; Keep incision clean/dry If any problems/questions: Contact your physician or go to Emergency Room BENJAMIN GOFF MD Aug 27, 2017 14:37
--- NOTE | 2017-08-27 14:40 | Progress Note-Post Operative ---
Post-Operative Progess Note Surgeon (s)/Public Information Coordinator (s) Surgeon BENJAMIN GOFF MD Public Information Coordinator: frank severino MERCHANDISE SUPPORT ASSOCIATE Pre-Operative Diagnosis metastatic bladder cancer Post-Operative Diagnosis same Procedure & Operative Findings Date of Procedure 08/27/17 Procedure Performed/Findings left subclavian groshong implantable catheter under flouroscopy. Anesthesia Type MAC with local Estimated Blood Loss Estimated blood loss (mL): minimal Specimens/Packing Specimens Removed none BENJAMIN GOFF MD Aug 27, 2017 2:40 pm
--- NOTE | 2017-08-27 15:01 | Diagnostic Imaging Report ---
INDICATION: Post left Groshong catheter placement. Frontal chest obtained at 02:48 p.m. and compared with 04/05/2017. The heart is mildly enlarged. Mediastinal silhouette is unremarkable. There is a new port over the left chest wall with catheter tip in the mid upper SVC. There is no pneumothorax following port placement. IMPRESSION: Port placement as described above with no acute infiltrate, pneumothorax, or pleural fluid. Dictated by: Dictated on workstation # [id number]
[2017-08-27 15:10] VITALS: BP 124/47
[2017-08-27 15:40] VITALS: BP 124/47
[2017-08-27 16:05] VITALS: BP 124/47
--- NOTE | 2017-08-27 18:08 | OPERATIVE REPORT ---
DATE OF SERVICE: 08/27/2017 ATTENDING PRIMARY CARE PHYSICIAN: Dr. Claudia Francisco. PREOPERATIVE DIAGNOSIS: Metastatic bladder cancer. POSTOPERATIVE DIAGNOSIS: Metastatic bladder cancer. PROCEDURE: Placement of left subclavian Groshong implantable catheter under fluoroscopy. SURGEON: Dr. Nelson. AUTOMOBILE OR TRUCK RENTAL DISPATCHER: Ac Narayanan APRN. ANESTHESIA: Monitored anesthesia care with local. ESTIMATED BLOOD LOSS: Minimal. FINDINGS: Catheter tip at superior vena cava - right atrial junction. DISPOSITION: The patient tolerated the procedure well. The patient is a 71-year-old female with history of bladder cancer diagnosed around 2007. She underwent a cystoscopy, resection of the lesion as well as BCG chemotherapy. She reports that she did well; however, I did notice a mass in the right groin. This lesion has been around for some amount of time. This was biopsied and found to be consistent with metastatic bladder cancer. She has been seen by oncology and will undergo chemotherapy. She will need Groshong implantable catheter for the chemotherapy as well as frequent blood draws. DESCRIPTION OF PROCEDURE: The patient was brought to the operating room, laid supine on the table. After adequate IV pain and sedating medications and conscious sedation, monitored anesthesia care, the neck and chest prepped and draped in standard surgical fashion. 0.5% Marcaine with epinephrine was then used to anesthetize the overlying skin in the left subclavian region. The left subclavian vein was then cannulated with drawing of venous blood. The guidewire was then inserted under fluoroscopy. The cannulated needle removed and a skin incision made using a 15 blade. The dilator and sheath were then introduced. The guidewire and dilator were then removed and the Groshong implantable catheter was then placed under direct visualization using fluoroscopy. The catheter was placed to the tip, was at the superior vena cava - right atrial junction. The sheath was then removed. The inner wire was then removed and the catheter cut down to size from the port placed onto the catheter. The subcutaneous reservoir was then created using electrocautery as well as blunt dissection overlying the anterior pectoralis fascia as well as the subcutaneous fat. The port was then placed into this reservoir and sutured to the anterior pectoralis fascia using interrupted 3-0 Vicryl sutures. The subcutaneous tissue was reapproximated using 3-0 Vicryl interrupted sutures. Skin was closed using 4-0 Monocryl running subcuticular suture. The wound was then cleaned and covered with Dermabond. The port was accessed with the Fregoso needle with venous blood drawn and heparinized saline pushed in without any resistance. The patient tolerated the procedure well. We will get a post-procedure chest x-ray. Once the placement is confirmed by chest x-ray, the catheter may be accessed and used at any time. Job ID: [id number] DocumentID: [id number] Dictated Date: 08/27/2017 14:38:03 Mini Shifter Date: 08/27/2017 18:07:21 Dictated By: BENJAMIN NELSON MD [facility]
== END 2017-08-27 16:05 | disposition home or self-care (01) ==
LOC: SDC 10:03
PROVIDERS: ATTEND Surgery
DX: C77.4 Secondary and unspecified malignant neoplasm of inguinal and lower limb lymph nodes (principal); Z85.51 Personal history of malignant neoplasm of bladder; I48.91 Unspecified atrial fibrillation; I10 Essential (primary) hypertension; D64.9 Anemia, unspecified; F17.210 Nicotine dependence, cigarettes, uncomplicated; Z79.899 Other long term (current) drug therapy; Z96.652 Presence of left artificial knee joint
CPT/HCPCS: 71010; 87081

== ENCOUNTER 2017-11-11 09:19 | Outpatient (RCR) | payer MEDICARE, OTHER ==
[2017-09-09 14:05] LABS: CREATININE SERUM 0.81 MG/DL (0.60-1.30)
[2017-09-16 14:13] LABS: BASOPHILS % (AUTO) 0 % (0-10); EOSINOPHILS # (AUTO) 0.2 10^3/uL (0.0-0.3); EOSINOPHILS % (AUTO) 2 % (0-10); HEMATOCRIT 33 % (35-52); HEMOGLOBIN 10.6 G/DL (11.5-16.0); LYMPHOCYTES # (AUTO) 1.7 X 10^3 (1.0-4.0); LYMPHOCYTES % (AUTO) 17 % (12-44); MEAN CORPUSCULAR HEMOGLOBIN 25 PG (25-34); MEAN CORPUSCULAR HGB CONC 32 G/DL (32-36); MEAN CORPUSCULAR VOLUME 78 FL (80-99); MEAN PLATELET VOLUME 8.8 FL (7.4-10.4); MONOCYTES # (AUTO) 0.9 X 10^3 (0.0-1.0); MONOCYTES % (AUTO) 8 % (0-12); NEUTROPHILS # (AUTO) 7.4 X 10^3 (1.8-7.8); NEUTROPHILS % (AUTO) 73 % (42-75); PLATELET COUNT 323 10^3/uL (130-400); RED BLOOD COUNT 4.24 10^6/uL (4.35-5.85); RED CELL DISTRIBUTION WIDTH 14.8 % (10.0-14.5); WHITE BLOOD COUNT 10.2 10^3/uL (4.3-11.0)
[2017-09-16 14:35] LABS: ALANINE AMINOTRANSFERASE < 6 U/L (0-55); ALBUMIN 3.5 GM/DL (3.2-4.5); ALKALINE PHOSPHATASE 85 U/L (40-136); BILIRUBIN,TOTAL 0.4 MG/DL (0.1-1.0); BUN/CREATININE RATIO 15; CALCIUM 8.9 MG/DL (8.5-10.1); CARBON DIOXIDE 28 MMOL/L (21-32); CHLORIDE 98 MMOL/L (98-107); CREATININE SERUM 1.06 MG/DL (0.60-1.30); GFR ESTIMATED 51; GLUCOSE 118 MG/DL (70-105); POTASSIUM 3.7 MMOL/L (3.6-5.0); SODIUM 137 MMOL/L (135-145); TOTAL PROTEIN 6.9 GM/DL (6.4-8.2)
[2017-09-29 10:47] LABS: BASOPHILS % (AUTO) 0 % (0-10); EOSINOPHILS # (AUTO) 0.1 10^3/uL (0.0-0.3); EOSINOPHILS % (AUTO) 1 % (0-10); HEMATOCRIT 29 % (35-52); HEMOGLOBIN 9.4 G/DL (11.5-16.0); LYMPHOCYTES # (AUTO) 1.4 X 10^3 (1.0-4.0); LYMPHOCYTES % (AUTO) 11 % (12-44); MEAN CORPUSCULAR HEMOGLOBIN 26 PG (25-34); MEAN CORPUSCULAR HGB CONC 33 G/DL (32-36); MEAN CORPUSCULAR VOLUME 79 FL (80-99); MEAN PLATELET VOLUME 9.1 FL (7.4-10.4); MONOCYTES # (AUTO) 1.1 X 10^3 (0.0-1.0); MONOCYTES % (AUTO) 9 % (0-12); NEUTROPHILS # (AUTO) 9.7 X 10^3 (1.8-7.8); NEUTROPHILS % (AUTO) 79 % (42-75); PLATELET COUNT 288 10^3/uL (130-400); RED BLOOD COUNT 3.66 10^6/uL (4.35-5.85); RED CELL DISTRIBUTION WIDTH 15.2 % (10.0-14.5); WHITE BLOOD COUNT 12.3 10^3/uL (4.3-11.0)
[2017-09-29 11:04] LABS: CALCIUM 8.9 MG/DL (8.5-10.1); CREATININE SERUM 1.07 MG/DL (0.60-1.30); MAGNESIUM 1.3 MG/DL (1.8-2.4); POTASSIUM 3.9 MMOL/L (3.6-5.0)
[2017-09-29 11:05] LABS: SMEAR SCAN COMMENT YES
[2017-10-07 13:15] LABS: BASOPHILS % (AUTO) 0 % (0-10); EOSINOPHILS % (AUTO) 0 % (0-10); HEMATOCRIT 24 % (35-52); HEMOGLOBIN 7.7 G/DL (11.5-16.0); LYMPHOCYTES % (AUTO) 16 % (12-44); MEAN CORPUSCULAR HEMOGLOBIN 25 PG (25-34); MEAN CORPUSCULAR HGB CONC 32 G/DL (32-36); MEAN CORPUSCULAR VOLUME 80 FL (80-99); MEAN PLATELET VOLUME 8.5 FL (7.4-10.4); MONOCYTES # (AUTO) 0.6 X 10^3 (0.0-1.0); MONOCYTES % (AUTO) 9 % (0-12); NEUTROPHILS # (AUTO) 4.8 X 10^3 (1.8-7.8); NEUTROPHILS % (AUTO) 75 % (42-75); PLATELET COUNT 288 10^3/uL (130-400); RED BLOOD COUNT 3.06 10^6/uL (4.35-5.85); WHITE BLOOD COUNT 6.5 10^3/uL (4.3-11.0)
[2017-10-07 13:36] LABS: CALCIUM 8.8 MG/DL (8.5-10.1); CREATININE SERUM 1.35 MG/DL (0.60-1.30); MAGNESIUM 1.4 MG/DL (1.8-2.4); POTASSIUM 4.2 MMOL/L (3.6-5.0)
[2017-10-07 16:30] LABS: BILIRUBIN,URINE NEGATIVE (NEGATIVE); CLARITY,URINE VERY CLOUDY; COLOR,URINE YELLOW; GLUCOSE, URINE (UA) NEGATIVE (NEGATIVE); KETONES,URINE NEGATIVE (NEGATIVE); LEUKOCYTE ESTERASE ,URINE 3+ (NEGATIVE); NITRITE,URINE POSITIVE (NEGATIVE); PH,URINE 6 (5-9); PROTEIN,URINE 3+ (NEGATIVE); UROBILINOGEN,URINE NORMAL (NORMAL)
[2017-10-07 16:39] LABS: BACTERIA,URINE LARGE /HPF; WBC,URINE >100 /HPF
[2017-10-14 09:36] LABS: BASOPHILS % (AUTO) 0 % (0-10); EOSINOPHILS % (AUTO) 0 % (0-10); HEMATOCRIT 25 % (35-52); HEMOGLOBIN 7.7 G/DL (11.5-16.0); LYMPHOCYTES # (AUTO) 1.1 X 10^3 (1.0-4.0); LYMPHOCYTES % (AUTO) 19 % (12-44); MEAN CORPUSCULAR HEMOGLOBIN 26 PG (25-34); MEAN CORPUSCULAR HGB CONC 31 G/DL (32-36); MEAN CORPUSCULAR VOLUME 82 FL (80-99); MEAN PLATELET VOLUME 8.1 FL (7.4-10.4); MONOCYTES # (AUTO) 0.4 X 10^3 (0.0-1.0); MONOCYTES % (AUTO) 7 % (0-12); NEUTROPHILS % (AUTO) 73 % (42-75); PLATELET COUNT 231 10^3/uL (130-400); RED BLOOD COUNT 3.01 10^6/uL (4.35-5.85); RED CELL DISTRIBUTION WIDTH 17.3 % (10.0-14.5); WHITE BLOOD COUNT 5.5 10^3/uL (4.3-11.0)
[2017-10-14 10:00] LABS: ALBUMIN 3.4 GM/DL (3.2-4.5); BILIRUBIN,TOTAL 0.3 MG/DL (0.1-1.0); CALCIUM 8.9 MG/DL (8.5-10.1); CREATININE SERUM 1.44 MG/DL (0.60-1.30); MAGNESIUM 1.4 MG/DL (1.8-2.4); POTASSIUM 4.4 MMOL/L (3.6-5.0)
[2017-10-14 10:02] LABS: BILIRUBIN,URINE NEGATIVE (NEGATIVE); CLARITY,URINE BLOODY; COLOR,URINE AMBER; GLUCOSE, URINE (UA) NEGATIVE (NEGATIVE); KETONES,URINE NEGATIVE (NEGATIVE); LEUKOCYTE ESTERASE ,URINE 3+ (NEGATIVE); NITRITE,URINE NEGATIVE (NEGATIVE); PH,URINE 7 (5-9); PROTEIN,URINE 3+ (NEGATIVE); UROBILINOGEN,URINE NORMAL (NORMAL)
[2017-10-14 10:15] LABS: BACTERIA,URINE TRACE /HPF; RBC,URINE TNTC /HPF
[2017-10-21 08:52] LABS: HEMATOCRIT 25 % (35-52); HEMOGLOBIN 7.8 G/DL (11.5-16.0); WHITE BLOOD COUNT 4.2 10^3/uL (4.3-11.0)
[2017-10-21 08:53] LABS: BASOPHILS % (AUTO) 1 % (0-10); EOSINOPHILS # (AUTO) 0.1 10^3/uL (0.0-0.3); EOSINOPHILS % (AUTO) 1 % (0-10); LYMPHOCYTES # (AUTO) 0.8 X 10^3 (1.0-4.0); LYMPHOCYTES % (AUTO) 18 % (12-44); MEAN CORPUSCULAR HEMOGLOBIN 28 PG (25-34); MEAN CORPUSCULAR HGB CONC 32 G/DL (32-36); MEAN CORPUSCULAR VOLUME 88 FL (80-99); MEAN PLATELET VOLUME 8.9 FL (7.4-10.4); MONOCYTES # (AUTO) 0.4 X 10^3 (0.0-1.0); MONOCYTES % (AUTO) 9 % (0-12); NEUTROPHILS % (AUTO) 71 % (42-75); PLATELET COUNT 115 10^3/uL (130-400); RED CELL DISTRIBUTION WIDTH 23.2 % (10.0-14.5)
[2017-10-21 09:10] LABS: ALBUMIN 3.3 GM/DL (3.2-4.5); BILIRUBIN,TOTAL 0.4 MG/DL (0.1-1.0); CALCIUM 8.6 MG/DL (8.5-10.1); CREATININE SERUM 1.39 MG/DL (0.60-1.30); MAGNESIUM 1.6 MG/DL (1.8-2.4); TOTAL PROTEIN 5.7 GM/DL (6.4-8.2)
[2017-10-28 08:26] LABS: BASOPHILS % (AUTO) 0 % (0-10); EOSINOPHILS # (AUTO) 0.1 10^3/uL (0.0-0.3); EOSINOPHILS % (AUTO) 1 % (0-10); HEMATOCRIT 24 % (35-52); HEMOGLOBIN 7.5 G/DL (11.5-16.0); LYMPHOCYTES # (AUTO) 1.2 X 10^3 (1.0-4.0); LYMPHOCYTES % (AUTO) 29 % (12-44); MEAN CORPUSCULAR HEMOGLOBIN 29 PG (25-34); MEAN CORPUSCULAR HGB CONC 31 G/DL (32-36); MEAN CORPUSCULAR VOLUME 92 FL (80-99); MEAN PLATELET VOLUME 8.6 FL (7.4-10.4); MONOCYTES # (AUTO) 0.4 X 10^3 (0.0-1.0); MONOCYTES % (AUTO) 10 % (0-12); NEUTROPHILS # (AUTO) 2.5 X 10^3 (1.8-7.8); NEUTROPHILS % (AUTO) 60 % (42-75); PLATELET COUNT 144 10^3/uL (130-400); RED BLOOD COUNT 2.62 10^6/uL (4.35-5.85); RED CELL DISTRIBUTION WIDTH 25.3 % (10.0-14.5); WHITE BLOOD COUNT 4.2 10^3/uL (4.3-11.0)
[2017-10-28 08:40] LABS: CALCIUM 8.6 MG/DL (8.5-10.1); CREATININE SERUM 1.85 MG/DL (0.60-1.30); MAGNESIUM 1.9 MG/DL (1.8-2.4)
[2017-11-03 09:44] LABS: BASOPHILS % (AUTO) 1 % (0-10); EOSINOPHILS # (AUTO) 0.1 10^3/uL (0.0-0.3); EOSINOPHILS % (AUTO) 1 % (0-10); HEMATOCRIT 25 % (35-52); HEMOGLOBIN 7.7 G/DL (11.5-16.0); LYMPHOCYTES # (AUTO) 0.9 X 10^3 (1.0-4.0); LYMPHOCYTES % (AUTO) 18 % (12-44); MEAN CORPUSCULAR HEMOGLOBIN 30 PG (25-34); MEAN CORPUSCULAR HGB CONC 31 G/DL (32-36); MEAN CORPUSCULAR VOLUME 98 FL (80-99); MEAN PLATELET VOLUME 8.5 FL (7.4-10.4); MONOCYTES # (AUTO) 0.4 X 10^3 (0.0-1.0); MONOCYTES % (AUTO) 7 % (0-12); NEUTROPHILS # (AUTO) 3.9 X 10^3 (1.8-7.8); NEUTROPHILS % (AUTO) 74 % (42-75); PLATELET COUNT 151 10^3/uL (130-400); RED BLOOD COUNT 2.55 10^6/uL (4.35-5.85); RED CELL DISTRIBUTION WIDTH 27.2 % (10.0-14.5); WHITE BLOOD COUNT 5.3 10^3/uL (4.3-11.0)
[2017-11-03 10:04] LABS: ALBUMIN 3.4 GM/DL (3.2-4.5); BILIRUBIN,TOTAL 0.4 MG/DL (0.1-1.0); CALCIUM 8.9 MG/DL (8.5-10.1); CREATININE SERUM 1.79 MG/DL (0.60-1.30); MAGNESIUM 1.9 MG/DL (1.8-2.4); POTASSIUM 4.2 MMOL/L (3.6-5.0); TOTAL PROTEIN 5.8 GM/DL (6.4-8.2)
[~2017-11-11] VITALS: Ht 177.8 cm; Wt 90.3 kg
[~2017-11-11 09:19] MED LIST changes: +ACHD5005 PO; +CISPLATIN IV SCH; -FERR-74 PO; +FERR325T18 PO; +FLU TRIvalent (5 YOA+) 2017-18 (AFLURIA) 0.5 ML IM ONE; +FOSAPREPITANT DIMEGLUMINE 150 MG in NS (IVPB) CANCER CENTER ONLY 150 ML IV SCH; +FUROSEMIDE 40 MG/4 ML INJ (CANCER CTR) ONE; +HYDR-34 PO; -HYDR-3812 PO; +LOSA1TAB23 PO; -LOSA1TAB70 PO; +MAGNESIUM SULFATE IV SCH; +NS IV 1000 ML (CANCER CTR) IV SCH; +NS IV SCH; +PALONOSETRON 0.25 MG, DEXAMETHASONE 10 MG/NS 50 ML IVPB IV PRN; +PALONOSETRON HCL 0.25 MG, DEXAMETHASONE PF INJ (CANCER C 10 MG in D5W 50 ML IV(CANCER C... IV PRN; +PALONOSETRON HCL 0.25 MG, DEXAMETHASONE PF INJ (CANCER C 10 MG in NS (IVPB) CANCER CENT... IV PRN
== END 2017-11-12 | disposition home or self-care (01) ==
LOC: ONC 09:19
PROVIDERS: ATTEND Internal Medicine Hematology & Oncology
DX: Z51.0 Encounter for antineoplastic radiation therapy (principal); Z51.11 Encounter for antineoplastic chemotherapy; C77.4 Secondary and unspecified malignant neoplasm of inguinal and lower limb lymph nodes; Z85.51 Personal history of malignant neoplasm of bladder; R91.8 Other nonspecific abnormal finding of lung field; N39.0 Urinary tract infection, site not specified; R60.1 Generalized edema; N28.9 Disorder of kidney and ureter, unspecified; D50.9 Iron deficiency anemia, unspecified; I10 Essential (primary) hypertension; I48.91 Unspecified atrial fibrillation; F17.210 Nicotine dependence, cigarettes, uncomplicated; B96.1 Klebsiella pneumoniae [K. pneumoniae] as the cause of diseases classified elsewhere; Z23 Encounter for immunization; Z79.01 Long term (current) use of anticoagulants; Z79.899 Other long term (current) drug therapy
CPT/HCPCS: 36415; 36591; 77280; 77295; 77300; 77334; 77336; 77402; 77417; 77470; 80048; 80053; 81000; 82565; 83735; 84520; 85025; 87077; 87088; 87186; 90471; 96367; 96372; 96374; 96375; 96413; 99213; 99214

== ENCOUNTER → 2017-12-07 | Outpatient (CLI) | payer MEDICARE, OTHER ==
[~2017-12-07] MED LIST changes: -CISPLATIN IV SCH; -FLU TRIvalent (5 YOA+) 2017-18 (AFLURIA) 0.5 ML IM ONE; -FOSAPREPITANT DIMEGLUMINE 150 MG in NS (IVPB) CANCER CENTER ONLY 150 ML IV SCH; -FUROSEMIDE 40 MG/4 ML INJ (CANCER CTR) ONE; -MAGNESIUM SULFATE IV SCH; -NS IV 1000 ML (CANCER CTR) IV SCH; -NS IV SCH; -PALONOSETRON 0.25 MG, DEXAMETHASONE 10 MG/NS 50 ML IVPB IV PRN; -PALONOSETRON HCL 0.25 MG, DEXAMETHASONE PF INJ (CANCER C 10 MG in D5W 50 ML IV(CANCER C... IV PRN; -PALONOSETRON HCL 0.25 MG, DEXAMETHASONE PF INJ (CANCER C 10 MG in NS (IVPB) CANCER CENT... IV PRN
--- NOTE | 2017-12-07 12:40 | Diagnostic Imaging Report ---
INDICATION: Bladder carcinoma. FINDINGS: The right kidney measures 11.2 x 5.2 x 4.5 cm. The left kidney measures 11.4 x 5.4 x 5.2 cm. The cortical thickness and echogenicity are within normal limits. Multiple right-sided cysts are identified. The largest is in the upper pole laterally measuring 2.2 cm in diameter. There is a cyst in the left kidney measuring approximately 3.1 cm in diameter. There is a small echogenic focus along the periphery of the cyst which may represent a calcification. There is no hydronephrosis identified. Bilateral ureteral jets are visualized in the urinary bladder. IMPRESSION: Bilateral renal cystic disease. No definite solid renal mass is detected. There is no evidence of hydronephrosis. Dictated by: Dictated on workstation # [id number]
== END ==
LOC: RAD 10:10
PROVIDERS: ATTEND Internal Medicine Nephrology
DX: C67.9 Malignant neoplasm of bladder, unspecified (principal); I12.9 Hypertensive chronic kidney disease with stage 1 through stage 4 chronic kidney disease, or unspecified chronic kidney disease; N18.4 Chronic kidney disease, stage 4 (severe); Q61.9 Cystic kidney disease, unspecified; E87.70 Fluid overload, unspecified; D64.9 Anemia, unspecified
CPT/HCPCS: 76770

== ENCOUNTER 2017-12-14 20:30 | Outpatient (CLI) | payer MEDICARE, OTHER | END 2017-12-15 06:30 | disposition home or self-care (01) | LOC: SLEEP 20:30 | PROVIDERS: ATTEND Family Medicine | DX: G47.33 Obstructive sleep apnea (adult) (pediatric) (principal) | CPT/HCPCS: 95811 ==

== ENCOUNTER 2018-02-10 09:51 | Outpatient (RCR) | payer MEDICARE, OTHER ==
[2017-11-18 10:40] LABS: BASOPHILS % (AUTO) 1 % (0-10); EOSINOPHILS # (AUTO) 0.1 10^3/uL (0.0-0.3); EOSINOPHILS % (AUTO) 3 % (0-10); HEMATOCRIT 27 % (35-52); HEMOGLOBIN 8.2 G/DL (11.5-16.0); LYMPHOCYTES # (AUTO) 0.8 X 10^3 (1.0-4.0); LYMPHOCYTES % (AUTO) 17 % (12-44); MEAN CORPUSCULAR HEMOGLOBIN 32 PG (25-34); MEAN CORPUSCULAR HGB CONC 31 G/DL (32-36); MEAN CORPUSCULAR VOLUME 103 FL (80-99); MEAN PLATELET VOLUME 8.7 FL (7.4-10.4); MONOCYTES # (AUTO) 0.7 X 10^3 (0.0-1.0); MONOCYTES % (AUTO) 14 % (0-12); NEUTROPHILS # (AUTO) 3.2 X 10^3 (1.8-7.8); NEUTROPHILS % (AUTO) 66 % (42-75); PLATELET COUNT 184 10^3/uL (130-400); RED BLOOD COUNT 2.58 10^6/uL (4.35-5.85); RED CELL DISTRIBUTION WIDTH 20.1 % (10.0-14.5); WHITE BLOOD COUNT 4.9 10^3/uL (4.3-11.0)
[2017-11-18 10:52] LABS: CREATININE SERUM 1.95 MG/DL (0.60-1.30); POTASSIUM 4.6 MMOL/L (3.6-5.0)
[2017-11-18 10:53] LABS: ALBUMIN 3.5 GM/DL (3.2-4.5); BILIRUBIN,TOTAL 0.6 MG/DL (0.1-1.0); TOTAL PROTEIN 6.2 GM/DL (6.4-8.2)
[2017-12-16 09:43] LABS: BASOPHILS % (AUTO) 1 % (0-10); EOSINOPHILS # (AUTO) 0.2 10^3/uL (0.0-0.3); EOSINOPHILS % (AUTO) 3 % (0-10); HEMATOCRIT 29 % (35-52); HEMOGLOBIN 9.3 G/DL (11.5-16.0); LYMPHOCYTES # (AUTO) 0.7 X 10^3 (1.0-4.0); LYMPHOCYTES % (AUTO) 14 % (12-44); MEAN CORPUSCULAR HEMOGLOBIN 32 PG (25-34); MEAN CORPUSCULAR HGB CONC 32 G/DL (32-36); MEAN CORPUSCULAR VOLUME 98 FL (80-99); MEAN PLATELET VOLUME 8.5 FL (7.4-10.4); MONOCYTES # (AUTO) 0.5 X 10^3 (0.0-1.0); MONOCYTES % (AUTO) 9 % (0-12); NEUTROPHILS % (AUTO) 74 % (42-75); PLATELET COUNT 175 10^3/uL (130-400); RED BLOOD COUNT 2.94 10^6/uL (4.35-5.85); RED CELL DISTRIBUTION WIDTH 13.6 % (10.0-14.5); WHITE BLOOD COUNT 5.4 10^3/uL (4.3-11.0)
[2017-12-16 10:09] LABS: ALBUMIN 3.8 GM/DL (3.2-4.5); BILIRUBIN,TOTAL 0.5 MG/DL (0.1-1.0); CALCIUM 9.3 MG/DL (8.5-10.1); CREATININE SERUM 2.18 MG/DL (0.60-1.30); POTASSIUM 3.6 MMOL/L (3.6-5.0); TOTAL PROTEIN 6.4 GM/DL (6.4-8.2)
== END 2018-02-16 | disposition home or self-care (01) ==
LOC: ONC 09:51
PROVIDERS: ATTEND Internal Medicine Hematology & Oncology
DX: C77.4 Secondary and unspecified malignant neoplasm of inguinal and lower limb lymph nodes (principal); Z85.51 Personal history of malignant neoplasm of bladder; R91.8 Other nonspecific abnormal finding of lung field; N28.9 Disorder of kidney and ureter, unspecified; D50.9 Iron deficiency anemia, unspecified; I10 Essential (primary) hypertension; F17.210 Nicotine dependence, cigarettes, uncomplicated; Z79.899 Other long term (current) drug therapy
CPT/HCPCS: 36591; 80053; 82607; 82728; 82746; 83540; 85025; 96523; 99213

== ENCOUNTER → 2018-04-29 | Outpatient (CLI) | payer MEDICARE, OTHER | LOC: RAD 08:47 | PROVIDERS: ATTEND Family Medicine | DX: R23.0 Cyanosis (principal); Z53.8 Procedure and treatment not carried out for other reasons; M79.604 Pain in right leg; M79.605 Pain in left leg ==

== ENCOUNTER → 2018-05-05 | Outpatient (CLI) | payer MEDICARE, OTHER ==
--- NOTE | 2018-05-05 15:45 | Diagnostic Imaging Report ---
PROCEDURE: CT chest, abdomen, and pelvis without contrast. TECHNIQUE: Multiple contiguous axial images were obtained through the chest, abdomen, and pelvis without the use of intravenous contrast. INDICATION: Bladder cancer. FINDINGS: The previous CT chest, abdomen, and pelvis exam of 02/03/2018 failed to show any sign of an acute abnormality of the abdomen or pelvis. The previous study did show a 4.8 mm nodule in the right lung base and a 9.3 mm nodule in the left lung base. On this exam, the nodule in the left lung base is essentially no different measuring 9.5 mm. The nodular density in the right lung base does not seem to have changed significantly either. In the interval since the prior study, a small patchy area of increased density has developed along the periphery of the right lower lobe. This may be related to mild atelectasis/infiltrate. The lungs are otherwise generally clear. The heart is stable in size. Coronary artery calcifications are again noted. The pericardial effusion noted previously is again evident and does not seem to have changed significantly. There is no mediastinal or hilar adenopathy. The thyroid gland is unremarkable. There is no obvious breast mass. The left-sided port seen previously remains in good position. The sections through the abdomen and pelvis show that the liver, spleen, pancreas, adrenals, aorta, and inferior vena cava are similar in appearance to the prior exam. The gallbladder wall is somewhat indistinct. There is no clear evidence for acute cholecystitis, but if further evaluation is desired, ultrasound would recommended. The cysts involving both kidneys seen previously are also again evident and not significantly changed. In the interval since the prior exam, a nfzwn-dl-hlultpux amount of free fluid has developed in the pelvis. This is of uncertain etiology. The uterus is surgically absent. The bladder is not well distended and consequently difficult to assess. The bladder does not appear to changed significantly since the prior exam. The appendix is not well visualized, but there are no indirect signs of acute appendicitis. The prior study did show some increased density in the subcutaneous fat of the lower abdomen and pelvis. There does seem to be somewhat greater generalized increased density throughout the subcutaneous fat of the abdomen and pelvis on this exam. This finding is of uncertain etiology. The possibility that this is related to anasarca should be considered. The bone windows show no sign of a fracture or of a destructive lesion. IMPRESSION: 1. In the interval since the prior study, a [id number]-qn-mahtcxzi amount of nonspecific free fluid has developed low in the pelvis. This finding is nonspecific. There also seems to be slightly greater increased density in the subcutaneous fat of the abdomen and pelvis. This could be secondary to anasarca. 2. The gallbladder wall is somewhat indistinct. There is no evidence for acute cholecystitis, but if further study is desired, then ultrasound would be recommended. 3. There is no acute abnormality of the abdomen or pelvis noted otherwise. 4. A small patchy area of atelectasis/infiltrate has developed in the right lung base. The overall appearance of the chest is otherwise stable. Dictated by: Dictated on workstation # [id number]
== END ==
LOC: RAD 10:08
PROVIDERS: ATTEND Internal Medicine Hematology & Oncology
DX: C67.9 Malignant neoplasm of bladder, unspecified (principal)
CPT/HCPCS: 71250; 74176

== ENCOUNTER → 2018-05-13 | Outpatient (CLI) | payer MEDICARE, OTHER ==
--- NOTE | 2018-05-13 12:29 | Diagnostic Imaging Report ---
INDICATION: Bilateral leg cyanosis, right leg pain. IMPRESSION: Bilateral lower extremity segmental pressures were obtained. Ankle brachial indices appeared normal bilaterally measuring 1.35 on the right and 1.18 on the left. Dictated by: Dictated on workstation # [id number]
== END ==
LOC: RAD 08:50
PROVIDERS: ATTEND Family Medicine
DX: R23.0 Cyanosis (principal); M79.604 Pain in right leg
CPT/HCPCS: 93922

== ENCOUNTER 2018-06-29 14:11 | Outpatient (RCR) | payer MEDICARE, OTHER | END 2018-07-11 | disposition home or self-care (01) | LOC: ONC 14:11 | PROVIDERS: ATTEND Internal Medicine Hematology & Oncology | DX: C77.4 Secondary and unspecified malignant neoplasm of inguinal and lower limb lymph nodes (principal); Z85.51 Personal history of malignant neoplasm of bladder; R91.8 Other nonspecific abnormal finding of lung field; N28.9 Disorder of kidney and ureter, unspecified; D50.9 Iron deficiency anemia, unspecified; I10 Essential (primary) hypertension; F17.210 Nicotine dependence, cigarettes, uncomplicated; Z79.899 Other long term (current) drug therapy | CPT/HCPCS: 36591; 99213 ==

== ENCOUNTER → 2018-06-29 | Outpatient (CLI) | payer MEDICARE, OTHER ==
[2018-06-29 14:49] LABS: BASOPHILS % (AUTO) 0 % (0-10); EOSINOPHILS # (AUTO) 0.1 10^3/uL (0.0-0.3); EOSINOPHILS % (AUTO) 3 % (0-10); HEMATOCRIT 29 % (35-52); HEMOGLOBIN 9.3 G/DL (11.5-16.0); LYMPHOCYTES # (AUTO) 0.7 X 10^3 (1.0-4.0); LYMPHOCYTES % (AUTO) 13 % (12-44); MEAN CORPUSCULAR HEMOGLOBIN 30 PG (25-34); MEAN CORPUSCULAR HGB CONC 32 G/DL (32-36); MEAN CORPUSCULAR VOLUME 94 FL (80-99); MONOCYTES # (AUTO) 0.6 X 10^3 (0.0-1.0); MONOCYTES % (AUTO) 10 % (0-12); NEUTROPHILS # (AUTO) 4.2 X 10^3 (1.8-7.8); NEUTROPHILS % (AUTO) 74 % (42-75); PLATELET COUNT 205 10^3/uL (130-400); RED BLOOD COUNT 3.08 10^6/uL (4.35-5.85); RED CELL DISTRIBUTION WIDTH 14.8 % (10.0-14.5); WHITE BLOOD COUNT 5.6 10^3/uL (4.3-11.0)
[2018-06-29 15:10] LABS: BILIRUBIN,URINE NEGATIVE (NEGATIVE); CLARITY,URINE VERY CLOUDY; COLOR,URINE AMBER; GLUCOSE, URINE (UA) NEGATIVE (NEGATIVE); KETONES,URINE NEGATIVE (NEGATIVE); LEUKOCYTE ESTERASE ,URINE 3+ (NEGATIVE); NITRITE,URINE NEGATIVE (NEGATIVE); PH,URINE 6.5 (5-9); PROTEIN,URINE 3+ (NEGATIVE); UROBILINOGEN,URINE NORMAL (NORMAL)
[2018-06-29 15:11] LABS: BACTERIA,URINE LARGE /HPF; RBC,URINE 0-2 /HPF; SQUAMOUS EPITHELIAL CELL,UR 0-2 /HPF
[2018-06-29 15:12] LABS: ALBUMIN 3.5 GM/DL (3.2-4.5); CALCIUM 8.9 MG/DL (8.5-10.1); CREATININE SERUM 1.42 MG/DL (0.60-1.30); PHOSPHORUS 3.4 MG/DL (2.3-4.7); POTASSIUM 4.1 MMOL/L (3.6-5.0); URIC ACID 6.1 MG/DL (2.6-7.2)
== END ==
LOC: LAB 14:17
PROVIDERS: ATTEND Internal Medicine Nephrology
DX: I12.9 Hypertensive chronic kidney disease with stage 1 through stage 4 chronic kidney disease, or unspecified chronic kidney disease (principal); N18.4 Chronic kidney disease, stage 4 (severe); E87.70 Fluid overload, unspecified; E79.0 Hyperuricemia without signs of inflammatory arthritis and tophaceous disease; R82.90 Unspecified abnormal findings in urine
CPT/HCPCS: 36415; 80069; 81000; 82570; 84156; 84550; 85025; 87088

== ENCOUNTER → 2018-07-28 | Outpatient (CLI) | payer MEDICARE, OTHER ==
[~2018-07-28] MED LIST changes: +ALLO100T PO; +ALPR0.254 PO; +AMLO10TA6 PO; +APIX2.5T PO; +CARV12.53 PO; +CLON0.1T PO; +FURO40TA4 PO; +HYDR-3812 PO; +HYDR-3924 PO; +OXYC10TA7 PO; +PANT40TA3 PO; +POLY17PO23 PO; +SENN-20 PO
--- NOTE | 2018-07-28 11:34 | Diagnostic Imaging Report ---
PROCEDURE: CT chest, abdomen, and pelvis without contrast. TECHNIQUE: Multiple contiguous axial images were obtained through the chest, abdomen, and pelvis without the use of intravenous contrast. INDICATION: Bladder cancer. Patient does complain of right upper quadrant pain radiating to the back. Comparison is made with prior CT from 05/05/2018. CT CHEST: A left chest wall port is in place. No axillary lymphadenopathy is seen. Hilar and mediastinal evaluation is limited without intravenous contrast. There is a moderate-sized pericardial effusion, similar to prior exam. A left-sided pleural effusion has increased since prior exam, now layering dependently to a thickness of approximately 3.7 cm. Parenchymal evaluation does show centrilobular emphysematous changes. There is some lingular infiltrate or atelectasis present, increased since prior study. There is some increasing consolidation in the left lower lobe as well. Nodular density in the posterior left lower lobe appear stable at 9 mm. A slightly irregular posterolateral right lower lobe density noted on prior studies no longer visualized. IMPRESSION: 1. Increase in size of left pleural effusion when compared with examination from 05/05/2018. There also appears to be some increasing infiltrate/atelectasis in the lingula with increasing parenchymal consolidation in the left lower lobe suggestive of atelectasis or pneumonia. Pericardial effusion is moderate and stable. CT ABDOMEN AND PELVIS: No discrete liver mass is identified. The gallbladder is unremarkable. The pancreas and spleen are unremarkable. No adrenal mass is seen. Both kidneys contain cortical low densities suggestive of cysts. The right sided renal collecting system and ureter are moderately dilated. Dilated right ureter is traced into the pelvis. Bladder does appear to have some irregular wall thickening. A thickening or mass near the right UVJ may contribute to the right-sided hydroureteronephrosis. This does appear to be more prominent than prior CT. The aorta is non-aneurysmal. There is increasing soft tissue identified in the central retroperitoneum in the aortocaval and left periaortic location suggestive of lymphadenopathy. Multiple enlarged lymph nodes are present. There appear to be some mildly prominent iliac nodes present as well bilaterally although evaluation is limited without intravenous contrast. There is enlarged left inguinal lymph node measuring 3.0 x 2.0 cm compared with 1.3 x 1.3 cm on prior. There is edema throughout the subcutaneous tissues of the abdomen and pelvis suggestive of anasarca. There is some free fluid in the pelvis, trace perihepatic fluid. IMPRESSION: 1. Development of moderate right hydroureteronephrosis. There does appear to be some irregularity and wall thickening of the urinary bladder near the right UVJ, suggestive of recurrent bladder mass. There has also been an increase in central retroperitoneal lymphadenopathy as well as iliac and left inguinal lymphadenopathy since prior CT consistent with metastatic disease. Free fluid in abdomen and pelvis is noted. Dictated by: Dictated on workstation # [id number]
--- NOTE | 2018-07-28 17:25 | History & Physicial ---
History of Present Illness History of Present Illness Reason for visit/HPI This is a 72 year old female with a history of bladder cancer with recurrence to her right groin. She had a repeat CT scan of the abdomen and pelvis done this morning for a followup of her most recent cancer treatment. She lost her this weekend and states that when she was called Thursday night for her need to go back to the hospital because her was worsening, she had a severe pain in her mid-thoracics and right flank area radiating down her back. She has had ongoing discomfort in that area since and also developed belching with abdominal bloating. She did admit to constipation as well but states that she has been passing flatus. She presented to my office today due to her ongoing pain and abdominal bloating with belching. On examination, she had upper abdominal bloating with tenderness. Her CT scan of the abdomen and pelvis showed inguinal and retroperitoneal adenopathy as well as a right hydroureter and right hydronephrosis with probable bladder mass at the right UV junction causing the obstruction. She was also noted to have abdominal ascites and a worsening left pleural effusion with atelectesis vs developing pneumonia in the left middle lobe. I directly admitted her from my office for further treatment and ordered a CXR to further assess her lung nguyễn. The on-call radiologist compared her CXR to the CT scan done earlier in the day and noticed subintimal separation in the descending aorta which looked like a dissecting aortic aneurysm. Cardiology was called and reviewed the CT scan as well and agreed that this was a dissecting descending aortic aneurysm and that the patient should be transferred immediately for a cardiovascular surgery consult. [facility] in [place], [place], was contacted first but they do not operated on descending aortic aneurysms so they suggested either transfer to [facility] or . The patient's urologist is at so transfer was contacted per the patient's request. However, the documentation specialist surgeon was in a surgery that was going to be several hours and they were at maximum patient capacity so they did not accept the patient. I also spoke with the CT surgeon documentation specialist at [facility] and he said he would accept the patient but that she was not a surgical candidate due to her metastatic bladder cancer. He suggested medical management with blood pressure control and hospice. The patient is agreeable to this and will be transferred to the ICU for medical management. She requests a DNR status. Date of Admission Jul 28, 2018 Date Seen by a Provider: Jul 28, 2018 Time Seen by a Provider: 17:12 I consulted on this patient on 07/28/18 17:12 Attending Physician Aleks Schmidt MD Admitting Physician Claudia Francisco DO Consult Allergies and Home Medications Allergies Coded Allergies: No Known Drug Allergies (Verified , 05/19/07) Home Medications Allopurinol 100 Mg Tablet, 100 MG PO DAILY, (Reported) Apixaban 2.5 Mg Tablet, 2.5 MG PO BID, (Reported) Clonidine HCl 0.1 Mg Tablet, 0.1 MG PO DAILY, (Reported) Ferrous Sulfate 325 Mg Tablet, 650 MG PO DAILY, (Reported) TAKES 2 (325MG) TABLETS Furosemide 40 Mg Tablet, 40 MG PO TuSa, (Reported) Hydralazine HCl 50 Mg Tablet, 75 MG PO TID, (Reported) TAKES 1 & 1/2 (50MG) TABLET Hydrocodone/Acetaminophen 1 Each Tablet, 1 TAB PO Q6H PRN for PAIN-MODERATE, ( Reported) Patient Home Medication List Home Medication List Reviewed: Yes Past Gnxgmmc-Lrznyl-Hwlxar Hx Patient Social History Marrital Status: ( 3 days ago) Smoking Status: Current Everyday Smoker Type Used: Cigarettes Recent Foreign Travel: No Contact w/other who traveled: No Recent Hopitalizations: No Immunizations Up To Date Tetanus Booster (TDap): Unknown Date of Pneumonia Vaccine: May 30, 2015 Seasonal Allergies Seasonal Allergies: Yes Surgeries Yes (left TKR) Abdominal, Hysterectomy Respiratory Yes Currently Using CPAP: No Currently Using BIPAP: No Cardiovascular Yes Atrial Fibrillation, Hypertension Neurological No Reproductive System Hx Reproductive Disorders: No Sexually Transmitted Disease: No HIV/AIDS: No Female Reproductive Disorders: Denies Genitourinary Yes Bladder Infection Gastrointestinal Yes Gastrointestinal Bleed, Esophagitis Musculoskeletal Yes (ARTHRITIS) Arthritis Endocrine History of Endocrine Disorders: No HEENT History of HEENT Disorders: Yes HEENT Disorders: Cataract Loss of Vision: Denies Hearing Impairment: Denies Cancer Yes Bladder Did You Recieve Any Treatments: Yes Psychosocial History of Psychiatric Problem: No Integumentary History of Skin or Integumenta: No Blood Transfusions History of Blood Disorders: Yes (anemia) Family Medical History Significant Family History: No Pertinent Family Hx Family Hx: Patient reports no known family medical history. Review of Systems Constitutional: weakness EENTM: No see HPI, No no symptoms reported, No ear discharge, No hearing loss, No ear pain, No blurred vision, No double vision, No eye pain, No tearing, No vision loss, No dental problems, No hoarseness, No mouth pain, No mouth swelling , No epistaxis, No nose congestion, No nose pain, No throat pain, No throat swelling, No other Respiratory: dyspnea on exertion Cardiovascular: chest pain Genitourinary: pain (bladder cancer), other Musculoskeletal: back pain, muscle weakness Skin: No no symptoms reported, No see HPI, No change in color, No change in hair/nails, No dryness, No hx of skin cancer, No lesions, No lumps, No pruritus , No rash, No other Psychiatric/Neurological: Weakness Physical Exam Vital Signs Capillary Refill : Height, Weight, BMI Height: 5'10.00" Weight: 201lbs. 0.0oz. 91.223587zw; 28.8 BMI Method:Stated General Appearance: No Apparent Distress HEENT: Pharynx Normal Neck: Supple Respiratory: Decreased Breath Sounds, Rhonci, Wheezing Cardiovascular: Regular Rate, Rhythm, Systolic Murmur, Gallop/S4 Gastrointestinal: Normal Bowel Sounds, Soft, Distended, Tenderness (upper abdomen) Rectal: Deferred Back: CVA Tenderness (R) Extremity: Non Tender, No Calf Tenderness, No Pedal Edema Neurologic/Psychiatric: Alert, Oriented x3 Skin: Warm/Dry, Pallor Assessment/Plan Assessment and Plan 1. Dissecting Descending Thoracic Aortic Aneurysm--Medical management so transfer to the ICU and control BP 2. Right hydroureter/Right hydronephrosis with possible right UV junction tumor --urology consulted but any further workup or procedure may be on hold 3. Bladder Cancer with Mets--Discussed Hospice 4. COPD--Chronic, ongoing tobacco abuse 5. GERD and belching--continue Protonix and reglan Admission Diagnosis Admission Status: Inpatient Order (span 2 midnights) Reason for Inpatient Admission: ICU admission with nitroprusside drCLAUDIA Weldon DO Jul 28, 2018 17:25
== END ==
LOC: RAD 10:22
PROVIDERS: ATTEND Internal Medicine Hematology & Oncology
DX: C67.9 Malignant neoplasm of bladder, unspecified (principal); C77.9 Secondary and unspecified malignant neoplasm of lymph node, unspecified; J90 Pleural effusion, not elsewhere classified; J18.1 Lobar pneumonia, unspecified organism; I31.3 Pericardial effusion (noninflammatory)
CPT/HCPCS: 71250; 74176

== ENCOUNTER → 2018-08-10 | Outpatient (CLI) | payer MEDICARE, OTHER ==
[~2018-08-10] MED LIST changes: -POLY17PO23 PO; +POLY17PO31 PO
[2018-08-10 15:16] LABS: BASOPHILS % (AUTO) 0 % (0-10); EOSINOPHILS # (AUTO) 0.1 10^3/uL (0.0-0.3); EOSINOPHILS % (AUTO) 2 % (0-10); HEMATOCRIT 33 % (35-52); HEMOGLOBIN 10.7 G/DL (11.5-16.0); LYMPHOCYTES # (AUTO) 0.6 X 10^3 (1.0-4.0); LYMPHOCYTES % (AUTO) 9 % (12-44); MEAN CORPUSCULAR HEMOGLOBIN 28 PG (25-34); MEAN CORPUSCULAR HGB CONC 33 G/DL (32-36); MEAN CORPUSCULAR VOLUME 85 FL (80-99); MEAN PLATELET VOLUME 7.9 FL (7.4-10.4); MONOCYTES # (AUTO) 0.7 X 10^3 (0.0-1.0); MONOCYTES % (AUTO) 12 % (0-12); NEUTROPHILS # (AUTO) 4.8 X 10^3 (1.8-7.8); NEUTROPHILS % (AUTO) 77 % (42-75); PLATELET COUNT 272 10^3/uL (130-400); RED BLOOD COUNT 3.84 10^6/uL (4.35-5.85); RED CELL DISTRIBUTION WIDTH 13.7 % (10.0-14.5); WHITE BLOOD COUNT 6.2 10^3/uL (4.3-11.0)
[2018-08-10 15:33] LABS: ALBUMIN 3.7 GM/DL (3.2-4.5); BILIRUBIN,TOTAL 0.7 MG/DL (0.1-1.0); CALCIUM 9.5 MG/DL (8.5-10.1); CREATININE SERUM 1.51 MG/DL (0.60-1.30); POTASSIUM 4.2 MMOL/L (3.6-5.0); TOTAL PROTEIN 6.5 GM/DL (6.4-8.2)
--- NOTE | 2018-08-10 16:04 | Diagnostic Imaging Report ---
INDICATION: Left hip pain. TIME OF EXAMINATION: 3:45 PM. FINDINGS: Two views of the left hip demonstrate significant osteoarthritic changes. There is medial and superior joint space narrowing. There is sclerosis and subchondral cyst formation involving the femoral head and acetabulum. The femoral head and neck are intact. No fractures are seen. The rami are intact. IMPRESSION: Severe osteoarthritic changes of the left hip. No acute bony abnormality is detected. Dictated by: Dictated on workstation # [id number]
== END ==
LOC: LAB 15:01
PROVIDERS: ATTEND Family Medicine
DX: R53.83 Other fatigue (principal); D64.9 Anemia, unspecified; N28.9 Disorder of kidney and ureter, unspecified; M25.552 Pain in left hip
CPT/HCPCS: 36415; 73502; 80053; 85025

== ENCOUNTER → 2018-10-26 | Outpatient (RCR) | payer MEDICARE, OTHER ==
[2018-07-28 10:11] LABS: BASOPHILS % (AUTO) 0 % (0-10); EOSINOPHILS # (AUTO) 0.1 10^3/uL (0.0-0.3); EOSINOPHILS % (AUTO) 2 % (0-10); HEMATOCRIT 31 % (35-52); HEMOGLOBIN 10.2 G/DL (11.5-16.0); LYMPHOCYTES # (AUTO) 0.4 X 10^3 (1.0-4.0); LYMPHOCYTES % (AUTO) 6 % (12-44); MEAN CORPUSCULAR HEMOGLOBIN 30 PG (25-34); MEAN CORPUSCULAR HGB CONC 33 G/DL (32-36); MEAN CORPUSCULAR VOLUME 90 FL (80-99); MEAN PLATELET VOLUME 9.1 FL (7.4-10.4); MONOCYTES # (AUTO) 0.8 X 10^3 (0.0-1.0); MONOCYTES % (AUTO) 12 % (0-12); NEUTROPHILS # (AUTO) 5.8 X 10^3 (1.8-7.8); NEUTROPHILS % (AUTO) 81 % (42-75); PLATELET COUNT 169 10^3/uL (130-400); RED BLOOD COUNT 3.45 10^6/uL (4.35-5.85); RED CELL DISTRIBUTION WIDTH 13.3 % (10.0-14.5); WHITE BLOOD COUNT 7.2 10^3/uL (4.3-11.0)
[2018-07-28 10:29] LABS: ALBUMIN 3.6 GM/DL (3.2-4.5); BILIRUBIN,TOTAL 0.6 MG/DL (0.1-1.0); CALCIUM 8.8 MG/DL (8.5-10.1); CREATININE SERUM 1.46 MG/DL (0.60-1.30); POTASSIUM 3.9 MMOL/L (3.6-5.0); TOTAL PROTEIN 6.1 GM/DL (6.4-8.2)
--- NOTE | 2018-07-29 15:15 | CONSULTATION REPORT ---
DATE OF SERVICE: 07/29/2018 ATTENDING PHYSICIAN: Claudia Francisco DO. SUMMARY: After reviewing the patient's records, interviewing her and examining her, this is a 72-year-old white lady with known advanced metastatic cancer of the bladder, previously patient of an urologist in [place], she does not recall the name and then Dr. Guan at [facility]. She underwent radiation therapy and chemotherapy, but no radical cystectomy. She is being admitted with evidence of metastatic disease, the lymph nodes and liver mets, also bilateral ureteral obstruction, right greater than left, questionable thickening of the bladder wall, especially on the right side and some decrease in her kidney functions. The patient was also found to have a dissecting descending aortic aneurysm. She is seen by Dr. Tsang. She is in the ICU on monitoring and nitroprusside drip. IMPRESSION: Advanced metastatic cancer of the bladder with bilateral ureteral obstruction and renal insufficiency. PLAN: I had a lengthy discussion with the patient and her family regarding where to proceed from here, all depends on what is the prognosis of the cancer and if improving her kidney functions allow us to further treatment like chemotherapy, would give the patient some relief and some longevity. Then, we will consider putting stents if technically feasible, if not percutaneous nephrostomy; however, if we anticipate stents, the patient had to be medically stable and a candidate for the procedure, which we will address with Dr. Tsang. I also discussed the philosophical issue of renal failure versus from the cancer itself and the pain associated with it and other problems. The family and the patient fully understand, and they will talk among themselves to come up with certain decision. Meanwhile, I am going to discuss the situation with Dr. Tsang and Dr. Francisco and come to the best plan taking into consideration all the above. Job ID: [id number] DocumentID: [id number] Dictated Date: 07/29/2018 14:14:54 Education Courses Sales Representative Date: 07/29/2018 15:14:37 Dictated By: JOHNATHAN JONES MD
[2018-09-24 09:11] LABS: BASOPHILS % (AUTO) 0 % (0-10); EOSINOPHILS # (AUTO) 0.3 10^3/uL (0.0-0.3); EOSINOPHILS % (AUTO) 6 % (0-10); HEMATOCRIT 31 % (35-52); HEMOGLOBIN 9.6 G/DL (11.5-16.0); LYMPHOCYTES # (AUTO) 0.6 X 10^3 (1.0-4.0); LYMPHOCYTES % (AUTO) 11 % (12-44); MEAN CORPUSCULAR HEMOGLOBIN 27 PG (25-34); MEAN CORPUSCULAR HGB CONC 31 G/DL (32-36); MEAN CORPUSCULAR VOLUME 86 FL (80-99); MEAN PLATELET VOLUME 8.7 FL (7.4-10.4); MONOCYTES # (AUTO) 0.5 X 10^3 (0.0-1.0); MONOCYTES % (AUTO) 8 % (0-12); NEUTROPHILS % (AUTO) 75 % (42-75); PLATELET COUNT 172 10^3/uL (130-400); RED BLOOD COUNT 3.58 10^6/uL (4.35-5.85); RED CELL DISTRIBUTION WIDTH 15.6 % (10.0-14.5); WHITE BLOOD COUNT 5.4 10^3/uL (4.3-11.0)
[2018-09-24 09:27] LABS: ALBUMIN 3.5 GM/DL (3.2-4.5); BILIRUBIN,TOTAL 0.6 MG/DL (0.1-1.0); CALCIUM 9.1 MG/DL (8.5-10.1); CREATININE SERUM 1.65 MG/DL (0.60-1.30); POTASSIUM 4.7 MMOL/L (3.6-5.0); TOTAL PROTEIN 6.1 GM/DL (6.4-8.2)
[~2018-10-26] VITALS: Ht 177.8 cm; Wt 73.0 kg
[~2018-10-26] MED LIST changes: +NS IV 1000 ML (CANCER CTR) 1,000 ML ONE; +NS IV 500 ML (CANCER CENTER) IV SCH; +PEMBROLIZUMAB 200 MG in NS (IVPB) CANCER CENTER 50 ML IV SCH
[2018-10-26 10:41] LABS: BASOPHILS % (AUTO) 1 % (0-10); EOSINOPHILS # (AUTO) 0.3 10^3/uL (0.0-0.3); EOSINOPHILS % (AUTO) 4 % (0-10); HEMATOCRIT 32 % (35-52); HEMOGLOBIN 9.6 G/DL (11.5-16.0); LYMPHOCYTES # (AUTO) 0.5 X 10^3 (1.0-4.0); LYMPHOCYTES % (AUTO) 8 % (12-44); MEAN CORPUSCULAR HEMOGLOBIN 25 PG (25-34); MEAN CORPUSCULAR HGB CONC 31 G/DL (32-36); MEAN CORPUSCULAR VOLUME 80 FL (80-99); MEAN PLATELET VOLUME 8.8 FL (7.4-10.4); MONOCYTES # (AUTO) 0.5 X 10^3 (0.0-1.0); MONOCYTES % (AUTO) 8 % (0-12); NEUTROPHILS # (AUTO) 5.2 X 10^3 (1.8-7.8); NEUTROPHILS % (AUTO) 79 % (42-75); PLATELET COUNT 196 10^3/uL (130-400); RED BLOOD COUNT 3.92 10^6/uL (4.35-5.85); RED CELL DISTRIBUTION WIDTH 13.9 % (10.0-14.5); WHITE BLOOD COUNT 6.6 10^3/uL (4.3-11.0)
[2018-10-26 11:11] LABS: ALBUMIN 3.2 GM/DL (3.2-4.5); BILIRUBIN,TOTAL 0.6 MG/DL (0.1-1.0); CALCIUM 8.5 MG/DL (8.5-10.1); CREATININE SERUM 1.19 MG/DL (0.60-1.30); POTASSIUM 4.1 MMOL/L (3.6-5.0); TOTAL PROTEIN 5.8 GM/DL (6.4-8.2)
== END | disposition home or self-care (01) ==
LOC: ONC 07-28 09:57
PROVIDERS: ATTEND Internal Medicine Hematology & Oncology
DX: Z51.11 Encounter for antineoplastic chemotherapy (principal); C77.4 Secondary and unspecified malignant neoplasm of inguinal and lower limb lymph nodes; Z85.51 Personal history of malignant neoplasm of bladder; D50.9 Iron deficiency anemia, unspecified; I10 Essential (primary) hypertension; F17.210 Nicotine dependence, cigarettes, uncomplicated; Z79.899 Other long term (current) drug therapy
CPT/HCPCS: 36591; 80053; 85025; 96360; 96361; 96413; 96523; 99213

== ENCOUNTER → 2018-10-26 | Outpatient (CLI) | payer MEDICARE, OTHER ==
[~2018-10-26] MED LIST changes: +BARIUM SUSPENSION 2.1% (VANILLA SILQ) 450 ML PO ONE; +CATHETER FLUSH 10 ML SYR IV PRN; +IOHEXOL 350 MG/ML 100 ML (OMNIPAQUE 350) VIAL IV ONE; +NS 100 ML (IVPB) BAG IV ONE; -NS IV 1000 ML (CANCER CTR) 1,000 ML ONE; -NS IV 500 ML (CANCER CENTER) IV SCH; -PEMBROLIZUMAB 200 MG in NS (IVPB) CANCER CENTER 50 ML IV SCH; +RECEIVED CONTRAST (Hold Metformin) IV SCH
--- NOTE | 2018-10-26 13:26 | Diagnostic Imaging Report ---
PROCEDURE: CT chest with contrast, CT abdomen and pelvis with and without contrast. TECHNIQUE: Pre and post intravenous contrast axial imaging of the abdomen and pelvis and post contrast axial imaging of the chest were performed. INDICATION: Bladder cancer for restaging. COMPARISON: Exam compared with CT chest and abdomen performed on 08/03/2018. FINDINGS: Chest: There has been significant adverse interval change with the development of findings consistent with soft tissue and bony metastatic disease. This patient has development of left supraclavicular lymphadenopathy with the largest confluent mass or abnormal soft tissue posterior to the medial third of the left clavicle at 3.5 x 2.3 cm. There is lymphadenopathy in the left axilla. The largest node is 1.6 x 1.4 cm. There are mixed lytic and sclerotic destructive changes to the upper third of the manubrium, presumed on a metastatic basis. There is perivascular superior mediastinal lymphadenopathy as a new finding. The largest mass is 1.4 cm. There is left para-aortic lymphadenopathy having developed at 2.3 x 1.6 cm and there is high right paratracheal/paraesophageal lymphadenopathy in the upper mediastinum at 2.1 x 1.2 cm. Limited dissection of the distal descending thoracic aorta shows reduction in flow within the false luminal component with no increase in vascular caliber or rupture. Moderate-sized unilateral left pleural effusion may be smaller than previous without appreciable pleural nodularity. Abdomen and pelvis: There has been the development of widespread multifocal hepatic metastatic disease involving left and right liver lobes. Largest confluent infiltration in the left lobe measures a long axis of 4.6 cm and the largest lesion in the right lobe has a diameter of 3.6 cm. Low density but not appreciably cystic lesion in the spleen superiorly is a new finding and suspect at 11 mm. There is periaortic retroperitoneal lymphadenopathy just above the aortic bifurcation. The largest confluent raul mass is of 4.0 x 2.5 cm at the level of the renal arteries. The largest mass is on the right posterior to the cava measuring 3.3 x 1.8 cm. There is pathological adenopathy along the left pelvic sidewall where the largest irregular-appearing node was 2.7 x 1.6 cm. There is presumed metastatic adenopathy in the left inguinal canal. The largest mass is 3 cm x 2.1 cm. Advanced degenerative changes involving left greater than right hips as well as lumbar spine but no suspicious bony destructive process in the abdomen or pelvis. The left-sided double-J stent has been removed with diverticulation and trabeculation of the urinary bladder with [id number] left and mild right hydroureteronephrosis. No radiodense stone. IMPRESSION: Development of extensive soft tissue and osseous metastatic disease involves the patient's chest, abdomen, and pelvis as described. Dictated by: Dictated on workstation # [id number]
--- NOTE | 2018-10-26 18:22 | Diagnostic Imaging Report ---
EXAMINATION: Whole-body bone scan. INDICATION: Bladder cancer. TECHNIQUE: This study was performed following administration of 26.4 mCi of 99m-technetium MDP. Anterior and posterior whole-body images were obtained. Spot films of the skull and thorax were also obtained in the lateral projection. FINDINGS: There are no prior nuclear medicine studies available for comparison. However, the CT chest, abdomen, and pelvis exam performed in conjunction with this study earlier today did note extensive soft tissue and osseous metastatic disease related to the patient's diagnosis of bladder cancer. On this exam, there are numerous areas of abnormal uptake throughout the spine, the ribs, the pelvis, and the femurs. There is also intense uptake in the sternum. There are also a number of foci of abnormal uptake involving the calvarium and the right shoulder. These findings do suggest extensive metastatic disease. Both kidneys do show excretion of the radiotracer. IMPRESSION: There is extensive metastatic skeletal disease. Dictated by: Dictated on workstation # [id number]
== END ==
LOC: CARD 11:57
PROVIDERS: ATTEND Nurse Practitioner Adult Health
DX: Z01.89 Encounter for other specified special examinations (principal); C67.9 Malignant neoplasm of bladder, unspecified; C77.5 Secondary and unspecified malignant neoplasm of intrapelvic lymph nodes; C79.89 Secondary malignant neoplasm of other specified sites; C78.7 Secondary malignant neoplasm of liver and intrahepatic bile duct; C79.51 Secondary malignant neoplasm of bone
CPT/HCPCS: 71260; 74178; 78306

== ENCOUNTER → 2018-11-29 | Outpatient (CLI) | payer MEDICARE, OTHER ==
[~2018-11-29] MED LIST changes: -AMLO10TA6 PO; +AMLO10TA7 PO; -BARIUM SUSPENSION 2.1% (VANILLA SILQ) 450 ML PO ONE; -CATHETER FLUSH 10 ML SYR IV PRN; -IOHEXOL 350 MG/ML 100 ML (OMNIPAQUE 350) VIAL IV ONE; -NS 100 ML (IVPB) BAG IV ONE; -RECEIVED CONTRAST (Hold Metformin) IV SCH
--- NOTE | 2018-11-29 14:30 | Diagnostic Imaging Report ---
INDICATION: Shortness of breath. COMPARISON: Comparison made with a chest CT most recently of 10/26/2018. FINDINGS: When differing modalities taken into account, the left pleural fluid volume is similar if not likely decreased. Enlargement of the cardiac silhouette showed similar appearance but also may be improved mildly. There is mild vascular congestion but no jayatn edema. There is mild basilar atelectasis. IMPRESSION: When compared to a prior CT, left pleural fluid volume and cardiomegaly have probably improved with no consolidating pneumonia, pneumothorax, or adverse interval change. Dictated by: Dictated on workstation # [id number]
== END ==
LOC: RAD 13:41
PROVIDERS: ATTEND Nurse Practitioner Adult Health
DX: C67.9 Malignant neoplasm of bladder, unspecified (principal); I51.7 Cardiomegaly; R06.02 Shortness of breath
CPT/HCPCS: 71046

== ENCOUNTER 2019-01-03 08:08 | Outpatient (RCR) | payer MEDICARE, OTHER ==
[~2019-01-03 08:08] MED LIST changes: -RIVA20TA PO; +RIVA20TA2 PO
== END 2019-04-03 | disposition home or self-care (01) ==
LOC: PULM 08:08
PROVIDERS: ATTEND Family Medicine
DX: J44.9 Chronic obstructive pulmonary disease, unspecified (principal); R53.83 Other fatigue
CPT/HCPCS: 99211

== ENCOUNTER 2019-01-20 14:12 | Outpatient (RCR) | payer MEDICARE, OTHER ==
[2018-11-04 14:26] LABS: BASOPHILS % (AUTO) 0 % (0-10); EOSINOPHILS # (AUTO) 0.4 10^3/uL (0.0-0.3); EOSINOPHILS % (AUTO) 6 % (0-10); HEMATOCRIT 29 % (35-52); HEMOGLOBIN 8.9 G/DL (11.5-16.0); LYMPHOCYTES # (AUTO) 0.8 X 10^3 (1.0-4.0); LYMPHOCYTES % (AUTO) 12 % (12-44); MEAN CORPUSCULAR HEMOGLOBIN 25 PG (25-34); MEAN CORPUSCULAR HGB CONC 31 G/DL (32-36); MEAN CORPUSCULAR VOLUME 80 FL (80-99); MEAN PLATELET VOLUME 8.7 FL (7.4-10.4); MONOCYTES # (AUTO) 0.8 X 10^3 (0.0-1.0); MONOCYTES % (AUTO) 12 % (0-12); NEUTROPHILS # (AUTO) 4.7 X 10^3 (1.8-7.8); NEUTROPHILS % (AUTO) 70 % (42-75); PLATELET COUNT 226 10^3/uL (130-400); RED CELL DISTRIBUTION WIDTH 14.9 % (10.0-14.5); WHITE BLOOD COUNT 6.8 10^3/uL (4.3-11.0)
[2018-11-04 14:52] LABS: ALBUMIN 3.4 GM/DL (3.2-4.5); BILIRUBIN,TOTAL 0.5 MG/DL (0.1-1.0); CALCIUM 8.7 MG/DL (8.5-10.1); CREATININE SERUM 1.41 MG/DL (0.60-1.30); POTASSIUM 4.4 MMOL/L (3.6-5.0)
--- NOTE | 2018-11-10 16:19 | Diagnostic Imaging Report ---
EXAMINATION: Bilateral femurs at 3:34 p.m. INDICATION: Leg pain and weakness. AP and lateral views of both femurs were obtained. FINDINGS: There is no fracture, dislocation, or acute bony abnormality evident. As noted on the previous left hip exam of 08/10/2018, there is severe degenerative disease involving the left hip joint. There is only moderate degenerative disease of the right hip joint. There is fairly severe degenerative disease of the right knee joint with the medial compartment and the patellofemoral space the most severely affected. There is also moderate narrowing of the lateral compartment and chondrocalcinosis of both menisci. There is a total knee prosthesis in place on the left. The soft tissues are unremarkable. IMPRESSION: 1. There is no evidence for an acute bony abnormality. 2. There is severe degenerative disease of the left hip and the right knee. 3. There is a total knee prosthesis in place on the left. Dictated by: Dictated on workstation # [id number]
[2018-11-25 13:39] LABS: BASOPHILS % (AUTO) 1 % (0-10); EOSINOPHILS # (AUTO) 0.2 10^3/uL (0.0-0.3); EOSINOPHILS % (AUTO) 3 % (0-10); HEMATOCRIT 30 % (35-52); HEMOGLOBIN 8.7 G/DL (11.5-16.0); LYMPHOCYTES # (AUTO) 0.6 X 10^3 (1.0-4.0); LYMPHOCYTES % (AUTO) 11 % (12-44); MEAN CORPUSCULAR HEMOGLOBIN 25 PG (25-34); MEAN CORPUSCULAR HGB CONC 29 G/DL (32-36); MEAN CORPUSCULAR VOLUME 85 FL (80-99); MEAN PLATELET VOLUME 8.3 FL (7.4-10.4); MONOCYTES # (AUTO) 0.6 X 10^3 (0.0-1.0); MONOCYTES % (AUTO) 11 % (0-12); NEUTROPHILS % (AUTO) 74 % (42-75); PLATELET COUNT 160 10^3/uL (130-400); RED CELL DISTRIBUTION WIDTH 18.6 % (10.0-14.5); WHITE BLOOD COUNT 5.3 10^3/uL (4.3-11.0)
[2018-11-25 14:01] LABS: ALBUMIN 3.2 GM/DL (3.2-4.5); BILIRUBIN,TOTAL 0.4 MG/DL (0.1-1.0); CALCIUM 8.6 MG/DL (8.5-10.1); CREATININE SERUM 1.61 MG/DL (0.60-1.30); POTASSIUM 4.3 MMOL/L (3.6-5.0); TOTAL PROTEIN 5.8 GM/DL (6.4-8.2)
[2018-12-16 13:15] LABS: BASOPHILS % (AUTO) 0 % (0-10); EOSINOPHILS # (AUTO) 0.1 10^3/uL (0.0-0.3); EOSINOPHILS % (AUTO) 2 % (0-10); HEMATOCRIT 31 % (35-52); LYMPHOCYTES # (AUTO) 0.6 X 10^3 (1.0-4.0); LYMPHOCYTES % (AUTO) 10 % (12-44); MEAN CORPUSCULAR HEMOGLOBIN 25 PG (25-34); MEAN CORPUSCULAR HGB CONC 29 G/DL (32-36); MEAN CORPUSCULAR VOLUME 85 FL (80-99); MEAN PLATELET VOLUME 8.2 FL (7.4-10.4); MONOCYTES # (AUTO) 0.7 X 10^3 (0.0-1.0); MONOCYTES % (AUTO) 11 % (0-12); NEUTROPHILS # (AUTO) 4.6 X 10^3 (1.8-7.8); NEUTROPHILS % (AUTO) 77 % (42-75); PLATELET COUNT 181 10^3/uL (130-400); RED CELL DISTRIBUTION WIDTH 18.3 % (10.0-14.5)
[2018-12-16 13:42] LABS: ALBUMIN 3.2 GM/DL (3.2-4.5); BILIRUBIN,TOTAL 0.5 MG/DL (0.1-1.0); CALCIUM 8.6 MG/DL (8.5-10.1); CREATININE SERUM 1.22 MG/DL (0.60-1.30); POTASSIUM 4.4 MMOL/L (3.6-5.0); TOTAL PROTEIN 5.7 GM/DL (6.4-8.2)
[2019-01-06 13:55] LABS: BASOPHILS % (AUTO) 0 % (0-10); EOSINOPHILS % (AUTO) 0 % (0-10); HEMATOCRIT 32 % (35-52); HEMOGLOBIN 9.9 G/DL (11.5-16.0); LYMPHOCYTES # (AUTO) 0.5 X 10^3 (1.0-4.0); LYMPHOCYTES % (AUTO) 6 % (12-44); MEAN CORPUSCULAR HEMOGLOBIN 26 PG (25-34); MEAN CORPUSCULAR HGB CONC 31 G/DL (32-36); MEAN CORPUSCULAR VOLUME 82 FL (80-99); MEAN PLATELET VOLUME 8.9 FL (7.4-10.4); MONOCYTES # (AUTO) 1.1 X 10^3 (0.0-1.0); MONOCYTES % (AUTO) 12 % (0-12); NEUTROPHILS # (AUTO) 7.4 X 10^3 (1.8-7.8); NEUTROPHILS % (AUTO) 82 % (42-75); PLATELET COUNT 228 10^3/uL (130-400); RED CELL DISTRIBUTION WIDTH 16.4 % (10.0-14.5)
[2019-01-06 14:12] LABS: BILIRUBIN,TOTAL 0.7 MG/DL (0.1-1.0); CALCIUM 8.7 MG/DL (8.5-10.1); CREATININE SERUM 1.23 MG/DL (0.60-1.30); POTASSIUM 4.5 MMOL/L (3.6-5.0); TOTAL PROTEIN 5.7 GM/DL (6.4-8.2)
[~2019-01-20] VITALS: Ht 177.8 cm; Wt 77.1 kg
[~2019-01-20 14:12] MED LIST changes: +NS IV 500 ML (CANCER CENTER) IV SCH; +PEMBROLIZUMAB 200 MG in NS (IVPB) CANCER CENTER 50 ML IV SCH
== END 2019-02-02 | disposition home or self-care (01) ==
LOC: ONC 14:12
PROVIDERS: ATTEND Internal Medicine Hematology & Oncology
DX: Z51.11 Encounter for antineoplastic chemotherapy (principal); C77.4 Secondary and unspecified malignant neoplasm of inguinal and lower limb lymph nodes; C77.5 Secondary and unspecified malignant neoplasm of intrapelvic lymph nodes; C79.89 Secondary malignant neoplasm of other specified sites; C78.7 Secondary malignant neoplasm of liver and intrahepatic bile duct; C79.51 Secondary malignant neoplasm of bone; Z85.51 Personal history of malignant neoplasm of bladder; D50.9 Iron deficiency anemia, unspecified; I10 Essential (primary) hypertension; F17.210 Nicotine dependence, cigarettes, uncomplicated; Z79.899 Other long term (current) drug therapy
CPT/HCPCS: 36591; 77290; 77295; 77300; 77334; 77336; 77417; 77470; 80053; 85025; 96413; 99214

== ENCOUNTER → 2019-01-20 | Outpatient (CLI) | payer MEDICARE, OTHER ==
--- NOTE | 2019-01-20 14:29 | Diagnostic Imaging Report ---
PROCEDURE: CT chest, abdomen, and pelvis without contrast. TECHNIQUE: Multiple contiguous axial images were obtained through the chest, abdomen, and pelvis without the use of intravenous contrast. Auto Exposure Controls were utilized during the CT exam to meet ALARA standards for radiation dose reduction. INDICATION: Bladder cancer Findings: There is mild emphysematous disease. There is a left pleural effusion and a pericardial effusion. There is no pneumothorax. Note is again made of supraclavicular pathologically enlarged adenopathy. The largest left axillary lymph node on today's exam now measures 2.5 cm. This compares to a previous measurement of 1.4 cm. Evaluation of mediastinal adenopathy is difficult on today's exam as this was done without contrast. There is a lytic metastasis in the manubrium. There's been progression of the diffuse osseous metastatic disease in the spine. There are metastases in the scapula bilaterally. There is extensive hepatic metastatic disease which appears to have progressed since prior examination. Spleen is normal. The pancreas is unremarkable. Adrenal glands are grossly unremarkable. There are bilateral renal cysts. There is intra aortocaval and left periaortic retroperitoneal adenopathy. Bowel gas pattern is nonspecific. Bladder is normal. There is no pelvic mass or adenopathy. IMPRESSION: Marked progression of diffuse osseous metastatic disease. The diffuse hepatic metastatic disease also appears increased since prior examination The supraclavicular and mediastinal adenopathy is more prominent on today's examination. Additionally there is persistent retroperitoneal adenopathy. Left base consolidation with left pleural effusion as well as a pericardial effusion. Dictated by: Dictated on workstation # [id number]
== END ==
LOC: RAD 13:54
PROVIDERS: ATTEND Internal Medicine Hematology & Oncology
DX: C76.3 Malignant neoplasm of pelvis (principal); C77.5 Secondary and unspecified malignant neoplasm of intrapelvic lymph nodes; C78.7 Secondary malignant neoplasm of liver and intrahepatic bile duct; J90 Pleural effusion, not elsewhere classified; J18.1 Lobar pneumonia, unspecified organism; I31.3 Pericardial effusion (noninflammatory); R59.0 Localized enlarged lymph nodes
CPT/HCPCS: 71250; 74176